=== PATIENT | male | born 1955 | race Caucasian/White ===

== ENCOUNTER 2018-02-18 08:15 | Inpatient (IN) | payer MEDICAID, OTHER ==
[~2018-02-18] VITALS: Ht 165.1 cm; Wt 64.7 kg
[~2018-02-18 08:15] MED LIST: BACDS PO; CEPH500C5 PO; METF500T PO; NO HOME MEDS
[2018-02-18] MEDS ORDERED: normal saline 1000ML IV soln IVB ONE (08:50)
[2018-02-18] MEDS ORDERED: levoFLOXACIN-Levaquin 750MG/D5 150 ML IV ONE (08:50)
[2018-02-18] MEDS ORDERED: vancomycin/NS 1 GM ADD-VANTAGE 250 ML IV ONE (08:50)
[2018-02-18 09:23] LABS: BASOPHILS # (AUTO) 0.1 X10'3 (0-0.2); BASOPHILS % (AUTO) 0.9 % (0-1); EOSINOPHILS % (AUTO) 0.3 % (0-6); HEMATOCRIT 42.4 % (42.0-52.0); HEMOGLOBIN 14.6 g/dl (14.0-17.9); LYMPHOCYTES # (AUTO) 1.8 X10'3 (1.1-4.8); LYMPHOCYTES % (AUTO) 15.1 % (21-51); MEAN CORPUSCULAR HEMOGLOBIN 30.3 PG (27.0-31.0); MEAN CORPUSCULAR HGB CONC 34.4 % (33.0-36.5); MEAN CORPUSCULAR VOLUME 88.1 FL (78-98); MEAN PLATELET VOLUME 8.2 FL (7.4-10.4); MONOCYTES # (AUTO) 1.5 X10'3 (0-0.9); MONOCYTES % (AUTO) 13.1 % (2-12); NEUTROPHILS # (AUTO) 8.2 X10'3 (1.8-7.7); NEUTROPHILS % (AUTO) 70.6 % (42-75); PLATELET COUNT 271 X10'3 (140-440); RED BLOOD COUNT 4.82 X10'6 (4.70-6.10); RED CELL DISTRIBUTION WIDTH 11.7 % (11.5-14.5); WHITE BLOOD COUNT 11.6 X10'3 (4.5-11.0)
[2018-02-18 09:38] LABS: PROTHROMBIN TIME 10.8 SECONDS (9.0-12.0)
[2018-02-18 09:45] LABS: ALANINE AMINOTRANSFERASE 39 U/L (12-78); ALBUMIN 3.1 G/DL (3.4-5.0); ALBUMIN/GLOBULIN RATIO 0.5 (1.1-1.5); ALKALINE PHOSPHATASE 102 IU/L (46-116); ANION GAP 11 (8-16); ASPARTATE AMINO TRANSFERASE 35 U/L (10-37); BILIRUBIN,TOTAL 0.3 MG/DL (0.1-1.0); BLOOD UREA NITROGEN 8 MG/DL (7-18); BUN/CREATININE RATIO 8.2 (5.4-32.0); C-REACTIVE PROTEIN 24.05 MG/DL (0.0-0.5); CALCIUM 9.4 MG/DL (8.5-10.1); CHLORIDE 92 MMOL/L (99-107); CREATININE 0.98 MG/DL (0.60-1.10); GLUCOSE 215 MG/DL (70-104); POTASSIUM 3.8 MMOL/L (3.5-5.1); SODIUM 129 MMOL/L (135-145); TOTAL CARBON DIOXIDE 25.6 MMOL/L (24-32); eGFR 78 ML/MIN
[2018-02-18 10:42] LABS: HEMOGLOBIN A1C 7.6 % (4.5-6.2)
[2018-02-18] MEDS ORDERED: acetaminophen 325mg tablet PO PRN ×2 (10:55)
[2018-02-18] MEDS ORDERED: potassium Cl 40MEQ/NS 500ml 500 ML IV PRN ×2 (10:55)
[2018-02-18] MEDS ORDERED: potassium Cl 20 mEq SR tablet PO PRN ×2 (10:55)
[2018-02-18] MEDS ORDERED: dextrose 50%-water 50ml dispensing syringe IV PRN ×2 (10:55)
[2018-02-18] MEDS ORDERED: magnesium 1gm/100ml D5W IVPB 100 ML IV PRN (10:55)
[2018-02-18] MEDS ORDERED: docusate sod 100mg capsule PO PRN (10:55)
[2018-02-18] MEDS ORDERED: dextrose ORAL solution 15 GM/59 ML bottle PO PRN ×2 (10:55)
[2018-02-18] MEDS ORDERED: ondansetron/PF 4mg/2ml inj IV PRN (10:55)
[2018-02-18] MEDS ORDERED: glucagon, human recombinant 1mg kit SUBCUT PRN (10:55)
[2018-02-18] MEDS ORDERED: magnesium Cl slow-release 64mg tablet PO PRN (10:55)
[2018-02-18] MEDS ORDERED: magnesium 4gm in 100ml NS 100 ML IV PRN (10:55)
[2018-02-18] MEDS ORDERED: MESSAGE TO PHARMACY PO ONE (10:55)
[2018-02-18] MEDS: normal saline 1000ml 1,000 ML IV SCH ×2 (11:36→21:07)
[2018-02-18] MEDS ORDERED: METF500T PO (11:50)
[2018-02-18] MEDS ORDERED: BACDS PO (11:50)
[2018-02-18] MEDS ORDERED: CEPH-572 PO (11:50)
[2018-02-18] MEDS: HYDROcodone/acetaminophen 5mg/325mg tablet PO PRN ×2 (11:52→19:07)
[2018-02-18 13:00] VITALS: BP 126/61
[2018-02-18] MEDS: insulin Lispro (HumaLOG) vial - multi-dose SQ SCH (14:29)
[2018-02-18 18:00] VITALS: BP 141/51
[2018-02-18] MEDS: vancomycin/NS 1 GM ADD-VANTAGE 250 ML IV SCH (20:54)
[2018-02-18] MEDS: insulin glargine (Lantus) pen - multi-dose SQ SCH (21:00)
[2018-02-18] MEDS ORDERED: temazepam 15mg capsule PO PRN (21:00)
[2018-02-18] MEDS: heparin, porcine 5000 units/ml vial SQ SCH (21:24)
[2018-02-18 22:00] VITALS: BP 119/73
[2018-02-19] MEDS: HYDROcodone/acetaminophen 5mg/325mg tablet PO PRN ×5 (01:30→21:59)
[2018-02-19 02:00] VITALS: BP 135/70
[2018-02-19 05:58] LABS: BASOPHILS % (AUTO) 0.5 % (0-1); EOSINOPHILS # (AUTO) 0.1 X10'3 (0-0.9); EOSINOPHILS % (AUTO) 1.4 % (0-6); HEMATOCRIT 33.2 % (42.0-52.0); HEMOGLOBIN 11.6 g/dl (14.0-17.9); LYMPHOCYTES # (AUTO) 2.7 X10'3 (1.1-4.8); MEAN CORPUSCULAR HEMOGLOBIN 30.5 PG (27.0-31.0); MEAN CORPUSCULAR HGB CONC 34.8 % (33.0-36.5); MEAN CORPUSCULAR VOLUME 87.5 FL (78-98); MEAN PLATELET VOLUME 8.4 FL (7.4-10.4); MONOCYTES # (AUTO) 1.3 X10'3 (0-0.9); MONOCYTES % (AUTO) 12.9 % (2-12); NEUTROPHILS # (AUTO) 6.1 X10'3 (1.8-7.7); NEUTROPHILS % (AUTO) 59.2 % (42-75); PLATELET COUNT 257 X10'3 (140-440); RED BLOOD COUNT 3.79 X10'6 (4.70-6.10); RED CELL DISTRIBUTION WIDTH 12.5 % (11.5-14.5); WHITE BLOOD COUNT 10.4 X10'3 (4.5-11.0)
[2018-02-19 06:00] VITALS: BP 120/68
[2018-02-19 06:19] LABS: ALANINE AMINOTRANSFERASE 38 U/L (12-78); ALBUMIN 2.3 G/DL (3.4-5.0); ALBUMIN/GLOBULIN RATIO 0.5 (1.1-1.5); ALKALINE PHOSPHATASE 72 IU/L (46-116); ANION GAP 8 (8-16); ASPARTATE AMINO TRANSFERASE 30 U/L (10-37); BILIRUBIN,TOTAL 0.3 MG/DL (0.1-1.0); BLOOD UREA NITROGEN 9 MG/DL (7-18); BUN/CREATININE RATIO 10.5 (5.4-32.0); CALCIUM 8.3 MG/DL (8.5-10.1); CHLORIDE 102 MMOL/L (99-107); CREATININE 0.86 MG/DL (0.60-1.10); GLUCOSE 143 MG/DL (70-104); POTASSIUM 4.2 MMOL/L (3.5-5.1); SODIUM 136 MMOL/L (135-145); TOTAL CARBON DIOXIDE 26.3 MMOL/L (24-32); TOTAL PROTEIN 6.7 G/DL (6.4-8.2); eGFR 90 ML/MIN
[2018-02-19] MEDS: K and/or MAG REPLACEMENT MC SCH (07:10)
[2018-02-19] MEDS: normal saline 1000ml 1,000 ML IV SCH ×2 (08:42→20:33)
[2018-02-19] MEDS: nicotine 14mg patch - 24hr TD SCH (08:43)
[2018-02-19] MEDS: heparin, porcine 5000 units/ml vial SQ SCH ×2 (08:43→20:33)
[2018-02-19] MEDS: vancomycin/NS 1 GM ADD-VANTAGE 250 ML IV SCH ×2 (08:45→21:55)
[2018-02-19 10:00] VITALS: BP 135/60
[2018-02-19] MEDS ORDERED: iohexol 350MG/ML 100ml bottle IV ONE (10:45)
[2018-02-19] MEDS ORDERED: iohexol 350 MG/ML 50ML vial IV ONE (10:46)
[2018-02-19] MEDS ORDERED: LORazepam 2 mg/ml vial IV PRN (18:50)
[2018-02-19] MEDS ORDERED: thiamine inj. 100 MG in normal saline 100ml IV soln 100 ML IV ONE (18:50)
[2018-02-19] MEDS ORDERED: haloperidol lactate 5mg/ml inj IM PRN (18:50)
[2018-02-19] MEDS ORDERED: haloperidol 5mg tablet PO PRN (18:50)
[2018-02-19] MEDS ORDERED: LORazepam 1 MG tablet PO PRN (18:50)
[2018-02-19] MEDS ORDERED: VANCOMYCIN LEVEL IV ONE (20:30)
[2018-02-19] MEDS: lactobacillus rhamnosus 10,000 MMU CELLS/CAPSULE PO SCH (20:34)
[2018-02-19] MEDS: insulin glargine (Lantus) pen - multi-dose SQ SCH (21:13)
[2018-02-19] MEDS: ertapenem sod inj 1 GM in normal saline 100ml IV soln 100 ML IV SCH (21:19)
[2018-02-20] VITALS (18 sets, daily range): BP systolic 121–168; BP diastolic 55–80
[2018-02-20] MEDS: normal saline 1000ml 1,000 ML IV SCH ×2 (02:55→13:34)
[2018-02-20] MEDS: nicotine 14mg patch - 24hr TD SCH (07:44)
[2018-02-20] MEDS: ertapenem sod inj 1 GM in normal saline 100ml IV soln 100 ML IV SCH (07:44)
[2018-02-20] MEDS: heparin, porcine 5000 units/ml vial SQ SCH ×2 (08:00→20:52)
[2018-02-20] MEDS ORDERED: folic acid inj. 2 MG, thiamine inj. 100 MG, MVI, adult No.4 with vit. K 10 ML in dextro... IV SCH ×4 (08:00)
[2018-02-20] MEDS: lactobacillus rhamnosus 10,000 MMU CELLS/CAPSULE PO SCH ×2 (08:00→20:52)
[2018-02-20] MEDS: K and/or MAG REPLACEMENT MC SCH (08:00)
[2018-02-20 08:31] LABS: BASOPHILS # (AUTO) 0.1 X10'3 (0-0.2); BASOPHILS % (AUTO) 0.7 % (0-1); EOSINOPHILS # (AUTO) 0.2 X10'3 (0-0.9); EOSINOPHILS % (AUTO) 2.3 % (0-6); HEMATOCRIT 35.4 % (42.0-52.0); HEMOGLOBIN 12.2 g/dl (14.0-17.9); LYMPHOCYTES # (AUTO) 1.8 X10'3 (1.1-4.8); LYMPHOCYTES % (AUTO) 18.9 % (21-51); MEAN CORPUSCULAR HEMOGLOBIN 30.3 PG (27.0-31.0); MEAN CORPUSCULAR HGB CONC 34.5 % (33.0-36.5); MEAN CORPUSCULAR VOLUME 87.9 FL (78-98); MEAN PLATELET VOLUME 7.6 FL (7.4-10.4); MONOCYTES % (AUTO) 10.5 % (2-12); NEUTROPHILS # (AUTO) 6.3 X10'3 (1.8-7.7); NEUTROPHILS % (AUTO) 67.6 % (42-75); PLATELET COUNT 334 X10'3 (140-440); RED BLOOD COUNT 4.03 X10'6 (4.70-6.10); RED CELL DISTRIBUTION WIDTH 12.2 % (11.5-14.5); WHITE BLOOD COUNT 9.4 X10'3 (4.5-11.0)
[2018-02-20 08:47] LABS: ALANINE AMINOTRANSFERASE 47 U/L (12-78); ALBUMIN 2.4 G/DL (3.4-5.0); ALBUMIN/GLOBULIN RATIO 0.5 (1.1-1.5); ALKALINE PHOSPHATASE 77 IU/L (46-116); ANION GAP 8 (8-16); ASPARTATE AMINO TRANSFERASE 29 U/L (10-37); BILIRUBIN,TOTAL 0.3 MG/DL (0.1-1.0); BLOOD UREA NITROGEN 5 MG/DL (7-18); BUN/CREATININE RATIO 6.5 (5.4-32.0); CALCIUM 8.6 MG/DL (8.5-10.1); CHLORIDE 102 MMOL/L (99-107); CREATININE 0.77 MG/DL (0.60-1.10); GLUCOSE 143 MG/DL (70-104); MAGNESIUM 1.9 MG/DL (1.5-2.4); PHOSPHORUS 3.2 MG/DL (2.3-4.5); POTASSIUM 3.8 MMOL/L (3.5-5.1); SODIUM 137 MMOL/L (135-145); TOTAL CARBON DIOXIDE 27.5 MMOL/L (24-32); TOTAL PROTEIN 7.2 G/DL (6.4-8.2); eGFR > 90 ML/MIN
[2018-02-20] MEDS: [UNRECOGNIZED DRUG - REMARK] PO NR (10:00)
[2018-02-20] MEDS ORDERED: fentaNYL/PF 50MCG/1 ML 2ML syringe ONE (10:21)
[2018-02-20] MEDS ORDERED: midazolam 2 mg/2 ml injection ONE (10:21)
[2018-02-20] MEDS ORDERED: BUPIVAcaine/dex-water/PF 7.5 mg/ml 2ml ampul ONE (10:23)
[2018-02-20] MEDS ORDERED: ringers solution, lacted 1,000 ML IV SCH (11:22)
[2018-02-20] MEDS ORDERED: ondansetron/PF 4mg/2ml inj IV PRN (11:25)
[2018-02-20] MEDS ORDERED: meperidine/PF 25mg/ml syringe IV PRN ×3 (11:25)
[2018-02-20] MEDS ORDERED: proCHLORperazine 10 MG/2 ml inj IV PRN (11:25)
[2018-02-20] MEDS ORDERED: morphine 4 MG/ML inj SYRINge IV PRN ×2 (11:25)
[2018-02-20] MEDS: HYDROcodone/acetaminophen 5mg/325mg tablet PO PRN (13:34)
[2018-02-20] MEDS: insulin Lispro (HumaLOG) vial - multi-dose SQ SCH ×2 (13:41→18:50)
[2018-02-20] MEDS ORDERED: oxyCODONE IR 5mg (immed. release) tablet PO ONE (16:55)
[2018-02-20] MEDS: insulin glargine (Lantus) pen - multi-dose SQ SCH (21:02)
[2018-02-20] MEDS: oxyCODONE IR 5mg (immed. release) tablet PO PRN (21:05)
[2018-02-21] MEDS: normal saline 1000ml 1,000 ML IV SCH (00:53)
[2018-02-21] MEDS: oxyCODONE IR 5mg (immed. release) tablet PO PRN ×5 (00:53→18:54)
[2018-02-21 02:00] VITALS: BP 162/66
[2018-02-21 05:00] VITALS: BP 173/76
[2018-02-21 06:07] LABS: BASOPHILS % (AUTO) 0.5 % (0-1); EOSINOPHILS # (AUTO) 0.3 X10'3 (0-0.9); EOSINOPHILS % (AUTO) 3.4 % (0-6); HEMATOCRIT 35.4 % (42.0-52.0); HEMOGLOBIN 12.3 g/dl (14.0-17.9); LYMPHOCYTES # (AUTO) 2.6 X10'3 (1.1-4.8); MEAN CORPUSCULAR HEMOGLOBIN 30.3 PG (27.0-31.0); MEAN CORPUSCULAR HGB CONC 34.8 % (33.0-36.5); MEAN PLATELET VOLUME 7.6 FL (7.4-10.4); MONOCYTES # (AUTO) 1.1 X10'3 (0-0.9); MONOCYTES % (AUTO) 12.4 % (2-12); NEUTROPHILS # (AUTO) 5.1 X10'3 (1.8-7.7); NEUTROPHILS % (AUTO) 55.7 % (42-75); PLATELET COUNT 366 X10'3 (140-440); RED BLOOD COUNT 4.07 X10'6 (4.70-6.10); RED CELL DISTRIBUTION WIDTH 12.2 % (11.5-14.5); WHITE BLOOD COUNT 9.1 X10'3 (4.5-11.0)
[2018-02-21 06:17] LABS: ALANINE AMINOTRANSFERASE 50 U/L (12-78); ALBUMIN 2.2 G/DL (3.4-5.0); ALBUMIN/GLOBULIN RATIO 0.5 (1.1-1.5); ALKALINE PHOSPHATASE 77 IU/L (46-116); ANION GAP 6 (8-16); ASPARTATE AMINO TRANSFERASE 31 U/L (10-37); BILIRUBIN,TOTAL 0.3 MG/DL (0.1-1.0); BLOOD UREA NITROGEN 6 MG/DL (7-18); BUN/CREATININE RATIO 7.6 (5.4-32.0); CALCIUM 8.3 MG/DL (8.5-10.1); CHLORIDE 102 MMOL/L (99-107); CREATININE 0.79 MG/DL (0.60-1.10); GLUCOSE 128 MG/DL (70-104); MAGNESIUM 1.9 MG/DL (1.5-2.4); PHOSPHORUS 3.8 MG/DL (2.3-4.5); POTASSIUM 3.6 MMOL/L (3.5-5.1); SODIUM 137 MMOL/L (135-145); TOTAL CARBON DIOXIDE 29.3 MMOL/L (24-32); TOTAL PROTEIN 6.9 G/DL (6.4-8.2); eGFR > 90 ML/MIN
[2018-02-21] MEDS: multivitamins, therapeutics tablet PO SCH (07:37)
[2018-02-21] MEDS: lactobacillus rhamnosus 10,000 MMU CELLS/CAPSULE PO SCH ×2 (07:37→20:55)
[2018-02-21] MEDS: ertapenem sod inj 1 GM in normal saline 100ml IV soln 100 ML IV SCH (07:37)
[2018-02-21] MEDS: thiamine 100mg tablet PO SCH (07:38)
[2018-02-21] MEDS: folic acid 1mg tablet PO SCH (07:38)
[2018-02-21] MEDS: nicotine 14mg patch - 24hr TD SCH (07:39)
[2018-02-21] MEDS: heparin, porcine 5000 units/ml vial SQ SCH ×2 (07:39→17:33)
[2018-02-21] MEDS: K and/or MAG REPLACEMENT MC SCH (08:00)
[2018-02-21] MEDS: insulin Lispro (HumaLOG) vial - multi-dose SQ SCH ×3 (09:09→18:56)
[2018-02-21 10:00] VITALS: BP 99/66
[2018-02-21] MEDS: [UNRECOGNIZED DRUG - REMARK] PO NR (10:52)
[2018-02-21] MEDS: potassium Cl 20mEq in NS 1,000 ML IV SCH (14:20)
[2018-02-21] MEDS: metroNIDAZOLE-Flagyl 500mg/NS 100 ML IV SCH (16:11)
[2018-02-21 18:00] VITALS: BP 174/79
[2018-02-21] MEDS ORDERED: VANCOMYCIN LEVEL IV ONE (20:30)
[2018-02-21] MEDS: insulin glargine (Lantus) pen - multi-dose SQ SCH (20:57)
[2018-02-21 22:00] VITALS: BP 148/72
[2018-02-22] VITALS (13 sets, daily range): BP systolic 116–166; BP diastolic 65–77
[2018-02-22] MEDS: metroNIDAZOLE-Flagyl 500mg/NS 100 ML IV SCH ×3 (00:02→16:01)
[2018-02-22] MEDS: oxyCODONE IR 5mg (immed. release) tablet PO PRN ×2 (00:03→14:43)
[2018-02-22 04:54] LABS: BASOPHILS # (AUTO) 0.1 X10'3 (0-0.2); BASOPHILS % (AUTO) 0.7 % (0-1); EOSINOPHILS # (AUTO) 0.4 X10'3 (0-0.9); EOSINOPHILS % (AUTO) 3.6 % (0-6); HEMATOCRIT 35.1 % (42.0-52.0); HEMOGLOBIN 12.1 g/dl (14.0-17.9); LYMPHOCYTES # (AUTO) 2.4 X10'3 (1.1-4.8); LYMPHOCYTES % (AUTO) 24.5 % (21-51); MEAN CORPUSCULAR HEMOGLOBIN 29.9 PG (27.0-31.0); MEAN CORPUSCULAR HGB CONC 34.3 % (33.0-36.5); MEAN CORPUSCULAR VOLUME 87.1 FL (78-98); MEAN PLATELET VOLUME 7.2 FL (7.4-10.4); MONOCYTES # (AUTO) 1.4 X10'3 (0-0.9); MONOCYTES % (AUTO) 13.7 % (2-12); NEUTROPHILS # (AUTO) 5.8 X10'3 (1.8-7.7); NEUTROPHILS % (AUTO) 57.5 % (42-75); PLATELET COUNT 423 X10'3 (140-440); RED BLOOD COUNT 4.04 X10'6 (4.70-6.10); RED CELL DISTRIBUTION WIDTH 12.5 % (11.5-14.5)
[2018-02-22 05:26] LABS: ALANINE AMINOTRANSFERASE 39 U/L (12-78); ALBUMIN 2.1 G/DL (3.4-5.0); ALBUMIN/GLOBULIN RATIO 0.4 (1.1-1.5); ALKALINE PHOSPHATASE 83 IU/L (46-116); ANION GAP 9 (8-16); ASPARTATE AMINO TRANSFERASE 32 U/L (10-37); BILIRUBIN,TOTAL 0.3 MG/DL (0.1-1.0); BLOOD UREA NITROGEN 6 MG/DL (7-18); BUN/CREATININE RATIO 7.5 (5.4-32.0); CALCIUM 8.8 MG/DL (8.5-10.1); CHLORIDE 101 MMOL/L (99-107); GLUCOSE 108 MG/DL (70-104); MAGNESIUM 1.9 MG/DL (1.5-2.4); POTASSIUM 3.6 MMOL/L (3.5-5.1); SODIUM 138 MMOL/L (135-145); TOTAL CARBON DIOXIDE 28.5 MMOL/L (24-32); TOTAL PROTEIN 6.9 G/DL (6.4-8.2); eGFR > 90 ML/MIN
[2018-02-22] MEDS: nicotine 14mg patch - 24hr TD SCH (07:15)
[2018-02-22] MEDS: CefTRIAXone 2gm/D5W 50ml 50 ML IV SCH (07:16)
[2018-02-22] MEDS: folic acid 1mg tablet PO SCH (08:00)
[2018-02-22] MEDS: multivitamins, therapeutics tablet PO SCH (08:00)
[2018-02-22] MEDS: heparin, porcine 5000 units/ml vial SQ SCH ×2 (08:00→20:00)
[2018-02-22] MEDS: lactobacillus rhamnosus 10,000 MMU CELLS/CAPSULE PO SCH ×2 (08:00→19:40)
[2018-02-22] MEDS: K and/or MAG REPLACEMENT MC SCH (08:00)
[2018-02-22] MEDS: thiamine 100mg tablet PO SCH (08:00)
[2018-02-22] MEDS ORDERED: VANCOMYCIN LEVEL IV ONE (08:30)
[2018-02-22] MEDS: potassium Cl 20mEq in NS 1,000 ML IV SCH ×2 (10:06→15:31)
[2018-02-22] MEDS ORDERED: normal saline 1000ml 1,000 ML IV SCH (10:23)
[2018-02-22] MEDS ORDERED: iohexol 300mg/ml 100ml inj. ONE (10:24)
[2018-02-22] MEDS ORDERED: LIDOcaine 1%/PF 5ML 10 MG/ML VIAL ONE (10:24)
[2018-02-22] MEDS ORDERED: midazolam 2 mg/2 ml injection IV PRN (10:25)
[2018-02-22] MEDS ORDERED: fentaNYL/PF 50MCG/1 ML 2ML syringe IV PRN (10:25)
[2018-02-22] MEDS ORDERED: LIDOcaine 1%/PF 5ML 10 MG/ML VIAL SQ ONE (10:25)
[2018-02-22] MEDS ORDERED: heparin 1,000 UNITS/NS 500ml 500 ML ICATH ONE (10:25)
[2018-02-22] MEDS ORDERED: midazolam 2 mg/2 ml injection ONE (10:26)
[2018-02-22] MEDS ORDERED: fentaNYL/PF 50MCG/1 ML 2ML syringe ONE ×2 (10:26→11:24)
[2018-02-22] MEDS ORDERED: heparin 1,000 UNITS/NS 500ml 500 ML ONE (10:26)
[2018-02-22] MEDS ORDERED: hydrALAZINE 20mg/ml inj. IV ONE (10:50)
[2018-02-22] MEDS ORDERED: iohexol 300 MG/1 ML 50ml polymer ONE (11:12)
[2018-02-22] MEDS: vancomycin inj 1,250 MG in normal saline 250ml IV soln 250 ML IV SCH (17:33)
[2018-02-22] MEDS ORDERED: metoprolol tartrate 1mg/ml inj IV PRN (20:10)
[2018-02-22] MEDS ORDERED: nitroGLYCERIN 0.4mg SUBLingual tab SL PRN (20:10)
[2018-02-22] MEDS ORDERED: CAFFEINE CITRATE 60 MG/3 ML injection vial IV PRN (20:10)
[2018-02-22] MEDS ORDERED: regadenoson 0.4mg/5ml syringe IV PRN (20:10)
[2018-02-22] MEDS: insulin glargine (Lantus) pen - multi-dose SQ SCH (21:32)
[2018-02-23] VITALS (16 sets, daily range): BP systolic 107–190; BP diastolic 54–87
[2018-02-23] MEDS: metroNIDAZOLE-Flagyl 500mg/NS 100 ML IV SCH ×3 (01:04→16:32)
[2018-02-23] MEDS: vancomycin inj 1,250 MG in normal saline 250ml IV soln 250 ML IV SCH ×3 (01:53→20:57)
[2018-02-23 05:54] LABS: BASOPHILS % (AUTO) 0.3 % (0-1); EOSINOPHILS # (AUTO) 0.3 X10'3 (0-0.9); EOSINOPHILS % (AUTO) 2.5 % (0-6); HEMATOCRIT 33.8 % (42.0-52.0); HEMOGLOBIN 11.9 g/dl (14.0-17.9); LYMPHOCYTES # (AUTO) 1.8 X10'3 (1.1-4.8); LYMPHOCYTES % (AUTO) 16.8 % (21-51); MEAN CORPUSCULAR HEMOGLOBIN 30.5 PG (27.0-31.0); MEAN CORPUSCULAR HGB CONC 35.1 % (33.0-36.5); MEAN CORPUSCULAR VOLUME 86.7 FL (78-98); MEAN PLATELET VOLUME 7.3 FL (7.4-10.4); MONOCYTES % (AUTO) 8.7 % (2-12); NEUTROPHILS # (AUTO) 7.9 X10'3 (1.8-7.7); NEUTROPHILS % (AUTO) 71.7 % (42-75); PLATELET COUNT 433 X10'3 (140-440); RED BLOOD COUNT 3.89 X10'6 (4.70-6.10); RED CELL DISTRIBUTION WIDTH 12.2 % (11.5-14.5)
[2018-02-23] MEDS: oxyCODONE IR 5mg (immed. release) tablet PO PRN ×2 (06:01→12:02)
[2018-02-23 06:19] LABS: ALANINE AMINOTRANSFERASE 39 U/L (12-78); ALBUMIN 2.1 G/DL (3.4-5.0); ALBUMIN/GLOBULIN RATIO 0.5 (1.1-1.5); ALKALINE PHOSPHATASE 75 IU/L (46-116); ANION GAP 8 (8-16); ASPARTATE AMINO TRANSFERASE 27 U/L (10-37); BILIRUBIN,TOTAL 0.3 MG/DL (0.1-1.0); BLOOD UREA NITROGEN 7 MG/DL (7-18); BUN/CREATININE RATIO 9.7 (5.4-32.0); CALCIUM 8.3 MG/DL (8.5-10.1); CHLORIDE 104 MMOL/L (99-107); CREATININE 0.72 MG/DL (0.60-1.10); GLUCOSE 125 MG/DL (70-104); MAGNESIUM 1.9 MG/DL (1.5-2.4); PHOSPHORUS 3.4 MG/DL (2.3-4.5); POTASSIUM 3.5 MMOL/L (3.5-5.1); SODIUM 139 MMOL/L (135-145); TOTAL CARBON DIOXIDE 26.8 MMOL/L (24-32); TOTAL PROTEIN 6.7 G/DL (6.4-8.2); eGFR > 90 ML/MIN
[2018-02-23] MEDS: K and/or MAG REPLACEMENT MC SCH (08:00)
[2018-02-23] MEDS ORDERED: CAFFEINE CITRATE 60 MG/3 ML injection vial IV ONE (09:00)
[2018-02-23] MEDS ORDERED: regadenoson 0.4mg/5ml syringe IV ONE (09:00)
[2018-02-23] MEDS: multivitamins, therapeutics tablet PO SCH (11:13)
[2018-02-23] MEDS: lactobacillus rhamnosus 10,000 MMU CELLS/CAPSULE PO SCH ×2 (11:13→20:57)
[2018-02-23] MEDS: folic acid 1mg tablet PO SCH (11:14)
[2018-02-23] MEDS: nicotine 14mg patch - 24hr TD SCH (11:14)
[2018-02-23] MEDS: heparin, porcine 5000 units/ml vial SQ SCH ×2 (11:15→21:07)
[2018-02-23] MEDS: thiamine 100mg tablet PO SCH (11:18)
[2018-02-23] MEDS: potassium Cl 20mEq in NS 1,000 ML IV SCH ×2 (11:57→20:07)
[2018-02-23] MEDS: CefTRIAXone 2gm/D5W 50ml 50 ML IV SCH (13:00)
[2018-02-23] MEDS: insulin Lispro (HumaLOG) vial - multi-dose SQ SCH ×2 (14:16→19:02)
[2018-02-23] MEDS: metoprolol tartrate 25mg tablet PO SCH (20:57)
[2018-02-23] MEDS: lisinopril 5mg tablet PO SCH (20:57)
[2018-02-23] MEDS: atorvastatin 20mg tablet PO SCH (21:08)
[2018-02-23] MEDS: insulin glargine (Lantus) pen - multi-dose SQ SCH (22:18)
[2018-02-24] MEDS: metroNIDAZOLE-Flagyl 500mg/NS 100 ML IV SCH ×2 (00:49→09:09)
[2018-02-24] MEDS: oxyCODONE IR 5mg (immed. release) tablet PO PRN ×3 (02:33→21:05)
[2018-02-24] MEDS: vancomycin inj 1,250 MG in normal saline 250ml IV soln 250 ML IV SCH ×2 (04:13→11:53)
[2018-02-24] MEDS: potassium Cl 20mEq in NS 1,000 ML IV SCH (04:25)
[2018-02-24 06:00] VITALS: BP 113/71
[2018-02-24 06:13] LABS: BASOPHILS # (AUTO) 0.1 X10'3 (0-0.2); BASOPHILS % (AUTO) 1.1 % (0-1); EOSINOPHILS # (AUTO) 0.2 X10'3 (0-0.9); EOSINOPHILS % (AUTO) 2.3 % (0-6); HEMATOCRIT 31.6 % (42.0-52.0); HEMOGLOBIN 10.9 g/dl (14.0-17.9); LYMPHOCYTES # (AUTO) 2.5 X10'3 (1.1-4.8); LYMPHOCYTES % (AUTO) 25.2 % (21-51); MEAN CORPUSCULAR HEMOGLOBIN 30.2 PG (27.0-31.0); MEAN CORPUSCULAR HGB CONC 34.5 % (33.0-36.5); MEAN CORPUSCULAR VOLUME 87.5 FL (78-98); MEAN PLATELET VOLUME 7.5 FL (7.4-10.4); MONOCYTES # (AUTO) 1.2 X10'3 (0-0.9); MONOCYTES % (AUTO) 11.6 % (2-12); NEUTROPHILS % (AUTO) 59.8 % (42-75); PLATELET COUNT 410 X10'3 (140-440); RED BLOOD COUNT 3.61 X10'6 (4.70-6.10); RED CELL DISTRIBUTION WIDTH 12.3 % (11.5-14.5); WHITE BLOOD COUNT 10.1 X10'3 (4.5-11.0)
[2018-02-24 06:21] LABS: ALBUMIN 2.1 G/DL (3.4-5.0); ANION GAP 8 (8-16); BLOOD UREA NITROGEN 6 MG/DL (7-18); BUN/CREATININE RATIO 7.4 (5.4-32.0); CALCIUM 8.2 MG/DL (8.5-10.1); CHLORIDE 105 MMOL/L (99-107); CHOL/HDL RATIO 3.2 (0.00-4.99); CHOLESTEROL 86 MG/DL (0-200); CREATININE 0.81 MG/DL (0.60-1.10); GLUCOSE 128 MG/DL (70-104); HDL CHOLESTEROL 27 MG/DL (35-60); LDL CHOLESTEROL 49 MG/DL (50-100); MAGNESIUM 1.8 MG/DL (1.5-2.4); PHOSPHORUS 3.6 MG/DL (2.3-4.5); POTASSIUM 3.8 MMOL/L (3.5-5.1); SODIUM 139 MMOL/L (135-145); TOTAL CARBON DIOXIDE 26.1 MMOL/L (24-32); TRIGLYCERIDES 91 MG/DL (20-135); eGFR > 90 ML/MIN
[2018-02-24] MEDS ORDERED: iohexol 350MG/ML 100ml bottle IV ONE (06:57)
[2018-02-24] MEDS: K and/or MAG REPLACEMENT MC SCH (07:50)
[2018-02-24] MEDS: CefTRIAXone 2gm/D5W 50ml 50 ML IV SCH (07:55)
[2018-02-24] MEDS: lactobacillus rhamnosus 10,000 MMU CELLS/CAPSULE PO SCH ×2 (07:58→20:55)
[2018-02-24] MEDS: thiamine 100mg tablet PO SCH (07:58)
[2018-02-24] MEDS: folic acid 1mg tablet PO SCH (07:58)
[2018-02-24] MEDS: heparin, porcine 5000 units/ml vial SQ SCH ×2 (07:58→20:56)
[2018-02-24] MEDS: multivitamins, therapeutics tablet PO SCH (07:58)
[2018-02-24] MEDS: metoprolol tartrate 25mg tablet PO SCH ×2 (07:59→20:55)
[2018-02-24] MEDS: nicotine 14mg patch - 24hr TD SCH (07:59)
[2018-02-24] MEDS: atorvastatin 20mg tablet PO SCH (07:59)
[2018-02-24] MEDS: aspirin 81mg tablet.DR PO SCH (09:09)
[2018-02-24] MEDS: insulin Lispro (HumaLOG) vial - multi-dose SQ SCH (09:11)
[2018-02-24 10:00] VITALS: BP 108/57
[2018-02-24] MEDS: MESSAGE TO NURSING PO NR (10:23)
[2018-02-24] MEDS ORDERED: VANCOMYCIN LEVEL IV ONE (11:30)
[2018-02-24] MEDS ORDERED: normal saline 1000ml 1,000 ML IV SCH (12:24)
[2018-02-24] MEDS ORDERED: heparin 1,000 UNITS/NS 500ml 500 ML ICATH ONE (12:25)
[2018-02-24] MEDS ORDERED: midazolam 2 mg/2 ml injection IV PRN (12:25)
[2018-02-24] MEDS ORDERED: LIDOcaine 1%/PF 5ML 10 MG/ML VIAL SQ ONE (12:25)
[2018-02-24] MEDS ORDERED: fentaNYL/PF 50MCG/1 ML 2ML syringe IV PRN (12:25)
[2018-02-24] MEDS ORDERED: LIDOcaine 1%/PF 5ML 10 MG/ML VIAL ONE (12:30)
[2018-02-24] MEDS ORDERED: heparin 1,000 UNITS/NS 500ml 500 ML ONE (12:30)
[2018-02-24] MEDS ORDERED: iohexol 300mg/ml 100ml inj. ONE (12:30)
[2018-02-24] MEDS ORDERED: fentaNYL/PF 50MCG/1 ML 2ML syringe ONE (12:55)
[2018-02-24] MEDS ORDERED: atropine 0.1mg/ml 10ml syringe ONE (13:09)
[2018-02-24] MEDS ORDERED: hydrALAZINE 20mg/ml inj. IV ONE (13:14)
[2018-02-24] MEDS: normal saline 1000ml 1,000 ML IV SCH (14:56)
[2018-02-24 18:00] VITALS: BP 187/92
[2018-02-24] MEDS ORDERED: hydrALAZINE 20mg/ml inj. IV PRN (18:45)
[2018-02-24] MEDS: lisinopril 5mg tablet PO SCH (20:55)
[2018-02-24] MEDS: VANCOMYCIN 750MG IV in NS 250 ML IV SCH (20:56)
[2018-02-24] MEDS: insulin glargine (Lantus) pen - multi-dose SQ SCH (21:13)
[2018-02-24 22:00] VITALS: BP 111/60
[2018-02-24] MEDS: metroNIDAZOLE 500mg tablet PO SCH (23:55)
[2018-02-25] VITALS (18 sets, daily range): BP systolic 104–160; BP diastolic 60–94
[2018-02-25] MEDS: potassium Cl 20mEq in NS 1,000 ML IV SCH ×2 (02:38→15:01)
[2018-02-25] MEDS: VANCOMYCIN 750MG IV in NS 250 ML IV SCH ×3 (05:04→21:00)
[2018-02-25 05:51] LABS: BASOPHILS # (AUTO) 0.1 X10'3 (0-0.2); BASOPHILS % (AUTO) 0.7 % (0-1); EOSINOPHILS # (AUTO) 0.3 X10'3 (0-0.9); EOSINOPHILS % (AUTO) 2.7 % (0-6); HEMATOCRIT 32.5 % (42.0-52.0); HEMOGLOBIN 11.2 g/dl (14.0-17.9); LYMPHOCYTES # (AUTO) 2.7 X10'3 (1.1-4.8); LYMPHOCYTES % (AUTO) 27.2 % (21-51); MEAN CORPUSCULAR HGB CONC 34.6 % (33.0-36.5); MEAN CORPUSCULAR VOLUME 86.7 FL (78-98); MEAN PLATELET VOLUME 7.5 FL (7.4-10.4); MONOCYTES # (AUTO) 1.3 X10'3 (0-0.9); MONOCYTES % (AUTO) 12.9 % (2-12); NEUTROPHILS # (AUTO) 5.7 X10'3 (1.8-7.7); NEUTROPHILS % (AUTO) 56.5 % (42-75); PLATELET COUNT 463 X10'3 (140-440); RED BLOOD COUNT 3.74 X10'6 (4.70-6.10); RED CELL DISTRIBUTION WIDTH 12.6 % (11.5-14.5); WHITE BLOOD COUNT 10.1 X10'3 (4.5-11.0)
[2018-02-25 06:33] LABS: ANION GAP 7 (8-16); BLOOD UREA NITROGEN 7 MG/DL (7-18); CHLORIDE 105 MMOL/L (99-107); CREATININE 0.88 MG/DL (0.60-1.10); GLUCOSE 112 MG/DL (70-104); MAGNESIUM 1.8 MG/DL (1.5-2.4); POTASSIUM 3.5 MMOL/L (3.5-5.1); SODIUM 139 MMOL/L (135-145); TOTAL CARBON DIOXIDE 26.6 MMOL/L (24-32); eGFR 88 ML/MIN
[2018-02-25] MEDS: K and/or MAG REPLACEMENT MC SCH (07:41)
[2018-02-25] MEDS: folic acid 1mg tablet PO SCH (07:41)
[2018-02-25] MEDS: lactobacillus rhamnosus 10,000 MMU CELLS/CAPSULE PO SCH ×2 (07:41→19:51)
[2018-02-25] MEDS: metroNIDAZOLE 500mg tablet PO SCH ×2 (07:41→16:45)
[2018-02-25] MEDS: atorvastatin 20mg tablet PO SCH (07:42)
[2018-02-25] MEDS: thiamine 100mg tablet PO SCH (07:43)
[2018-02-25] MEDS: aspirin 81mg tablet.DR PO SCH (07:43)
[2018-02-25] MEDS: heparin, porcine 5000 units/ml vial SQ SCH ×2 (07:43→19:59)
[2018-02-25] MEDS: multivitamins, therapeutics tablet PO SCH (07:43)
[2018-02-25] MEDS: normal saline 1000ml 1,000 ML IV SCH ×2 (07:52→15:04)
[2018-02-25] MEDS: CefTRIAXone 2gm/D5W 50ml 50 ML IV SCH (07:54)
[2018-02-25] MEDS: nicotine 14mg patch - 24hr TD SCH (07:55)
[2018-02-25] MEDS: metoprolol tartrate 25mg tablet PO SCH ×2 (09:46→19:50)
[2018-02-25] MEDS: MESSAGE TO NURSING PO NR (10:00)
[2018-02-25] MEDS: oxyCODONE IR 5mg (immed. release) tablet PO PRN (10:07)
[2018-02-25] MEDS ORDERED: ringers solution, lacted 1,000 ML IV SCH (10:57)
[2018-02-25] MEDS ORDERED: meperidine/PF 25mg/ml syringe IV PRN ×3 (11:00)
[2018-02-25] MEDS ORDERED: morphine 4 MG/ML inj SYRINge IV PRN ×2 (11:00)
[2018-02-25] MEDS ORDERED: ondansetron/PF 4mg/2ml inj IV PRN ×2 (11:00→12:20)
[2018-02-25] MEDS ORDERED: proCHLORperazine 10 MG/2 ml inj IV PRN (11:00)
[2018-02-25] MEDS ORDERED: ePHEDrine 50MG/ML INJ. ONE (11:11)
[2018-02-25] MEDS ORDERED: MIDAZolam 1mg/ml 10ml vial ONE (11:21)
[2018-02-25] MEDS ORDERED: fentaNYL/PF 50MCG/1 ML 2ML syringe ONE (11:21)
[2018-02-25] MEDS ORDERED: morphine /PF 1mg/ml 10ml inj. ONE (11:21)
[2018-02-25] MEDS ORDERED: naloxone 2mg/2ml inj 1.4 MG in normal saline 500ml IV soln 500 ML IV PRN (12:19)
[2018-02-25] MEDS ORDERED: diphenhydrAMINE 50 mg/ml inj IV PRN (12:20)
[2018-02-25] MEDS: heparin 10,000 units/1 ML INJ ONE ×2 (12:48→12:53)
[2018-02-25] MEDS ORDERED: heparin 1,000unit/ml 10ml vial 10 ML ONE (13:21)
[2018-02-25] MEDS ORDERED: HYDROcodone/acetaminophen 10/325mg tab PO PRN (15:25)
[2018-02-25] MEDS: Potassium Cl inj 20 MEQ in ringers solution, lacted 1,000 ML IV SCH (17:30)
[2018-02-25] MEDS: lisinopril 5mg tablet PO SCH (19:51)
[2018-02-25] MEDS ORDERED: VANCOMYCIN LEVEL IV ONE (20:30)
[2018-02-25] MEDS: insulin glargine (Lantus) pen - multi-dose SQ SCH (21:00)
[2018-02-26] VITALS (18 sets, daily range): BP systolic 106–132; BP diastolic 51–66
[2018-02-26] MEDS: metroNIDAZOLE 500mg tablet PO SCH ×4 (02:15→23:33)
[2018-02-26] MEDS: Potassium Cl inj 20 MEQ in ringers solution, lacted 1,000 ML IV SCH ×3 (02:31→11:22)
[2018-02-26] MEDS: VANCOMYCIN 750MG IV in NS 250 ML IV SCH ×4 (05:00→20:17)
[2018-02-26 05:34] LABS: ANION GAP 6 (8-16); BLOOD UREA NITROGEN 6 MG/DL (7-18); BUN/CREATININE RATIO 7.7 (5.4-32.0); CALCIUM 8.1 MG/DL (8.5-10.1); CHLORIDE 105 MMOL/L (99-107); CREATININE 0.78 MG/DL (0.60-1.10); GLUCOSE 125 MG/DL (70-104); POTASSIUM 3.9 MMOL/L (3.5-5.1); SODIUM 138 MMOL/L (135-145); TOTAL CARBON DIOXIDE 27.2 MMOL/L (24-32); eGFR > 90 ML/MIN
[2018-02-26 05:38] LABS: BASOPHILS % (AUTO) 0.3 % (0-1); EOSINOPHILS # (AUTO) 0.2 X10'3 (0-0.9); EOSINOPHILS % (AUTO) 1.6 % (0-6); HEMATOCRIT 31.9 % (42.0-52.0); HEMOGLOBIN 11.1 g/dl (14.0-17.9); LYMPHOCYTES # (AUTO) 2.2 X10'3 (1.1-4.8); LYMPHOCYTES % (AUTO) 18.7 % (21-51); MEAN CORPUSCULAR HEMOGLOBIN 30.5 PG (27.0-31.0); MEAN CORPUSCULAR HGB CONC 34.7 % (33.0-36.5); MEAN CORPUSCULAR VOLUME 87.8 FL (78-98); MEAN PLATELET VOLUME 8.1 FL (7.4-10.4); MONOCYTES # (AUTO) 1.5 X10'3 (0-0.9); MONOCYTES % (AUTO) 12.7 % (2-12); NEUTROPHILS # (AUTO) 7.8 X10'3 (1.8-7.7); NEUTROPHILS % (AUTO) 66.7 % (42-75); PLATELET COUNT 459 X10'3 (140-440); RED BLOOD COUNT 3.63 X10'6 (4.70-6.10); RED CELL DISTRIBUTION WIDTH 12.5 % (11.5-14.5); WHITE BLOOD COUNT 11.7 X10'3 (4.5-11.0)
[2018-02-26 05:40] LABS: ALANINE AMINOTRANSFERASE 19 U/L (12-78); ALBUMIN/GLOBULIN RATIO 0.4 (1.1-1.5); ALKALINE PHOSPHATASE 61 IU/L (46-116); ANION GAP 8 (8-16); ASPARTATE AMINO TRANSFERASE 17 U/L (10-37); BILIRUBIN,TOTAL 0.3 MG/DL (0.1-1.0); BLOOD UREA NITROGEN 7 MG/DL (7-18); BUN/CREATININE RATIO 8.9 (5.4-32.0); CALCIUM 8.2 MG/DL (8.5-10.1); CHLORIDE 105 MMOL/L (99-107); CREATININE 0.79 MG/DL (0.60-1.10); GLUCOSE 125 MG/DL (70-104); POTASSIUM 3.9 MMOL/L (3.5-5.1); SODIUM 139 MMOL/L (135-145); TOTAL CARBON DIOXIDE 26.1 MMOL/L (24-32); TOTAL PROTEIN 6.5 G/DL (6.4-8.2); eGFR > 90 ML/MIN
[2018-02-26] MEDS: nicotine 14mg patch - 24hr TD SCH (07:44)
[2018-02-26] MEDS: lactobacillus rhamnosus 10,000 MMU CELLS/CAPSULE PO SCH ×2 (07:44→20:16)
[2018-02-26] MEDS: CefTRIAXone 2gm/D5W 50ml 50 ML IV SCH (07:44)
[2018-02-26] MEDS: multivitamins, therapeutics tablet PO SCH (07:45)
[2018-02-26] MEDS: atorvastatin 20mg tablet PO SCH (07:45)
[2018-02-26] MEDS: clopidogrel 75mg tablet PO SCH (07:45)
[2018-02-26] MEDS: folic acid 1mg tablet PO SCH (07:45)
[2018-02-26] MEDS: thiamine 100mg tablet PO SCH (07:45)
[2018-02-26] MEDS: heparin, porcine 5000 units/ml vial SQ SCH ×2 (07:46→20:17)
[2018-02-26] MEDS: K and/or MAG REPLACEMENT MC SCH (08:00)
[2018-02-26] MEDS: metoprolol tartrate 25mg tablet PO SCH ×2 (08:48→20:16)
[2018-02-26] MEDS: aspirin 81mg tablet.DR PO SCH (08:48)
[2018-02-26 09:31] LABS: BASOPHILS # (AUTO) 0.1 X10'3 (0-0.2); BASOPHILS % (AUTO) 0.8 % (0-1); EOSINOPHILS # (AUTO) 0.1 X10'3 (0-0.9); EOSINOPHILS % (AUTO) 1.1 % (0-6); HEMATOCRIT 31.6 % (42.0-52.0); HEMOGLOBIN 10.8 g/dl (14.0-17.9); LYMPHOCYTES % (AUTO) 17.3 % (21-51); MEAN CORPUSCULAR HGB CONC 34.2 % (33.0-36.5); MEAN CORPUSCULAR VOLUME 87.7 FL (78-98); MONOCYTES # (AUTO) 1.5 X10'3 (0-0.9); MONOCYTES % (AUTO) 13.3 % (2-12); NEUTROPHILS # (AUTO) 7.7 X10'3 (1.8-7.7); NEUTROPHILS % (AUTO) 67.5 % (42-75); PLATELET COUNT 480 X10'3 (140-440); RED CELL DISTRIBUTION WIDTH 12.5 % (11.5-14.5); WHITE BLOOD COUNT 11.5 X10'3 (4.5-11.0)
[2018-02-26] MEDS: insulin Lispro (HumaLOG) vial - multi-dose SQ SCH ×2 (14:09→18:05)
[2018-02-26] MEDS: lisinopril 5mg tablet PO SCH (20:16)
[2018-02-26] MEDS: insulin glargine (Lantus) pen - multi-dose SQ SCH (21:57)
[2018-02-27 03:00] VITALS: BP 133/62
[2018-02-27] MEDS: VANCOMYCIN 750MG IV in NS 250 ML IV SCH ×3 (05:19→21:24)
[2018-02-27 06:00] VITALS: BP 139/77
[2018-02-27 06:58] LABS: BASOPHILS # (AUTO) 0.1 X10'3 (0-0.2); BASOPHILS % (AUTO) 0.5 % (0-1); EOSINOPHILS # (AUTO) 0.2 X10'3 (0-0.9); EOSINOPHILS % (AUTO) 1.6 % (0-6); HEMATOCRIT 30.1 % (42.0-52.0); HEMOGLOBIN 10.4 g/dl (14.0-17.9); LYMPHOCYTES # (AUTO) 1.9 X10'3 (1.1-4.8); LYMPHOCYTES % (AUTO) 17.6 % (21-51); MEAN CORPUSCULAR HEMOGLOBIN 29.8 PG (27.0-31.0); MEAN CORPUSCULAR HGB CONC 34.4 % (33.0-36.5); MEAN CORPUSCULAR VOLUME 86.7 FL (78-98); MEAN PLATELET VOLUME 7.9 FL (7.4-10.4); MONOCYTES # (AUTO) 1.6 X10'3 (0-0.9); MONOCYTES % (AUTO) 14.3 % (2-12); NEUTROPHILS # (AUTO) 7.2 X10'3 (1.8-7.7); PLATELET COUNT 449 X10'3 (140-440); RED BLOOD COUNT 3.47 X10'6 (4.70-6.10); RED CELL DISTRIBUTION WIDTH 12.7 % (11.5-14.5); WHITE BLOOD COUNT 10.9 X10'3 (4.5-11.0)
[2018-02-27 07:16] LABS: ALBUMIN 1.9 G/DL (3.4-5.0); ANION GAP 6 (8-16); BLOOD UREA NITROGEN 6 MG/DL (7-18); BUN/CREATININE RATIO 8.3 (5.4-32.0); CHLORIDE 105 MMOL/L (99-107); CREATININE 0.72 MG/DL (0.60-1.10); GLUCOSE 137 MG/DL (70-104); POTASSIUM 3.5 MMOL/L (3.5-5.1); SODIUM 139 MMOL/L (135-145); TOTAL CARBON DIOXIDE 28.4 MMOL/L (24-32); eGFR > 90 ML/MIN
[2018-02-27] MEDS: clopidogrel 75mg tablet PO SCH (07:32)
[2018-02-27] MEDS: metroNIDAZOLE 500mg tablet PO SCH ×3 (07:32→23:32)
[2018-02-27] MEDS: folic acid 1mg tablet PO SCH (07:32)
[2018-02-27] MEDS: nicotine 14mg patch - 24hr TD SCH (07:32)
[2018-02-27] MEDS: metoprolol tartrate 25mg tablet PO SCH ×2 (07:32→19:59)
[2018-02-27] MEDS: thiamine 100mg tablet PO SCH (07:32)
[2018-02-27] MEDS: atorvastatin 20mg tablet PO SCH (07:32)
[2018-02-27] MEDS: multivitamins, therapeutics tablet PO SCH (07:32)
[2018-02-27] MEDS: aspirin 81mg tablet.DR PO SCH (07:32)
[2018-02-27] MEDS: lactobacillus rhamnosus 10,000 MMU CELLS/CAPSULE PO SCH ×2 (07:32→19:59)
[2018-02-27] MEDS: oxyCODONE IR 5mg (immed. release) tablet PO PRN (07:34)
[2018-02-27] MEDS: heparin, porcine 5000 units/ml vial SQ SCH ×2 (07:34→19:59)
[2018-02-27] MEDS: CefTRIAXone 2gm/D5W 50ml 50 ML IV SCH (07:35)
[2018-02-27] MEDS: K and/or MAG REPLACEMENT MC SCH (08:00)
[2018-02-27] MEDS: insulin Lispro (HumaLOG) vial - multi-dose SQ SCH ×3 (09:35→19:07)
[2018-02-27 11:00] VITALS: BP 103/51
[2018-02-27 15:00] VITALS: BP 135/92
[2018-02-27 19:00] VITALS: BP 138/66
[2018-02-27] MEDS: lisinopril 5mg tablet PO SCH (21:24)
[2018-02-27] MEDS: insulin glargine (Lantus) pen - multi-dose SQ SCH (21:29)
[2018-02-27 23:00] VITALS: BP 137/67
[2018-02-28 03:00] VITALS: BP 145/68
[2018-02-28] MEDS: VANCOMYCIN 750MG IV in NS 250 ML IV SCH (04:37)
[2018-02-28 05:57] LABS: ALBUMIN 1.8 G/DL (3.4-5.0); ANION GAP 7 (8-16); BLOOD UREA NITROGEN 7 MG/DL (7-18); BUN/CREATININE RATIO 9.1 (5.4-32.0); CALCIUM 7.8 MG/DL (8.5-10.1); CHLORIDE 105 MMOL/L (99-107); CREATININE 0.77 MG/DL (0.60-1.10); GLUCOSE 124 MG/DL (70-104); POTASSIUM 3.3 MMOL/L (3.5-5.1); SODIUM 141 MMOL/L (135-145); TOTAL CARBON DIOXIDE 29.1 MMOL/L (24-32); eGFR > 90 ML/MIN
[2018-02-28 06:00] VITALS: BP 161/72
[2018-02-28] MEDS: nicotine 14mg patch - 24hr TD SCH (07:24)
[2018-02-28] MEDS: heparin, porcine 5000 units/ml vial SQ SCH ×2 (07:24→20:10)
[2018-02-28] MEDS: thiamine 100mg tablet PO SCH (07:25)
[2018-02-28] MEDS: metoprolol tartrate 25mg tablet PO SCH ×2 (07:25→20:09)
[2018-02-28] MEDS: metroNIDAZOLE 500mg tablet PO SCH (07:25)
[2018-02-28] MEDS: multivitamins, therapeutics tablet PO SCH (07:25)
[2018-02-28] MEDS: lactobacillus rhamnosus 10,000 MMU CELLS/CAPSULE PO SCH ×2 (07:25→20:09)
[2018-02-28] MEDS: clopidogrel 75mg tablet PO SCH (07:25)
[2018-02-28] MEDS: atorvastatin 20mg tablet PO SCH (07:25)
[2018-02-28] MEDS: folic acid 1mg tablet PO SCH (07:25)
[2018-02-28] MEDS: CefTRIAXone 2gm/D5W 50ml 50 ML IV SCH (07:28)
[2018-02-28] MEDS: K and/or MAG REPLACEMENT MC SCH (08:00)
[2018-02-28] MEDS ORDERED: potassium Cl 20 mEq SR tablet PO STA (08:22)
[2018-02-28] MEDS: aspirin 81mg tablet.DR PO SCH (08:48)
[2018-02-28] MEDS: insulin Lispro (HumaLOG) vial - multi-dose SQ SCH ×3 (10:29→18:55)
[2018-02-28 11:00] VITALS: BP 107/65
[2018-02-28 15:00] VITALS: BP 149/74
[2018-02-28 19:00] VITALS: BP 122/63
[2018-02-28] MEDS: lisinopril 5mg tablet PO SCH (20:09)
[2018-02-28] MEDS: insulin glargine (Lantus) pen - multi-dose SQ SCH (21:16)
[2018-02-28 23:00] VITALS: BP 143/74
[2018-03-01 03:00] VITALS: BP 141/76
[2018-03-01 06:00] VITALS: BP 121/70
[2018-03-01 07:08] LABS: BASOPHILS # (AUTO) 0.1 X10'3 (0-0.2); BASOPHILS % (AUTO) 0.9 % (0-1); EOSINOPHILS # (AUTO) 0.3 X10'3 (0-0.9); EOSINOPHILS % (AUTO) 3.1 % (0-6); HEMATOCRIT 29.6 % (42.0-52.0); HEMOGLOBIN 10.3 g/dl (14.0-17.9); LYMPHOCYTES # (AUTO) 2.3 X10'3 (1.1-4.8); LYMPHOCYTES % (AUTO) 23.2 % (21-51); MEAN CORPUSCULAR HEMOGLOBIN 30.1 PG (27.0-31.0); MEAN CORPUSCULAR HGB CONC 34.6 % (33.0-36.5); MEAN CORPUSCULAR VOLUME 87.1 FL (78-98); MEAN PLATELET VOLUME 7.6 FL (7.4-10.4); MONOCYTES # (AUTO) 1.2 X10'3 (0-0.9); MONOCYTES % (AUTO) 11.5 % (2-12); NEUTROPHILS # (AUTO) 6.1 X10'3 (1.8-7.7); NEUTROPHILS % (AUTO) 61.3 % (42-75); PLATELET COUNT 506 X10'3 (140-440); RED CELL DISTRIBUTION WIDTH 12.4 % (11.5-14.5)
[2018-03-01 07:24] LABS: ALANINE AMINOTRANSFERASE 14 U/L (12-78); ALBUMIN 1.9 G/DL (3.4-5.0); ALBUMIN/GLOBULIN RATIO 0.4 (1.1-1.5); ALKALINE PHOSPHATASE 53 IU/L (46-116); ANION GAP 7 (8-16); ASPARTATE AMINO TRANSFERASE 15 U/L (10-37); BILIRUBIN,TOTAL 0.2 MG/DL (0.1-1.0); BLOOD UREA NITROGEN 7 MG/DL (7-18); BUN/CREATININE RATIO 8.6 (5.4-32.0); CALCIUM 8.2 MG/DL (8.5-10.1); CHLORIDE 106 MMOL/L (99-107); CREATININE 0.81 MG/DL (0.60-1.10); GLUCOSE 125 MG/DL (70-104); POTASSIUM 3.8 MMOL/L (3.5-5.1); SODIUM 142 MMOL/L (135-145); TOTAL CARBON DIOXIDE 29.4 MMOL/L (24-32); TOTAL PROTEIN 6.6 G/DL (6.4-8.2); eGFR > 90 ML/MIN
[2018-03-01] MEDS: atorvastatin 20mg tablet PO SCH (07:43)
[2018-03-01] MEDS: aspirin 81mg tablet.DR PO SCH (07:43)
[2018-03-01] MEDS: clopidogrel 75mg tablet PO SCH (07:43)
[2018-03-01] MEDS: multivitamins, therapeutics tablet PO SCH (07:43)
[2018-03-01] MEDS: lactobacillus rhamnosus 10,000 MMU CELLS/CAPSULE PO SCH ×2 (07:43→20:48)
[2018-03-01] MEDS: metoprolol tartrate 25mg tablet PO SCH ×2 (07:43→20:48)
[2018-03-01] MEDS: folic acid 1mg tablet PO SCH (07:43)
[2018-03-01] MEDS: thiamine 100mg tablet PO SCH (07:43)
[2018-03-01] MEDS: heparin, porcine 5000 units/ml vial SQ SCH ×2 (07:44→20:00)
[2018-03-01] MEDS: nicotine 14mg patch - 24hr TD SCH (07:45)
[2018-03-01] MEDS: K and/or MAG REPLACEMENT MC SCH (08:00)
[2018-03-01 11:00] VITALS: BP 114/62
[2018-03-01] MEDS: insulin Lispro (HumaLOG) vial - multi-dose SQ SCH ×2 (11:10→13:25)
[2018-03-01 15:00] VITALS: BP 127/62
[2018-03-01 19:00] VITALS: BP 132/65
[2018-03-01] MEDS: lisinopril 5mg tablet PO SCH (20:48)
[2018-03-01] MEDS: insulin glargine (Lantus) pen - multi-dose SQ SCH (20:53)
[2018-03-01 23:00] VITALS: BP 148/77
[2018-03-02 03:00] VITALS: BP 120/67
[2018-03-02 06:00] VITALS: BP 131/64
[2018-03-02] MEDS: metoprolol tartrate 25mg tablet PO SCH ×2 (07:12→20:22)
[2018-03-02] MEDS: thiamine 100mg tablet PO SCH (07:13)
[2018-03-02] MEDS: folic acid 1mg tablet PO SCH (07:13)
[2018-03-02] MEDS: heparin, porcine 5000 units/ml vial SQ SCH ×2 (07:13→20:22)
[2018-03-02] MEDS: atorvastatin 20mg tablet PO SCH (07:13)
[2018-03-02] MEDS: multivitamins, therapeutics tablet PO SCH (07:13)
[2018-03-02] MEDS: lactobacillus rhamnosus 10,000 MMU CELLS/CAPSULE PO SCH ×2 (07:13→20:22)
[2018-03-02] MEDS: clopidogrel 75mg tablet PO SCH (07:13)
[2018-03-02] MEDS: nicotine 14mg patch - 24hr TD SCH (07:17)
[2018-03-02] MEDS: K and/or MAG REPLACEMENT MC SCH (08:00)
[2018-03-02] MEDS: aspirin 81mg tablet.DR PO SCH (09:28)
[2018-03-02] MEDS: insulin Lispro (HumaLOG) vial - multi-dose SQ SCH ×2 (09:32→13:12)
[2018-03-02 11:00] VITALS: BP 106/53
[2018-03-02 15:00] VITALS: BP 105/66
[2018-03-02 19:00] VITALS: BP 137/69
[2018-03-02] MEDS: insulin glargine (Lantus) pen - multi-dose SQ SCH (20:21)
[2018-03-02] MEDS: lisinopril 5mg tablet PO SCH (20:22)
[2018-03-02 23:00] VITALS: BP 149/78
[2018-03-03 03:00] VITALS: BP 134/67
[2018-03-03 06:00] VITALS: BP 95/53
[2018-03-03] MEDS: K and/or MAG REPLACEMENT MC SCH (08:00)
[2018-03-03] MEDS: folic acid 1mg tablet PO SCH (08:13)
[2018-03-03] MEDS: thiamine 100mg tablet PO SCH (08:13)
[2018-03-03] MEDS: multivitamins, therapeutics tablet PO SCH (08:13)
[2018-03-03] MEDS: lactobacillus rhamnosus 10,000 MMU CELLS/CAPSULE PO SCH ×2 (08:13→21:49)
[2018-03-03] MEDS: clopidogrel 75mg tablet PO SCH (08:13)
[2018-03-03] MEDS: metoprolol tartrate 25mg tablet PO SCH ×2 (08:13→08:52)
[2018-03-03] MEDS: aspirin 81mg tablet.DR PO SCH (08:13)
[2018-03-03] MEDS: nicotine 14mg patch - 24hr TD SCH (08:13)
[2018-03-03] MEDS: heparin, porcine 5000 units/ml vial SQ SCH ×2 (08:14→21:49)
[2018-03-03] MEDS: insulin Lispro (HumaLOG) vial - multi-dose SQ SCH ×3 (08:57→18:09)
[2018-03-03] MEDS: atorvastatin 20mg tablet PO SCH (08:59)
[2018-03-03 11:00] VITALS: BP 107/54
[2018-03-03 18:00] VITALS: BP 139/75
[2018-03-03] MEDS: lisinopril 5mg tablet PO SCH (21:49)
[2018-03-03] MEDS: insulin glargine (Lantus) pen - multi-dose SQ SCH (21:51)
[2018-03-03 22:00] VITALS: BP 154/78
[2018-03-04] VITALS (7 sets, daily range): BP systolic 116–136; BP diastolic 59–71
[2018-03-04] MEDS: K and/or MAG REPLACEMENT MC SCH (07:29)
[2018-03-04] MEDS: multivitamins, therapeutics tablet PO SCH (07:33)
[2018-03-04] MEDS: aspirin 81mg tablet.DR PO SCH (07:33)
[2018-03-04] MEDS: atorvastatin 20mg tablet PO SCH (07:33)
[2018-03-04] MEDS: metoprolol tartrate 25mg tablet PO SCH ×2 (07:33→20:44)
[2018-03-04] MEDS: folic acid 1mg tablet PO SCH (07:34)
[2018-03-04] MEDS: thiamine 100mg tablet PO SCH (07:34)
[2018-03-04] MEDS: clopidogrel 75mg tablet PO SCH (07:34)
[2018-03-04] MEDS: lactobacillus rhamnosus 10,000 MMU CELLS/CAPSULE PO SCH ×2 (07:34→20:45)
[2018-03-04] MEDS: heparin, porcine 5000 units/ml vial SQ SCH ×2 (07:35→20:46)
[2018-03-04] MEDS: nicotine 14mg patch - 24hr TD SCH (07:36)
[2018-03-04] MEDS: insulin Lispro (HumaLOG) vial - multi-dose SQ SCH ×3 (08:45→18:06)
[2018-03-04] MEDS ORDERED: ASPI-1071 PO (18:54)
[2018-03-04] MEDS: lisinopril 5mg tablet PO SCH (20:44)
[2018-03-04] MEDS: insulin glargine (Lantus) pen - multi-dose SQ SCH (20:59)
[2018-03-05 02:50] VITALS: BP 132/67
[2018-03-05 07:00] VITALS: BP 137/64
[2018-03-05] MEDS: K and/or MAG REPLACEMENT MC SCH (08:00)
[2018-03-05] MEDS: atorvastatin 20mg tablet PO SCH (08:10)
[2018-03-05] MEDS: metoprolol tartrate 25mg tablet PO SCH (08:11)
[2018-03-05] MEDS: lactobacillus rhamnosus 10,000 MMU CELLS/CAPSULE PO SCH (08:11)
[2018-03-05] MEDS: multivitamins, therapeutics tablet PO SCH (08:11)
[2018-03-05] MEDS: folic acid 1mg tablet PO SCH (08:12)
[2018-03-05] MEDS: aspirin 81mg tablet.DR PO SCH (08:12)
[2018-03-05] MEDS: heparin, porcine 5000 units/ml vial SQ SCH (08:14)
[2018-03-05] MEDS: nicotine 14mg patch - 24hr TD SCH (08:15)
[2018-03-05] MEDS: clopidogrel 75mg tablet PO SCH (08:15)
[2018-03-05] MEDS: thiamine 100mg tablet PO SCH (08:17)
[2018-03-05] MEDS ORDERED: ATOR20TA66 PO (08:55)
[2018-03-05] MEDS ORDERED: CLOP75TA35 PO (08:55)
[2018-03-05] MEDS ORDERED: MULT-1179 PO (08:55)
[2018-03-05] MEDS ORDERED: THI100T PO (08:55)
[2018-03-05] MEDS ORDERED: NICO-631 TD (08:55)
[2018-03-05] MEDS ORDERED: FOLI1TAB16 PO (08:55)
[2018-03-05] MEDS ORDERED: LISI-642 PO (08:55)
[2018-03-05] MEDS ORDERED: METO25TA6 PO (08:55)
[2018-03-05] MEDS: insulin Lispro (HumaLOG) vial - multi-dose SQ SCH (09:11)
== END 2018-03-05 12:57 | disposition home or self-care (01) | DRG 305 ==
LOC: ER 08:15 → ED HOLD 10:55 → ORTHO 4S 13:00 → PACU 02-25 10:47 → ICU 2S 02-25 14:55 → PCU 3S 02-26 15:00 → SUR 3N 03-05 02:00
PROVIDERS: ADMIT Internal Medicine; ATTEND Internal Medicine
PROC: B42H1ZZ Computerized Tomography (CT Scan) of Bilateral Lower Extremity Arteries using Low Osmolar Contrast (ICD-10-PCS; 2018-02-19)
PROC: BW211ZZ Computerized Tomography (CT Scan) of Abdomen and Pelvis using Low Osmolar Contrast (ICD-10-PCS; 2018-02-19)
PROC: 0Y6M0ZB Detachment at Right Foot, Partial 2nd Ray, Open Approach (ICD-10-PCS; 2018-02-20)
PROC: 0Y6M0ZC Detachment at Right Foot, Partial 3rd Ray, Open Approach (ICD-10-PCS; 2018-02-20)
PROC: 0Y6M0ZD Detachment at Right Foot, Partial 4th Ray, Open Approach (ICD-10-PCS; 2018-02-20)
PROC: 0Y6M0ZF Detachment at Right Foot, Partial 5th Ray, Open Approach (ICD-10-PCS; 2018-02-20)
PROC: 0Y6M0Z9 Detachment at Right Foot, Partial 1st Ray, Open Approach (ICD-10-PCS; principal; 2018-02-20 10:14)
PROC: [UNRECOGNIZED PROCEDURE] (2018-02-23)
PROC: B3151ZZ Fluoroscopy of Bilateral Common Carotid Arteries using Low Osmolar Contrast (ICD-10-PCS; 2018-02-24)
PROC: B3251ZZ Computerized Tomography (CT Scan) of Bilateral Common Carotid Arteries using Low Osmolar Contrast (ICD-10-PCS; 2018-02-24)
PROC: B32G1ZZ Computerized Tomography (CT Scan) of Bilateral Vertebral Arteries using Low Osmolar Contrast (ICD-10-PCS; 2018-02-24)
PROC: B3201ZZ Computerized Tomography (CT Scan) of Thoracic Aorta using Low Osmolar Contrast (ICD-10-PCS; 2018-02-24)
PROC: B3281ZZ Computerized Tomography (CT Scan) of Bilateral Internal Carotid Arteries using Low Osmolar Contrast (ICD-10-PCS; 2018-02-24)
PROC: 041K09L Bypass Right Femoral Artery to Popliteal Artery with Autologous Venous Tissue, Open Approach (ICD-10-PCS; 2018-02-25)
PROC: 06BP0ZZ Excision of Right Saphenous Vein, Open Approach (ICD-10-PCS; 2018-02-25)
PROC: 04CK0ZZ Extirpation of Matter from Right Femoral Artery, Open Approach (ICD-10-PCS; 2018-02-25)
DX: E11.621 Type 2 diabetes mellitus with foot ulcer (principal); E43 Unspecified severe protein-calorie malnutrition; E11.52 Type 2 diabetes mellitus with diabetic peripheral angiopathy with gangrene; E11.69 Type 2 diabetes mellitus with other specified complication; I70.211 Atherosclerosis of native arteries of extremities with intermittent claudication, right leg; L03.115 Cellulitis of right lower limb; E87.1 Hypo-osmolality and hyponatremia; I65.23 Occlusion and stenosis of bilateral carotid arteries; F10.10 Alcohol abuse, uncomplicated; F17.210 Nicotine dependence, cigarettes, uncomplicated; L97.519 Non-pressure chronic ulcer of other part of right foot with unspecified severity; Z60.2 Problems related to living alone; I35.0 Nonrheumatic aortic (valve) stenosis; I10 Essential (primary) hypertension; M86.8X7 Other osteomyelitis, ankle and foot; L02.611 Cutaneous abscess of right foot; Z56.0 Unemployment, unspecified; Z98.1 Arthrodesis status; Z88.0 Allergy status to penicillin; Z79.02 Long term (current) use of antithrombotics/antiplatelets; Z79.899 Other long term (current) drug therapy; Z68.23 Body mass index [BMI] 23.0-23.9, adult; Z71.6 Tobacco abuse counseling; Z71.41 Alcohol abuse counseling and surveillance of alcoholic
CPT/HCPCS: 36223; 36245; 36415; 37221; 70498; 73630; 73706; 75716; 76937; 78452; 80048; 80053; 80061; 80202; 82948; 83036; 83605; 83735; 84100; 84145; 84550; 85025; 85610; 85651; 86140; 86885; 86900; 86901; 87040; 87070; 87075; 87077; 87186; 93005; 93017; 93306; 93880; 93922; 93926; 93970; 96374; 97110; 97116; 97162; 97530; 99152; 99153; 99285; A4620; A6212; A6213; A6219; A6222; A6223; A6258; A6446; A6449; A6454; A7000; A9270; A9500; C1725; C1758; C1768; C1769; C1876; C1894; J0360; J0461; J0696; J1335; J1644; J1815; J1956; J2001; J2250; J2274; J3010; J3370; J3411; J3480; J3490; J7030; J7060; J7120; Q9967

== ENCOUNTER 2018-03-08 09:00 | Outpatient (CLI) | payer MEDICAID, OTHER ==
[~2018-03-08 09:00] MED LIST changes: +ASPI-1071 PO; +ATOR20TA66 PO; +CEPH-572 PO; -CEPH500C5 PO; +CLOP75TA35 PO; +FOLI1TAB16 PO; +LISI-642 PO; +METO25TA6 PO; +MULT-1179 PO; +NICO-631 TD; -NO HOME MEDS; +THI100T PO
[2018-03-08] MEDS ORDERED: mupirocin 2% ointment 22GM ONE (10:37)
== END 2018-03-08 10:59 | disposition home or self-care (01) ==
LOC: WOUND CARE 09:00 → EDSTATUS 09:00 → WOUND CARE 10:59
PROVIDERS: ATTEND Surgery
DX: T87.89 Other complications of amputation stump (principal); E11.621 Type 2 diabetes mellitus with foot ulcer; L97.512 Non-pressure chronic ulcer of other part of right foot with fat layer exposed; E11.40 Type 2 diabetes mellitus with diabetic neuropathy, unspecified; E11.65 Type 2 diabetes mellitus with hyperglycemia; E11.69 Type 2 diabetes mellitus with other specified complication; M86.8X7 Other osteomyelitis, ankle and foot; E11.52 Type 2 diabetes mellitus with diabetic peripheral angiopathy with gangrene; I87.2 Venous insufficiency (chronic) (peripheral); E43 Unspecified severe protein-calorie malnutrition; I10 Essential (primary) hypertension; F10.10 Alcohol abuse, uncomplicated; F17.210 Nicotine dependence, cigarettes, uncomplicated; Z71.41 Alcohol abuse counseling and surveillance of alcoholic; Z68.23 Body mass index [BMI] 23.0-23.9, adult; Z79.02 Long term (current) use of antithrombotics/antiplatelets; Z79.899 Other long term (current) drug therapy; Z71.6 Tobacco abuse counseling; Y83.5 Amputation of limb(s) as the cause of abnormal reaction of the patient, or of later complication, without mention of misadventure at the time of the procedure
CPT/HCPCS: 36416; 82948; 99215; A6223; A6446; L3260

== ENCOUNTER 2018-03-14 08:15 | Outpatient (CLI) | payer MEDICAID, OTHER ==
[~2018-03-14 08:15] MED LIST changes: -BACDS PO; -CEPH-572 PO; -NICO-631 TD
[2018-03-14] MEDS ORDERED: LIDOcaine/PRILOcaine 5gm cream TP ONE (09:48)
== END 2018-03-14 10:23 | disposition home or self-care (01) ==
LOC: WOUND CARE 08:15
PROVIDERS: ATTEND Surgery
DX: T87.89 Other complications of amputation stump (principal); E11.621 Type 2 diabetes mellitus with foot ulcer; L97.512 Non-pressure chronic ulcer of other part of right foot with fat layer exposed; E11.622 Type 2 diabetes mellitus with other skin ulcer; L97.211 Non-pressure chronic ulcer of right calf limited to breakdown of skin; L97.111 Non-pressure chronic ulcer of right thigh limited to breakdown of skin; E11.40 Type 2 diabetes mellitus with diabetic neuropathy, unspecified; E11.65 Type 2 diabetes mellitus with hyperglycemia; E11.69 Type 2 diabetes mellitus with other specified complication; M86.8X7 Other osteomyelitis, ankle and foot; E11.52 Type 2 diabetes mellitus with diabetic peripheral angiopathy with gangrene; I87.2 Venous insufficiency (chronic) (peripheral); E43 Unspecified severe protein-calorie malnutrition; I10 Essential (primary) hypertension; F10.10 Alcohol abuse, uncomplicated; F17.210 Nicotine dependence, cigarettes, uncomplicated; Z71.41 Alcohol abuse counseling and surveillance of alcoholic; Z68.23 Body mass index [BMI] 23.0-23.9, adult; Z79.02 Long term (current) use of antithrombotics/antiplatelets; Z79.899 Other long term (current) drug therapy; Z71.6 Tobacco abuse counseling; Y83.5 Amputation of limb(s) as the cause of abnormal reaction of the patient, or of later complication, without mention of misadventure at the time of the procedure
CPT/HCPCS: 36416; 82948; 99215; A6213; A6223

== ENCOUNTER 2018-03-21 08:15 | Outpatient (CLI) | payer MEDICAID, OTHER ==
[2018-03-21] MEDS ORDERED: LIDOcaine/PRILOcaine 5gm cream TP ONE (09:54)
[2018-03-21] MEDS ORDERED: mupirocin 2% ointment 22GM ONE (10:14)
== END 2018-03-21 10:28 | disposition home or self-care (01) ==
LOC: WOUND CARE 08:15
PROVIDERS: ATTEND Surgery
DX: T87.89 Other complications of amputation stump (principal); E11.621 Type 2 diabetes mellitus with foot ulcer; L97.512 Non-pressure chronic ulcer of other part of right foot with fat layer exposed; E11.622 Type 2 diabetes mellitus with other skin ulcer; L97.211 Non-pressure chronic ulcer of right calf limited to breakdown of skin; L97.111 Non-pressure chronic ulcer of right thigh limited to breakdown of skin; E11.40 Type 2 diabetes mellitus with diabetic neuropathy, unspecified; E11.65 Type 2 diabetes mellitus with hyperglycemia; E11.69 Type 2 diabetes mellitus with other specified complication; M86.8X7 Other osteomyelitis, ankle and foot; E11.52 Type 2 diabetes mellitus with diabetic peripheral angiopathy with gangrene; I87.2 Venous insufficiency (chronic) (peripheral); E43 Unspecified severe protein-calorie malnutrition; I10 Essential (primary) hypertension; F10.10 Alcohol abuse, uncomplicated; F17.210 Nicotine dependence, cigarettes, uncomplicated; Z71.41 Alcohol abuse counseling and surveillance of alcoholic; Z68.23 Body mass index [BMI] 23.0-23.9, adult; Z79.02 Long term (current) use of antithrombotics/antiplatelets; Z79.899 Other long term (current) drug therapy; Z71.6 Tobacco abuse counseling; Y83.5 Amputation of limb(s) as the cause of abnormal reaction of the patient, or of later complication, without mention of misadventure at the time of the procedure
CPT/HCPCS: 36416; 82948; 99215; A6222; A6446

== ENCOUNTER 2018-03-28 08:06 | Day surgery (SDC) | payer MEDICAID, OTHER ==
[2018-03-28] MEDS ORDERED: LIDOcaine/PRILOcaine 5gm cream TP ONE (09:48)
[2018-03-29] MEDS ORDERED: METF500T PO (10:39)
[2018-03-29] MEDS ORDERED: METO25TA6 PO (10:39)
[2018-03-29] MEDS ORDERED: CLOP75TA15 PO (10:39)
[2018-03-29] MEDS ORDERED: ATOR20TA PO (10:39)
[2018-03-29] MEDS ORDERED: LISI-604 PO (10:39)
== END 2018-03-28 10:50 | disposition home or self-care (01) ==
LOC: WOUND CARE 08:06
PROVIDERS: ATTEND Surgery
DX: T87.89 Other complications of amputation stump (principal); E11.621 Type 2 diabetes mellitus with foot ulcer; L97.512 Non-pressure chronic ulcer of other part of right foot with fat layer exposed; E11.622 Type 2 diabetes mellitus with other skin ulcer; L97.211 Non-pressure chronic ulcer of right calf limited to breakdown of skin; L97.111 Non-pressure chronic ulcer of right thigh limited to breakdown of skin; E11.40 Type 2 diabetes mellitus with diabetic neuropathy, unspecified; E11.65 Type 2 diabetes mellitus with hyperglycemia; E11.69 Type 2 diabetes mellitus with other specified complication; M86.8X7 Other osteomyelitis, ankle and foot; E11.52 Type 2 diabetes mellitus with diabetic peripheral angiopathy with gangrene; I87.2 Venous insufficiency (chronic) (peripheral); E43 Unspecified severe protein-calorie malnutrition; I10 Essential (primary) hypertension; F10.10 Alcohol abuse, uncomplicated; F17.210 Nicotine dependence, cigarettes, uncomplicated; Z71.41 Alcohol abuse counseling and surveillance of alcoholic; Z68.23 Body mass index [BMI] 23.0-23.9, adult; Z79.02 Long term (current) use of antithrombotics/antiplatelets; Z79.899 Other long term (current) drug therapy; Z71.6 Tobacco abuse counseling; Y83.5 Amputation of limb(s) as the cause of abnormal reaction of the patient, or of later complication, without mention of misadventure at the time of the procedure
CPT/HCPCS: 36416; 82948; 97597; A6021; A6206; A6209

== ENCOUNTER 2018-03-31 08:35 | Day surgery (SDC) | payer MEDICAID ==
[~2018-03-31 08:35] MED LIST changes: +ATOR20TA PO; +CLOP75TA15 PO; +LISI-604 PO
[2018-03-31] MEDS ORDERED: LIDOcaine/PRILOcaine 5gm cream TP ONE (09:34)
== END 2018-03-31 10:46 | disposition home or self-care (01) ==
LOC: WOUND CARE 08:35
PROVIDERS: ATTEND Surgery
DX: T87.89 Other complications of amputation stump (principal); E11.621 Type 2 diabetes mellitus with foot ulcer; L97.512 Non-pressure chronic ulcer of other part of right foot with fat layer exposed; E11.40 Type 2 diabetes mellitus with diabetic neuropathy, unspecified; E11.65 Type 2 diabetes mellitus with hyperglycemia; E11.69 Type 2 diabetes mellitus with other specified complication; M86.8X7 Other osteomyelitis, ankle and foot; E11.52 Type 2 diabetes mellitus with diabetic peripheral angiopathy with gangrene; I87.2 Venous insufficiency (chronic) (peripheral); E43 Unspecified severe protein-calorie malnutrition; I10 Essential (primary) hypertension; F10.10 Alcohol abuse, uncomplicated; F17.210 Nicotine dependence, cigarettes, uncomplicated; Z71.41 Alcohol abuse counseling and surveillance of alcoholic; Z68.23 Body mass index [BMI] 23.0-23.9, adult; Z79.02 Long term (current) use of antithrombotics/antiplatelets; Z79.899 Other long term (current) drug therapy; Z71.6 Tobacco abuse counseling; Y83.5 Amputation of limb(s) as the cause of abnormal reaction of the patient, or of later complication, without mention of misadventure at the time of the procedure
CPT/HCPCS: 11042; 36416; 82948; A6021; A6209; A6222

== ENCOUNTER 2018-04-07 08:25 | Outpatient (CLI) | payer MEDICAID | END 2018-04-07 09:08 | disposition home or self-care (01) | LOC: WOUND CARE 08:25 | PROVIDERS: ATTEND Surgery | DX: T87.89 Other complications of amputation stump (principal); E11.621 Type 2 diabetes mellitus with foot ulcer; L97.512 Non-pressure chronic ulcer of other part of right foot with fat layer exposed; E11.40 Type 2 diabetes mellitus with diabetic neuropathy, unspecified; E11.65 Type 2 diabetes mellitus with hyperglycemia; E11.69 Type 2 diabetes mellitus with other specified complication; M86.8X7 Other osteomyelitis, ankle and foot; E11.52 Type 2 diabetes mellitus with diabetic peripheral angiopathy with gangrene; I87.2 Venous insufficiency (chronic) (peripheral); E43 Unspecified severe protein-calorie malnutrition; I10 Essential (primary) hypertension; F10.10 Alcohol abuse, uncomplicated; F17.210 Nicotine dependence, cigarettes, uncomplicated; Z71.41 Alcohol abuse counseling and surveillance of alcoholic; Z68.23 Body mass index [BMI] 23.0-23.9, adult; Z79.02 Long term (current) use of antithrombotics/antiplatelets; Z79.899 Other long term (current) drug therapy; Z71.6 Tobacco abuse counseling; Y83.5 Amputation of limb(s) as the cause of abnormal reaction of the patient, or of later complication, without mention of misadventure at the time of the procedure | CPT/HCPCS: 36416; 82948; 99211; A6209; A6222; A6021; A6446 ==

== ENCOUNTER 2018-04-11 08:08 | Day surgery (SDC) | payer MEDICAID ==
[2018-04-11] MEDS ORDERED: LIDOcaine/PRILOcaine 5gm cream TP ONE (09:49)
== END 2018-04-11 10:38 | disposition home or self-care (01) ==
LOC: WOUND CARE 08:08
PROVIDERS: ATTEND Surgery
DX: T87.89 Other complications of amputation stump (principal); E11.621 Type 2 diabetes mellitus with foot ulcer; L97.512 Non-pressure chronic ulcer of other part of right foot with fat layer exposed; E11.40 Type 2 diabetes mellitus with diabetic neuropathy, unspecified; E11.65 Type 2 diabetes mellitus with hyperglycemia; E11.69 Type 2 diabetes mellitus with other specified complication; M86.8X7 Other osteomyelitis, ankle and foot; E11.52 Type 2 diabetes mellitus with diabetic peripheral angiopathy with gangrene; I87.2 Venous insufficiency (chronic) (peripheral); E43 Unspecified severe protein-calorie malnutrition; I10 Essential (primary) hypertension; F10.10 Alcohol abuse, uncomplicated; F17.210 Nicotine dependence, cigarettes, uncomplicated; Z71.41 Alcohol abuse counseling and surveillance of alcoholic; Z68.23 Body mass index [BMI] 23.0-23.9, adult; Z79.02 Long term (current) use of antithrombotics/antiplatelets; Z79.899 Other long term (current) drug therapy; Z71.6 Tobacco abuse counseling; Y83.5 Amputation of limb(s) as the cause of abnormal reaction of the patient, or of later complication, without mention of misadventure at the time of the procedure
CPT/HCPCS: 11042; 36416; 82948; A6209; A6222; A6021; A6446

== ENCOUNTER 2018-04-19 08:00 | Day surgery (SDC) | payer MEDICAID ==
[2018-04-19] MEDS ORDERED: LIDOcaine/PRILOcaine 5gm cream TP ONE (09:39)
== END 2018-04-19 11:37 | disposition home or self-care (01) ==
LOC: WOUND CARE 08:00
PROVIDERS: ATTEND Surgery
DX: T87.89 Other complications of amputation stump (principal); E11.621 Type 2 diabetes mellitus with foot ulcer; L97.512 Non-pressure chronic ulcer of other part of right foot with fat layer exposed; E11.40 Type 2 diabetes mellitus with diabetic neuropathy, unspecified; E11.65 Type 2 diabetes mellitus with hyperglycemia; E11.69 Type 2 diabetes mellitus with other specified complication; M86.8X7 Other osteomyelitis, ankle and foot; E11.52 Type 2 diabetes mellitus with diabetic peripheral angiopathy with gangrene; I87.2 Venous insufficiency (chronic) (peripheral); E43 Unspecified severe protein-calorie malnutrition; I10 Essential (primary) hypertension; F10.10 Alcohol abuse, uncomplicated; F17.210 Nicotine dependence, cigarettes, uncomplicated; Z71.41 Alcohol abuse counseling and surveillance of alcoholic; Z68.23 Body mass index [BMI] 23.0-23.9, adult; Z79.02 Long term (current) use of antithrombotics/antiplatelets; Z79.899 Other long term (current) drug therapy; Z71.6 Tobacco abuse counseling; Y83.5 Amputation of limb(s) as the cause of abnormal reaction of the patient, or of later complication, without mention of misadventure at the time of the procedure
CPT/HCPCS: 11042; 36416; 82948; 97605; A6222

== ENCOUNTER 2018-04-22 08:20 | Day surgery (SDC) | payer MEDICAID | END 2018-04-22 11:02 | disposition home or self-care (01) | LOC: WOUND CARE 08:20 | PROVIDERS: ATTEND Surgery | DX: T87.89 Other complications of amputation stump (principal); E11.621 Type 2 diabetes mellitus with foot ulcer; L97.512 Non-pressure chronic ulcer of other part of right foot with fat layer exposed; E11.40 Type 2 diabetes mellitus with diabetic neuropathy, unspecified; E11.65 Type 2 diabetes mellitus with hyperglycemia; E11.69 Type 2 diabetes mellitus with other specified complication; M86.8X7 Other osteomyelitis, ankle and foot; E11.52 Type 2 diabetes mellitus with diabetic peripheral angiopathy with gangrene; I87.2 Venous insufficiency (chronic) (peripheral); E43 Unspecified severe protein-calorie malnutrition; I10 Essential (primary) hypertension; F10.10 Alcohol abuse, uncomplicated; F17.210 Nicotine dependence, cigarettes, uncomplicated; Z71.41 Alcohol abuse counseling and surveillance of alcoholic; Z68.23 Body mass index [BMI] 23.0-23.9, adult; Z79.02 Long term (current) use of antithrombotics/antiplatelets; Z79.899 Other long term (current) drug therapy; Z71.6 Tobacco abuse counseling; Y83.5 Amputation of limb(s) as the cause of abnormal reaction of the patient, or of later complication, without mention of misadventure at the time of the procedure | CPT/HCPCS: 11042; 36416; 82948; A6266; A6021; A6206; A6213; A6446 ==

== ENCOUNTER 2018-04-25 08:25 | Day surgery (SDC) | payer MEDICAID ==
[2018-04-25] MEDS ORDERED: LIDOcaine/PRILOcaine 5gm cream TP ONE (09:39)
== END 2018-04-25 11:27 | disposition home or self-care (01) ==
LOC: WOUND CARE 08:25
PROVIDERS: ATTEND Surgery
DX: T87.89 Other complications of amputation stump (principal); E11.621 Type 2 diabetes mellitus with foot ulcer; L97.512 Non-pressure chronic ulcer of other part of right foot with fat layer exposed; E11.40 Type 2 diabetes mellitus with diabetic neuropathy, unspecified; E11.65 Type 2 diabetes mellitus with hyperglycemia; E11.69 Type 2 diabetes mellitus with other specified complication; M86.8X7 Other osteomyelitis, ankle and foot; E11.52 Type 2 diabetes mellitus with diabetic peripheral angiopathy with gangrene; I87.2 Venous insufficiency (chronic) (peripheral); E43 Unspecified severe protein-calorie malnutrition; I10 Essential (primary) hypertension; F10.10 Alcohol abuse, uncomplicated; F17.210 Nicotine dependence, cigarettes, uncomplicated; Z71.41 Alcohol abuse counseling and surveillance of alcoholic; Z68.23 Body mass index [BMI] 23.0-23.9, adult; Z79.02 Long term (current) use of antithrombotics/antiplatelets; Z79.899 Other long term (current) drug therapy; Z71.6 Tobacco abuse counseling; Y83.5 Amputation of limb(s) as the cause of abnormal reaction of the patient, or of later complication, without mention of misadventure at the time of the procedure
CPT/HCPCS: 36416; 82948; 97605; A6206

== ENCOUNTER 2018-04-27 08:07 | Day surgery (SDC) | payer MEDICAID | END 2018-04-27 10:39 | disposition home or self-care (01) | LOC: WOUND CARE 08:07 | PROVIDERS: ATTEND Surgery | DX: T87.89 Other complications of amputation stump (principal); E11.621 Type 2 diabetes mellitus with foot ulcer; L97.512 Non-pressure chronic ulcer of other part of right foot with fat layer exposed; E11.40 Type 2 diabetes mellitus with diabetic neuropathy, unspecified; E11.65 Type 2 diabetes mellitus with hyperglycemia; E11.69 Type 2 diabetes mellitus with other specified complication; M86.8X7 Other osteomyelitis, ankle and foot; E11.52 Type 2 diabetes mellitus with diabetic peripheral angiopathy with gangrene; I87.2 Venous insufficiency (chronic) (peripheral); E43 Unspecified severe protein-calorie malnutrition; I10 Essential (primary) hypertension; F10.10 Alcohol abuse, uncomplicated; F17.210 Nicotine dependence, cigarettes, uncomplicated; Z71.41 Alcohol abuse counseling and surveillance of alcoholic; Z68.23 Body mass index [BMI] 23.0-23.9, adult; Z79.02 Long term (current) use of antithrombotics/antiplatelets; Z79.899 Other long term (current) drug therapy; Z71.6 Tobacco abuse counseling; Y83.5 Amputation of limb(s) as the cause of abnormal reaction of the patient, or of later complication, without mention of misadventure at the time of the procedure | CPT/HCPCS: 36416; 82948; 97605 ==

== ENCOUNTER 2018-04-29 22:56 | Inpatient (IN) | payer MEDICAID ==
[~2018-04-29] VITALS: Ht 165.1 cm; Wt 69.5 kg
[2018-04-30] MEDS ORDERED: acetaminophen 325mg tablet PO ONE (00:45)
[2018-04-30 01:05] LABS: CLARITY,URINE CLEAR (Clear); COLOR,URINE YELLOW (Yellow); GLUCOSE, URINE NEGATIVE (Neg); KETONES,URINE NEGATIVE (Neg); LEUKOCYTE ESTERASE ,URINE NEGATIVE (Neg); NITRITES, URINE NEGATIVE (Neg); OCCULT BLOOD,URINE TRACE-INTACT (Neg); PH,URINE 5.5 (4.8-8.0); PROTEIN,URINE NEGATIVE (Neg); UROBILINOGEN,URINE 0.2 E.U/dL (0.2-1.0)
[2018-04-30 01:10] LABS: UA COLLECTION TYPE CLN CATCH MIDSTREAM
[2018-04-30 01:13] LABS: BACTERIA,URINE NONE SEEN /HPF (Neg); RBC,URINE 0-2 /HPF (0-2); WBC,URINE 0-4 /HPF (0-4)
[2018-04-30 01:14] LABS: MUCUS STRANDS NONE SEEN /LPF (Neg); SQUAMOUS EPITHELIAL CELL,UR FEW /LPF (FEW)
[2018-04-30 01:50] LABS: ALANINE AMINOTRANSFERASE 25 U/L (12-78); ALBUMIN 3.9 G/DL (3.4-5.0); ALBUMIN/GLOBULIN RATIO 0.9 (1.1-1.5); ALKALINE PHOSPHATASE 90 IU/L (46-116); ANION GAP 10 (8-16); ASPARTATE AMINO TRANSFERASE 18 U/L (10-37); BILIRUBIN,TOTAL 0.5 MG/DL (0.1-1.0); BLOOD UREA NITROGEN 20 MG/DL (7-18); BUN/CREATININE RATIO 20.2 (5.4-32.0); CALCIUM 9.3 MG/DL (8.5-10.1); CHLORIDE 98 MMOL/L (99-107); CREATININE 0.99 MG/DL (0.60-1.10); GLUCOSE 183 MG/DL (70-104); POTASSIUM 3.9 MMOL/L (3.5-5.1); SODIUM 135 MMOL/L (135-145); TOTAL CARBON DIOXIDE 27.2 MMOL/L (24-32); TOTAL PROTEIN 8.3 G/DL (6.4-8.2); eGFR 77 ML/MIN
[2018-04-30 01:51] LABS: INR 1.1 INR; PARTIAL THROMBOPLASTIN TIME 27 SECONDS (22-32); PROTHROMBIN TIME 10.8 SECONDS (9.0-12.0)
[2018-04-30 01:57] LABS: BASOPHILS % (AUTO) 0.2 % (0-1); EOSINOPHILS # (AUTO) 0.1 X10'3 (0-0.9); EOSINOPHILS % (AUTO) 0.8 % (0-6); HEMATOCRIT 34.3 % (42.0-52.0); HEMOGLOBIN 11.6 g/dl (14.0-17.9); LYMPHOCYTES # (AUTO) 1.4 X10'3 (1.1-4.8); LYMPHOCYTES % (AUTO) 8.2 % (21-51); MEAN CORPUSCULAR HEMOGLOBIN 29.2 PG (27.0-31.0); MEAN CORPUSCULAR HGB CONC 33.7 % (33.0-36.5); MEAN CORPUSCULAR VOLUME 86.8 FL (78-98); MEAN PLATELET VOLUME 9.5 FL (7.4-10.4); MONOCYTES # (AUTO) 1.2 X10'3 (0-0.9); MONOCYTES % (AUTO) 7.2 % (2-12); NEUTROPHILS % (AUTO) 83.6 % (42-75); PLATELET COUNT 203 X10'3 (140-440); RED BLOOD COUNT 3.95 X10'6 (4.70-6.10); RED CELL DISTRIBUTION WIDTH 12.5 % (11.5-14.5); WHITE BLOOD COUNT 16.8 X10'3 (4.5-11.0)
[2018-04-30] MEDS ORDERED: vancomycin/NS 1 GM ADD-VANTAGE 250 ML IV ONE (02:45)
[2018-04-30] MEDS ORDERED: diphenhydrAMINE 25mg capsule PO PRN (03:00)
[2018-04-30] MEDS ORDERED: morphine 2 MG/ML inj. syringe IV PRN (03:00)
[2018-04-30] MEDS ORDERED: magnesium hydroxide 30ml (MOM) UD suspension PO PRN (03:00)
[2018-04-30] MEDS ORDERED: acetaminophen 325mg tablet PO PRN ×2 (03:00)
[2018-04-30] MEDS ORDERED: metoclopramide 5 mg/ml inj IV PRN (03:00)
[2018-04-30] MEDS ORDERED: diphenhydrAMINE 50 mg/ml inj IV PRN (03:00)
[2018-04-30] MEDS ORDERED: acetaminophen 650mg rectal suppository RC PRN (03:00)
[2018-04-30] MEDS ORDERED: bisacodyl 10mg suppository rectal RC PRN (03:00)
[2018-04-30] MEDS ORDERED: mag hydrox/Alum hydrox/simeth 30ml oral suspension PO PRN (03:00)
[2018-04-30] MEDS ORDERED: ondansetron/PF 4mg/2ml inj IV PRN (03:00)
[2018-04-30] MEDS ORDERED: dextrose 50%-water 50ml dispensing syringe IV PRN ×2 (03:05)
[2018-04-30] MEDS ORDERED: glucagon, human recombinant 1mg kit SUBCUT PRN (03:05)
[2018-04-30] MEDS ORDERED: dextrose ORAL solution 15 GM/59 ML bottle PO PRN ×2 (03:05)
[2018-04-30] MEDS ORDERED: MESSAGE TO PHARMACY PO ONE (03:05)
[2018-04-30] MEDS: normal saline 1000ml 1,000 ML IV SCH (03:16)
[2018-04-30] MEDS: HYDROmorphone 1 mg/ml syringe IV PRN (04:17)
[2018-04-30 05:37] LABS: PLATELET ESTIMATE NORMAL; TOTAL CELLS COUNTED 100
[2018-04-30] MEDS: docusate sod 100mg capsule PO SCH ×2 (08:00→19:55)
[2018-04-30] MEDS ORDERED: vancomycin/NS 1 GM ADD-VANTAGE 250 ML IV SCH (08:00)
[2018-04-30] MEDS: levoFLOXACIN-Levaquin 500mg/D5 100 ML IV SCH (08:06)
[2018-04-30] MEDS: atorvastatin 20mg tablet PO SCH (10:27)
[2018-04-30] MEDS: lisinopril 5mg tablet PO SCH (10:28)
[2018-04-30] MEDS: aspirin 81mg tablet.DR PO SCH (10:28)
[2018-04-30] MEDS: clopidogrel 75mg tablet PO SCH (10:28)
[2018-04-30] MEDS: metoprolol tartrate 25mg tablet PO SCH ×2 (10:29→19:55)
[2018-04-30 14:00] VITALS: BP 150/55
[2018-04-30 15:00] VITALS: BP 128/60
[2018-04-30] MEDS: vancomycin/NS 1 GM ADD-VANTAGE 250 ML IV SCH (15:41)
[2018-04-30 19:00] VITALS: BP 156/68
[2018-04-30] MEDS ORDERED: temazepam 15mg capsule PO PRN (21:00)
[2018-04-30 21:45] VITALS: BP 141/64
[2018-05-01] VITALS: BP 134/61
[2018-05-01] MEDS: vancomycin/NS 1 GM ADD-VANTAGE 250 ML IV SCH (03:04)
[2018-05-01] MEDS: normal saline 1000ml 1,000 ML IV SCH (03:04)
[2018-05-01 05:16] LABS: BASOPHILS # (AUTO) 0.1 X10'3 (0-0.2); BASOPHILS % (AUTO) 0.6 % (0-1); EOSINOPHILS % (AUTO) 0 % (0-6); HEMATOCRIT 34.8 % (42.0-52.0); HEMOGLOBIN 11.7 g/dl (14.0-17.9); LYMPHOCYTES # (AUTO) 1.8 X10'3 (1.1-4.8); LYMPHOCYTES % (AUTO) 19.9 % (21-51); MEAN CORPUSCULAR HEMOGLOBIN 29.1 PG (27.0-31.0); MEAN CORPUSCULAR HGB CONC 33.7 % (33.0-36.5); MEAN CORPUSCULAR VOLUME 86.5 FL (78-98); MEAN PLATELET VOLUME 9.4 FL (7.4-10.4); MONOCYTES # (AUTO) 0.8 X10'3 (0-0.9); MONOCYTES % (AUTO) 8.4 % (2-12); NEUTROPHILS # (AUTO) 6.4 X10'3 (1.8-7.7); NEUTROPHILS % (AUTO) 71.1 % (42-75); PLATELET COUNT 165 X10'3 (140-440); RED BLOOD COUNT 4.03 X10'6 (4.70-6.10); RED CELL DISTRIBUTION WIDTH 12.9 % (11.5-14.5)
[2018-05-01 05:39] LABS: ALANINE AMINOTRANSFERASE 19 U/L (12-78); ALBUMIN 3.1 G/DL (3.4-5.0); ALBUMIN/GLOBULIN RATIO 0.8 (1.1-1.5); ALKALINE PHOSPHATASE 73 IU/L (46-116); ANION GAP 9 (8-16); ASPARTATE AMINO TRANSFERASE 20 U/L (10-37); BILIRUBIN,TOTAL 0.5 MG/DL (0.1-1.0); BLOOD UREA NITROGEN 10 MG/DL (7-18); BUN/CREATININE RATIO 10.6 (5.4-32.0); CALCIUM 8.9 MG/DL (8.5-10.1); CHLORIDE 99 MMOL/L (99-107); CREATININE 0.94 MG/DL (0.60-1.10); GLUCOSE 150 MG/DL (70-104); POTASSIUM 3.3 MMOL/L (3.5-5.1); SODIUM 134 MMOL/L (135-145); TOTAL CARBON DIOXIDE 25.9 MMOL/L (24-32); TOTAL PROTEIN 7.1 G/DL (6.4-8.2); eGFR 82 ML/MIN
[2018-05-01] MEDS: docusate sod 100mg capsule PO SCH ×3 (07:46→19:18)
[2018-05-01] MEDS: metoprolol tartrate 25mg tablet PO SCH ×2 (07:50→19:22)
[2018-05-01] MEDS: lisinopril 5mg tablet PO SCH (07:51)
[2018-05-01 08:00] VITALS: BP 99/50
[2018-05-01] MEDS: atorvastatin 20mg tablet PO SCH (08:03)
[2018-05-01] MEDS: aspirin 81mg tablet.DR PO SCH (08:04)
[2018-05-01] MEDS: clopidogrel 75mg tablet PO SCH (08:04)
[2018-05-01] MEDS: levoFLOXACIN-Levaquin 500mg/D5 100 ML IV SCH (08:04)
[2018-05-01] MEDS ORDERED: magnesium 4gm in 100ml NS 100 ML IV PRN (11:35)
[2018-05-01] MEDS ORDERED: potassium Cl 40MEQ/NS 500ml 500 ML IV PRN ×2 (11:35)
[2018-05-01] MEDS ORDERED: potassium Cl 20 mEq SR tablet PO PRN ×2 (11:35)
[2018-05-01] MEDS ORDERED: magnesium Cl slow-release 64mg tablet PO PRN (11:35)
[2018-05-01 12:00] VITALS: BP 104/54
[2018-05-01] MEDS ORDERED: VANCOMYCIN LEVEL IV ONE (14:30)
[2018-05-01] MEDS: vancomycin inj 1,250 MG in normal saline 250ml IV soln 250 ML IV SCH (16:07)
[2018-05-01] MEDS: insulin Lispro (HumaLOG) vial - multi-dose SQ SCH (19:22)
[2018-05-01 20:00] VITALS: BP 118/61
[2018-05-01] MEDS: lactobacillus rhamnosus 10,000 MMU CELLS/CAPSULE PO SCH (20:53)
[2018-05-01] MEDS: HYDROmorphone 1 mg/ml syringe IV PRN (21:35)
[2018-05-02 00:29] VITALS: BP 126/62
[2018-05-02] MEDS: vancomycin inj 1,250 MG in normal saline 250ml IV soln 250 ML IV SCH (03:39)
[2018-05-02 05:25] LABS: BASOPHILS % (AUTO) 0.6 % (0-1); EOSINOPHILS # (AUTO) 0.1 X10'3 (0-0.9); HEMATOCRIT 31.3 % (42.0-52.0); HEMOGLOBIN 10.6 g/dl (14.0-17.9); LYMPHOCYTES # (AUTO) 2.2 X10'3 (1.1-4.8); MEAN CORPUSCULAR HEMOGLOBIN 29.5 PG (27.0-31.0); MEAN CORPUSCULAR HGB CONC 33.9 % (33.0-36.5); MEAN CORPUSCULAR VOLUME 86.9 FL (78-98); MEAN PLATELET VOLUME 9.7 FL (7.4-10.4); MONOCYTES % (AUTO) 14.7 % (2-12); NEUTROPHILS # (AUTO) 3.3 X10'3 (1.8-7.7); NEUTROPHILS % (AUTO) 49.7 % (42-75); PLATELET COUNT 164 X10'3 (140-440); RED CELL DISTRIBUTION WIDTH 13.1 % (11.5-14.5); WHITE BLOOD COUNT 6.7 X10'3 (4.5-11.0)
[2018-05-02 05:37] LABS: ALANINE AMINOTRANSFERASE 26 U/L (12-78); ALBUMIN 2.7 G/DL (3.4-5.0); ALBUMIN/GLOBULIN RATIO 0.6 (1.1-1.5); ALKALINE PHOSPHATASE 68 IU/L (46-116); ANION GAP 8 (8-16); ASPARTATE AMINO TRANSFERASE 27 U/L (10-37); BILIRUBIN,TOTAL 0.4 MG/DL (0.1-1.0); BLOOD UREA NITROGEN 17 MG/DL (7-18); BUN/CREATININE RATIO 16.2 (5.4-32.0); CALCIUM 8.8 MG/DL (8.5-10.1); CHLORIDE 100 MMOL/L (99-107); CREATININE 1.05 MG/DL (0.60-1.10); GLUCOSE 132 MG/DL (70-104); MAGNESIUM 1.9 MG/DL (1.5-2.4); POTASSIUM 3.4 MMOL/L (3.5-5.1); SODIUM 134 MMOL/L (135-145); TOTAL CARBON DIOXIDE 25.6 MMOL/L (24-32); TOTAL PROTEIN 6.9 G/DL (6.4-8.2); eGFR 72 ML/MIN
[2018-05-02 08:00] VITALS: BP 126/57
[2018-05-02] MEDS: docusate sod 100mg capsule PO SCH ×2 (08:00→20:00)
[2018-05-02] MEDS: clopidogrel 75mg tablet PO SCH (08:18)
[2018-05-02] MEDS: lactobacillus rhamnosus 10,000 MMU CELLS/CAPSULE PO SCH ×2 (08:18→20:23)
[2018-05-02] MEDS: atorvastatin 20mg tablet PO SCH (08:19)
[2018-05-02] MEDS: aspirin 81mg tablet.DR PO SCH (08:19)
[2018-05-02] MEDS: lisinopril 5mg tablet PO SCH (08:20)
[2018-05-02] MEDS: metoprolol tartrate 25mg tablet PO SCH ×2 (08:20→20:23)
[2018-05-02] MEDS: insulin Lispro (HumaLOG) vial - multi-dose SQ SCH ×3 (09:37→20:17)
[2018-05-02] MEDS: levoFLOXACIN 500mg tablet PO SCH (11:18)
[2018-05-02] MEDS: HYDROmorphone 1 mg/ml syringe IV PRN ×2 (11:19→20:27)
[2018-05-02] MEDS: vancomycin/NS 1 GM ADD-VANTAGE 250 ML IV SCH (15:22)
[2018-05-02] MEDS ORDERED: gadopentetate dimeglumine 7.5 MMOL/15 ML syringe ONE (17:58)
[2018-05-02 20:00] VITALS: BP 145/64
[2018-05-03] VITALS: BP 119/56
[2018-05-03] MEDS: vancomycin/NS 1 GM ADD-VANTAGE 250 ML IV SCH ×2 (03:30→15:28)
[2018-05-03 04:59] LABS: BASOPHILS % (AUTO) 0.4 % (0-1); EOSINOPHILS # (AUTO) 0.3 X10'3 (0-0.9); EOSINOPHILS % (AUTO) 5.5 % (0-6); HEMATOCRIT 29.1 % (42.0-52.0); HEMOGLOBIN 9.7 g/dl (14.0-17.9); LYMPHOCYTES # (AUTO) 2.1 X10'3 (1.1-4.8); LYMPHOCYTES % (AUTO) 33.6 % (21-51); MEAN CORPUSCULAR HEMOGLOBIN 29.1 PG (27.0-31.0); MEAN CORPUSCULAR HGB CONC 33.4 % (33.0-36.5); MEAN CORPUSCULAR VOLUME 87.1 FL (78-98); MEAN PLATELET VOLUME 9.2 FL (7.4-10.4); MONOCYTES % (AUTO) 15.7 % (2-12); NEUTROPHILS # (AUTO) 2.8 X10'3 (1.8-7.7); NEUTROPHILS % (AUTO) 44.8 % (42-75); PLATELET COUNT 168 X10'3 (140-440); RED BLOOD COUNT 3.34 X10'6 (4.70-6.10); RED CELL DISTRIBUTION WIDTH 13.1 % (11.5-14.5); WHITE BLOOD COUNT 6.2 X10'3 (4.5-11.0)
[2018-05-03 05:17] LABS: ALANINE AMINOTRANSFERASE 36 U/L (12-78); ALBUMIN 2.5 G/DL (3.4-5.0); ALBUMIN/GLOBULIN RATIO 0.6 (1.1-1.5); ALKALINE PHOSPHATASE 63 IU/L (46-116); ANION GAP 9 (8-16); ASPARTATE AMINO TRANSFERASE 29 U/L (10-37); BILIRUBIN,TOTAL 0.3 MG/DL (0.1-1.0); BLOOD UREA NITROGEN 19 MG/DL (7-18); BUN/CREATININE RATIO 16.4 (5.4-32.0); CALCIUM 8.8 MG/DL (8.5-10.1); CHLORIDE 102 MMOL/L (99-107); CREATININE 1.16 MG/DL (0.60-1.10); GLUCOSE 155 MG/DL (70-104); MAGNESIUM 1.9 MG/DL (1.5-2.4); POTASSIUM 3.7 MMOL/L (3.5-5.1); SODIUM 137 MMOL/L (135-145); TOTAL CARBON DIOXIDE 26.4 MMOL/L (24-32); TOTAL PROTEIN 6.4 G/DL (6.4-8.2); eGFR 64 ML/MIN
[2018-05-03 07:00] VITALS: BP 119/51
[2018-05-03] MEDS: docusate sod 100mg capsule PO SCH ×3 (08:00→19:30)
[2018-05-03] MEDS: lactobacillus rhamnosus 10,000 MMU CELLS/CAPSULE PO SCH ×2 (08:08→19:24)
[2018-05-03] MEDS: atorvastatin 20mg tablet PO SCH (08:09)
[2018-05-03] MEDS: clopidogrel 75mg tablet PO SCH (08:10)
[2018-05-03] MEDS: aspirin 81mg tablet.DR PO SCH (08:10)
[2018-05-03] MEDS: lisinopril 5mg tablet PO SCH (08:11)
[2018-05-03] MEDS: metoprolol tartrate 25mg tablet PO SCH ×2 (08:12→19:25)
[2018-05-03] MEDS: enoxaparin 40mg/0.4ml syringe SUBCUT SCH (08:14)
[2018-05-03] MEDS: HYDROmorphone 1 mg/ml syringe IV PRN ×2 (08:50→19:25)
[2018-05-03] MEDS: insulin Lispro (HumaLOG) vial - multi-dose SQ SCH ×3 (08:54→19:33)
[2018-05-03 11:00] VITALS: BP 98/65
[2018-05-03] MEDS: levoFLOXACIN 500mg tablet PO SCH (11:51)
[2018-05-03] MEDS: metroNIDAZOLE 500mg tablet PO SCH ×2 (17:23→23:39)
[2018-05-03] MEDS: normal saline 1000ml 1,000 ML IV SCH (19:34)
[2018-05-03 20:00] VITALS: BP 114/57
[2018-05-04] VITALS: BP 95/47
[2018-05-04] MEDS ORDERED: VANCOMYCIN LEVEL IV ONE (02:30)
[2018-05-04] MEDS: vancomycin/NS 1 GM ADD-VANTAGE 250 ML IV SCH (02:44)
[2018-05-04 03:02] LABS: BASOPHILS # (AUTO) 0.1 X10'3 (0-0.2); EOSINOPHILS # (AUTO) 0.3 X10'3 (0-0.9); EOSINOPHILS % (AUTO) 3.8 % (0-6); HEMATOCRIT 28.2 % (42.0-52.0); HEMOGLOBIN 9.5 g/dl (14.0-17.9); LYMPHOCYTES # (AUTO) 2.6 X10'3 (1.1-4.8); LYMPHOCYTES % (AUTO) 38.1 % (21-51); MEAN CORPUSCULAR HEMOGLOBIN 29.3 PG (27.0-31.0); MEAN CORPUSCULAR HGB CONC 33.7 % (33.0-36.5); MEAN CORPUSCULAR VOLUME 86.9 FL (78-98); MEAN PLATELET VOLUME 8.8 FL (7.4-10.4); MONOCYTES # (AUTO) 0.9 X10'3 (0-0.9); MONOCYTES % (AUTO) 13.5 % (2-12); NEUTROPHILS % (AUTO) 43.6 % (42-75); PLATELET COUNT 170 X10'3 (140-440); RED BLOOD COUNT 3.24 X10'6 (4.70-6.10); RED CELL DISTRIBUTION WIDTH 12.7 % (11.5-14.5); WHITE BLOOD COUNT 6.8 X10'3 (4.5-11.0)
[2018-05-04 03:20] LABS: ALANINE AMINOTRANSFERASE 34 U/L (12-78); ALBUMIN 2.8 G/DL (3.4-5.0); ALBUMIN/GLOBULIN RATIO 0.7 (1.1-1.5); ALKALINE PHOSPHATASE 73 IU/L (46-116); ANION GAP 6 (8-16); ASPARTATE AMINO TRANSFERASE 30 U/L (10-37); BILIRUBIN,TOTAL 0.2 MG/DL (0.1-1.0); BLOOD UREA NITROGEN 21 MG/DL (7-18); BUN/CREATININE RATIO 18.9 (5.4-32.0); CALCIUM 8.8 MG/DL (8.5-10.1); CHLORIDE 103 MMOL/L (99-107); CREATININE 1.11 MG/DL (0.60-1.10); GLUCOSE 141 MG/DL (70-104); MAGNESIUM 1.9 MG/DL (1.5-2.4); POTASSIUM 3.8 MMOL/L (3.5-5.1); SODIUM 138 MMOL/L (135-145); TOTAL CARBON DIOXIDE 29.2 MMOL/L (24-32); TOTAL PROTEIN 6.6 G/DL (6.4-8.2); eGFR 67 ML/MIN
[2018-05-04 03:27] LABS: VANCOMYCIN,TROUGH 22.3 UG/ML (6.0-14.0)
[2018-05-04 07:00] VITALS: BP 119/63
[2018-05-04] MEDS: aspirin 81mg tablet.DR PO SCH (07:26)
[2018-05-04] MEDS: atorvastatin 20mg tablet PO SCH (07:27)
[2018-05-04] MEDS: clopidogrel 75mg tablet PO SCH (07:27)
[2018-05-04] MEDS: lactobacillus rhamnosus 10,000 MMU CELLS/CAPSULE PO SCH ×2 (07:27→19:38)
[2018-05-04] MEDS: metroNIDAZOLE 500mg tablet PO SCH ×3 (07:28→23:54)
[2018-05-04] MEDS: lisinopril 5mg tablet PO SCH (07:28)
[2018-05-04] MEDS: metoprolol tartrate 25mg tablet PO SCH ×2 (07:28→19:38)
[2018-05-04] MEDS: enoxaparin 40mg/0.4ml syringe SUBCUT SCH (07:29)
[2018-05-04] MEDS: docusate sod 100mg capsule PO SCH ×2 (07:30→19:39)
[2018-05-04] MEDS: insulin Lispro (HumaLOG) vial - multi-dose SQ SCH ×2 (08:36→19:14)
[2018-05-04] MEDS: levoFLOXACIN 750MG TABLET PO SCH (11:46)
[2018-05-04] MEDS: HYDROmorphone 1 mg/ml syringe IV PRN ×2 (11:47→16:23)
[2018-05-04 13:00] VITALS: BP 127/77
[2018-05-04] MEDS: VANCOMYCIN 750MG IV in NS 250 ML IV SCH (16:18)
[2018-05-04] MEDS ORDERED: ringers solution, lacted 1,000 ML IV ONE (17:30)
[2018-05-04 20:00] VITALS: BP 140/66
[2018-05-04 23:55] VITALS: BP 134/68
[2018-05-05] VITALS (14 sets, daily range): BP systolic 133–170; BP diastolic 58–89
[2018-05-05] MEDS: VANCOMYCIN 750MG IV in NS 250 ML IV SCH ×2 (03:51→16:24)
[2018-05-05 05:29] LABS: BASOPHILS # (AUTO) 0.1 X10'3 (0-0.2); BASOPHILS % (AUTO) 0.6 % (0-1); EOSINOPHILS # (AUTO) 0.3 X10'3 (0-0.9); EOSINOPHILS % (AUTO) 3.4 % (0-6); HEMATOCRIT 30.8 % (42.0-52.0); HEMOGLOBIN 10.4 g/dl (14.0-17.9); LYMPHOCYTES # (AUTO) 2.6 X10'3 (1.1-4.8); MEAN CORPUSCULAR HEMOGLOBIN 29.5 PG (27.0-31.0); MEAN CORPUSCULAR HGB CONC 33.9 % (33.0-36.5); MEAN CORPUSCULAR VOLUME 87.2 FL (78-98); MEAN PLATELET VOLUME 9.1 FL (7.4-10.4); MONOCYTES % (AUTO) 12.3 % (2-12); NEUTROPHILS # (AUTO) 4.6 X10'3 (1.8-7.7); NEUTROPHILS % (AUTO) 53.7 % (42-75); PLATELET COUNT 213 X10'3 (140-440); RED BLOOD COUNT 3.53 X10'6 (4.70-6.10); RED CELL DISTRIBUTION WIDTH 13.3 % (11.5-14.5); WHITE BLOOD COUNT 8.6 X10'3 (4.5-11.0)
[2018-05-05 05:44] LABS: ALANINE AMINOTRANSFERASE 32 U/L (12-78); ALBUMIN 2.9 G/DL (3.4-5.0); ALBUMIN/GLOBULIN RATIO 0.7 (1.1-1.5); ALKALINE PHOSPHATASE 76 IU/L (46-116); ANION GAP 7 (8-16); ASPARTATE AMINO TRANSFERASE 19 U/L (10-37); BILIRUBIN,TOTAL 0.3 MG/DL (0.1-1.0); BLOOD UREA NITROGEN 26 MG/DL (7-18); BUN/CREATININE RATIO 22.8 (5.4-32.0); CHLORIDE 104 MMOL/L (99-107); CREATININE 1.14 MG/DL (0.60-1.10); GLUCOSE 165 MG/DL (70-104); INR 1.1 INR; PARTIAL THROMBOPLASTIN TIME 28 SECONDS (22-32); POTASSIUM 3.6 MMOL/L (3.5-5.1); PROTHROMBIN TIME 10.7 SECONDS (9.0-12.0); SODIUM 140 MMOL/L (135-145); TOTAL PROTEIN 7.1 G/DL (6.4-8.2); eGFR 65 ML/MIN
[2018-05-05] MEDS ORDERED: famotidine 20mg tablet PO ONE (06:00)
[2018-05-05] MEDS: lactobacillus rhamnosus 10,000 MMU CELLS/CAPSULE PO SCH ×2 (07:35→19:08)
[2018-05-05] MEDS: metroNIDAZOLE 500mg tablet PO SCH ×2 (07:36→16:23)
[2018-05-05] MEDS: lisinopril 5mg tablet PO SCH (07:36)
[2018-05-05] MEDS: atorvastatin 20mg tablet PO SCH (07:36)
[2018-05-05] MEDS: metoprolol tartrate 25mg tablet PO SCH ×2 (07:36→19:08)
[2018-05-05] MEDS: enoxaparin 40mg/0.4ml syringe SUBCUT SCH (08:00)
[2018-05-05] MEDS: docusate sod 100mg capsule PO SCH ×2 (08:00→19:08)
[2018-05-05] MEDS: clopidogrel 75mg tablet PO SCH (08:00)
[2018-05-05] MEDS: aspirin 81mg tablet.DR PO SCH (08:10)
[2018-05-05] MEDS: insulin Lispro (HumaLOG) vial - multi-dose SQ SCH ×2 (08:13→19:07)
[2018-05-05] MEDS: levoFLOXACIN 750MG TABLET PO SCH (11:00)
[2018-05-05] MEDS ORDERED: methylene blue (5mg/ml) 50mg/10ml ampul IV ONE (11:12)
[2018-05-05] MEDS ORDERED: BUPIVAcaine/PF 2.5mg/ml (0.25%) 10ml vial ONE (11:13)
[2018-05-05] MEDS ORDERED: povidone-iodine 10% topical ointment 28.4gm TP ONE (11:13)
[2018-05-05] MEDS ORDERED: proCHLORperazine 10 MG/2 ml inj IV PRN (11:35)
[2018-05-05] MEDS ORDERED: ringers solution, lacted 1,000 ML IV SCH (11:35)
[2018-05-05] MEDS ORDERED: meperidine/PF 25mg/ml syringe IV PRN ×3 (11:35)
[2018-05-05] MEDS ORDERED: ondansetron/PF 4mg/2ml inj IV PRN (11:35)
[2018-05-05] MEDS ORDERED: morphine 4 MG/ML inj SYRINge IV PRN ×2 (11:35)
[2018-05-05] MEDS ORDERED: midazolam 2 mg/2 ml injection ONE (12:08)
[2018-05-05] MEDS ORDERED: fentaNYL/PF 50MCG/1 ML 2ML syringe ONE (12:08)
[2018-05-05] MEDS: normal saline 1000ml 1,000 ML IV SCH (16:24)
[2018-05-05] MEDS: HYDROmorphone 1 mg/ml syringe IV PRN ×2 (16:26→20:20)
[2018-05-06] VITALS: BP 153/84
[2018-05-06] MEDS: metroNIDAZOLE 500mg tablet PO SCH ×2 (00:24→09:06)
[2018-05-06] MEDS: HYDROmorphone 1 mg/ml syringe IV PRN ×3 (00:24→08:57)
[2018-05-06] MEDS ORDERED: VANCOMYCIN LEVEL IV NR (02:30)
[2018-05-06] MEDS: VANCOMYCIN 750MG IV in NS 250 ML IV SCH (02:46)
[2018-05-06 03:07] LABS: BASOPHILS % (AUTO) 0.5 % (0-1); EOSINOPHILS # (AUTO) 0.2 X10'3 (0-0.9); EOSINOPHILS % (AUTO) 2.8 % (0-6); HEMATOCRIT 28.9 % (42.0-52.0); HEMOGLOBIN 9.7 g/dl (14.0-17.9); LYMPHOCYTES # (AUTO) 2.4 X10'3 (1.1-4.8); LYMPHOCYTES % (AUTO) 30.2 % (21-51); MEAN CORPUSCULAR HEMOGLOBIN 29.1 PG (27.0-31.0); MEAN CORPUSCULAR HGB CONC 33.5 % (33.0-36.5); MEAN CORPUSCULAR VOLUME 86.8 FL (78-98); MEAN PLATELET VOLUME 8.1 FL (7.4-10.4); MONOCYTES % (AUTO) 12.1 % (2-12); NEUTROPHILS # (AUTO) 4.4 X10'3 (1.8-7.7); NEUTROPHILS % (AUTO) 54.4 % (42-75); PLATELET COUNT 227 X10'3 (140-440); RED BLOOD COUNT 3.33 X10'6 (4.70-6.10); RED CELL DISTRIBUTION WIDTH 12.7 % (11.5-14.5); WHITE BLOOD COUNT 8.1 X10'3 (4.5-11.0)
[2018-05-06 03:21] LABS: ALBUMIN 2.8 G/DL (3.4-5.0); ANION GAP 5 (8-16); BLOOD UREA NITROGEN 17 MG/DL (7-18); BUN/CREATININE RATIO 13.9 (5.4-32.0); CALCIUM 8.9 MG/DL (8.5-10.1); CHLORIDE 104 MMOL/L (99-107); CREATININE 1.22 MG/DL (0.60-1.10); GLUCOSE 160 MG/DL (70-104); MAGNESIUM 1.9 MG/DL (1.5-2.4); POTASSIUM 3.4 MMOL/L (3.5-5.1); SODIUM 141 MMOL/L (135-145); TOTAL CARBON DIOXIDE 31.8 MMOL/L (24-32); VANCOMYCIN,TROUGH 16.1 UG/ML (6.0-14.0); eGFR 60 ML/MIN
[2018-05-06 07:20] VITALS: BP 128/62
[2018-05-06] MEDS ORDERED: potassium Cl 40MEQ/NS 500ml 500 ML IV PRN ×2 (07:20)
[2018-05-06] MEDS ORDERED: magnesium Cl slow-release 64mg tablet PO PRN (07:20)
[2018-05-06] MEDS ORDERED: magnesium 2GM in 50ml NS 50 ML IV PRN (07:20)
[2018-05-06] MEDS ORDERED: magnesium 4gm in 100ml NS 100 ML IV PRN (07:20)
[2018-05-06] MEDS ORDERED: potassium Cl 20 mEq SR tablet PO PRN ×2 (07:20)
[2018-05-06] MEDS: docusate sod 100mg capsule PO SCH (08:00)
[2018-05-06] MEDS: lactobacillus rhamnosus 10,000 MMU CELLS/CAPSULE PO SCH (09:06)
[2018-05-06] MEDS: atorvastatin 20mg tablet PO SCH (09:07)
[2018-05-06] MEDS: metoprolol tartrate 25mg tablet PO SCH (09:08)
[2018-05-06] MEDS: clopidogrel 75mg tablet PO SCH (09:09)
[2018-05-06] MEDS: aspirin 81mg tablet.DR PO SCH (09:10)
[2018-05-06] MEDS: enoxaparin 40mg/0.4ml syringe SUBCUT SCH (09:10)
[2018-05-06] MEDS: lisinopril 5mg tablet PO SCH (09:10)
[2018-05-06] MEDS: insulin Lispro (HumaLOG) vial - multi-dose SQ SCH (09:15)
[2018-05-06] MEDS ORDERED: LEVO750T46 PO (11:34)
[2018-05-06] MEDS ORDERED: HYDR-4353 PO (11:34)
[2018-05-06] MEDS ORDERED: COL100C PO (11:34)
[2018-05-06] MEDS ORDERED: METR500T4 PO (11:34)
[2018-05-06] MEDS ORDERED: POTA20TA19 PO (11:38)
[2018-05-06 12:00] VITALS: BP 116/60
[2018-05-06] MEDS: levoFLOXACIN 750MG TABLET PO SCH (12:15)
== END 2018-05-06 13:56 | disposition home or self-care (01) | DRG 314 ==
LOC: ER 22:57 → ED HOLD 04-30 02:59 → PCU 3S 04-30 13:58 → SUR 3N 04-30 21:44
PROVIDERS: ADMIT Family Medicine; ATTEND Internal Medicine
PROC: BQ3LYZZ Magnetic Resonance Imaging (MRI) of Right Foot using Other Contrast (ICD-10-PCS; 2018-05-02)
PROC: 0QBN0ZZ Excision of Right Metatarsal, Open Approach (ICD-10-PCS; principal; 2018-05-05 12:03)
DX: T87.81 Dehiscence of amputation stump (principal); A41.9 Sepsis, unspecified organism; E11.69 Type 2 diabetes mellitus with other specified complication; E11.51 Type 2 diabetes mellitus with diabetic peripheral angiopathy without gangrene; E11.65 Type 2 diabetes mellitus with hyperglycemia; Y82.8 Other medical devices associated with adverse incidents; E87.6 Hypokalemia; F17.210 Nicotine dependence, cigarettes, uncomplicated; I10 Essential (primary) hypertension; L03.115 Cellulitis of right lower limb; M86.8X7 Other osteomyelitis, ankle and foot; Z88.0 Allergy status to penicillin; Z88.1 Allergy status to other antibiotic agents; Z95.828 Presence of other vascular implants and grafts; Z79.899 Other long term (current) drug therapy; Y92.89 Other specified places as the place of occurrence of the external cause
CPT/HCPCS: 36415; 71045; 73700; 73720; 80048; 80053; 80202; 81001; 82948; 83036; 83605; 83735; 84145; 85025; 85610; 85651; 85730; 86140; 87040; 87070; 93005; 93926; 97110; 97116; 97161; 99285; A4615; A6223; A6449; A7000; A9579; G0378; J1170; J1650; J1956; J2250; J2270; J3010; J3370; J3490; J7030; J7120

== ENCOUNTER 2018-05-09 08:15 | Outpatient (CLI) | payer MEDICAID ==
[~2018-05-09 08:15] MED LIST changes: -ATOR20TA PO; -CLOP75TA15 PO; +COL100C PO; -FOLI1TAB16 PO; +HYDR-4353 PO; +LEVO750T46 PO; -LISI-642 PO; +METR500T4 PO; +POTA20TA19 PO; -THI100T PO
== END 2018-05-09 11:22 | disposition home or self-care (01) ==
LOC: WOUND CARE 08:15
PROVIDERS: ATTEND Surgery
DX: T87.81 Dehiscence of amputation stump (principal); E11.621 Type 2 diabetes mellitus with foot ulcer; L97.512 Non-pressure chronic ulcer of other part of right foot with fat layer exposed; E11.40 Type 2 diabetes mellitus with diabetic neuropathy, unspecified; E11.65 Type 2 diabetes mellitus with hyperglycemia; E11.69 Type 2 diabetes mellitus with other specified complication; M86.8X7 Other osteomyelitis, ankle and foot; E11.52 Type 2 diabetes mellitus with diabetic peripheral angiopathy with gangrene; I87.2 Venous insufficiency (chronic) (peripheral); E43 Unspecified severe protein-calorie malnutrition; I10 Essential (primary) hypertension; F10.10 Alcohol abuse, uncomplicated; F17.210 Nicotine dependence, cigarettes, uncomplicated; Z71.41 Alcohol abuse counseling and surveillance of alcoholic; Z68.23 Body mass index [BMI] 23.0-23.9, adult; Z79.02 Long term (current) use of antithrombotics/antiplatelets; Z79.899 Other long term (current) drug therapy; Z71.6 Tobacco abuse counseling; Y83.5 Amputation of limb(s) as the cause of abnormal reaction of the patient, or of later complication, without mention of misadventure at the time of the procedure
CPT/HCPCS: 36416; 82948; 97605

== ENCOUNTER 2018-05-12 08:00 | Outpatient (CLI) | payer MEDICAID ==
[~2018-05-12 08:00] MED LIST changes: +ATOR20TA PO; +CLOP75TA15 PO; +FOLI1TAB16 PO; +LISI-642 PO; +THI100T PO
== END 2018-05-12 10:14 | disposition home or self-care (01) ==
LOC: EDSTATUS 08:00 → WOUND CARE 08:00
PROVIDERS: ATTEND Surgery
DX: T87.81 Dehiscence of amputation stump (principal); E11.621 Type 2 diabetes mellitus with foot ulcer; L97.512 Non-pressure chronic ulcer of other part of right foot with fat layer exposed; E11.40 Type 2 diabetes mellitus with diabetic neuropathy, unspecified; E11.65 Type 2 diabetes mellitus with hyperglycemia; E11.69 Type 2 diabetes mellitus with other specified complication; M86.8X7 Other osteomyelitis, ankle and foot; E11.52 Type 2 diabetes mellitus with diabetic peripheral angiopathy with gangrene; I87.2 Venous insufficiency (chronic) (peripheral); E43 Unspecified severe protein-calorie malnutrition; I10 Essential (primary) hypertension; F10.10 Alcohol abuse, uncomplicated; F17.210 Nicotine dependence, cigarettes, uncomplicated; Z71.41 Alcohol abuse counseling and surveillance of alcoholic; Z68.23 Body mass index [BMI] 23.0-23.9, adult; Z79.02 Long term (current) use of antithrombotics/antiplatelets; Z79.899 Other long term (current) drug therapy; Z71.6 Tobacco abuse counseling; Y83.5 Amputation of limb(s) as the cause of abnormal reaction of the patient, or of later complication, without mention of misadventure at the time of the procedure
CPT/HCPCS: 36416; 82948; 99214; A6222; A6213; A6446

== ENCOUNTER 2018-05-20 08:06 | Outpatient (CLI) | payer MEDICAID ==
[~2018-05-20 08:06] MED LIST changes: -ATOR20TA PO; -CLOP75TA15 PO; -FOLI1TAB16 PO; -LISI-642 PO; +METR-211 PO; -METR500T4 PO; -POTA20TA19 PO; -THI100T PO
== END 2018-05-20 09:31 | disposition home or self-care (01) ==
LOC: WOUND CARE 08:06
PROVIDERS: ATTEND Surgery
DX: T87.81 Dehiscence of amputation stump (principal); E11.621 Type 2 diabetes mellitus with foot ulcer; L97.512 Non-pressure chronic ulcer of other part of right foot with fat layer exposed; E11.40 Type 2 diabetes mellitus with diabetic neuropathy, unspecified; E11.65 Type 2 diabetes mellitus with hyperglycemia; E11.69 Type 2 diabetes mellitus with other specified complication; M86.8X7 Other osteomyelitis, ankle and foot; E11.52 Type 2 diabetes mellitus with diabetic peripheral angiopathy with gangrene; I87.2 Venous insufficiency (chronic) (peripheral); E43 Unspecified severe protein-calorie malnutrition; I10 Essential (primary) hypertension; F10.10 Alcohol abuse, uncomplicated; F17.210 Nicotine dependence, cigarettes, uncomplicated; Z71.41 Alcohol abuse counseling and surveillance of alcoholic; Z68.23 Body mass index [BMI] 23.0-23.9, adult; Z79.02 Long term (current) use of antithrombotics/antiplatelets; Z79.899 Other long term (current) drug therapy; Z71.6 Tobacco abuse counseling; Y83.5 Amputation of limb(s) as the cause of abnormal reaction of the patient, or of later complication, without mention of misadventure at the time of the procedure
CPT/HCPCS: 36416; 82948; 99211; A6222; A6206; A6446; G0463

== ENCOUNTER 2018-05-26 08:05 | Day surgery (SDC) | payer MEDICAID | END 2018-05-26 10:27 | disposition home or self-care (01) | LOC: WOUND CARE 08:05 | PROVIDERS: ATTEND Surgery | DX: T87.81 Dehiscence of amputation stump (principal); E11.621 Type 2 diabetes mellitus with foot ulcer; L97.512 Non-pressure chronic ulcer of other part of right foot with fat layer exposed; E11.40 Type 2 diabetes mellitus with diabetic neuropathy, unspecified; E11.65 Type 2 diabetes mellitus with hyperglycemia; E11.69 Type 2 diabetes mellitus with other specified complication; M86.8X7 Other osteomyelitis, ankle and foot; E11.52 Type 2 diabetes mellitus with diabetic peripheral angiopathy with gangrene; I87.2 Venous insufficiency (chronic) (peripheral); E43 Unspecified severe protein-calorie malnutrition; I10 Essential (primary) hypertension; F10.10 Alcohol abuse, uncomplicated; F17.210 Nicotine dependence, cigarettes, uncomplicated; Z71.41 Alcohol abuse counseling and surveillance of alcoholic; Z68.23 Body mass index [BMI] 23.0-23.9, adult; Z79.02 Long term (current) use of antithrombotics/antiplatelets; Z79.899 Other long term (current) drug therapy; Z71.6 Tobacco abuse counseling; Y83.5 Amputation of limb(s) as the cause of abnormal reaction of the patient, or of later complication, without mention of misadventure at the time of the procedure | CPT/HCPCS: 36416; 82948; 97597; A6209; A6222; A6021; A6446 ==

== ENCOUNTER 2018-06-02 08:05 | Day surgery (SDC) | payer MEDICAID | END 2018-06-02 10:00 | disposition home or self-care (01) | LOC: WOUND CARE 08:05 | PROVIDERS: ATTEND Surgery | DX: T87.81 Dehiscence of amputation stump (principal); E11.621 Type 2 diabetes mellitus with foot ulcer; L97.512 Non-pressure chronic ulcer of other part of right foot with fat layer exposed; E11.40 Type 2 diabetes mellitus with diabetic neuropathy, unspecified; E11.65 Type 2 diabetes mellitus with hyperglycemia; E11.69 Type 2 diabetes mellitus with other specified complication; M86.8X7 Other osteomyelitis, ankle and foot; E11.52 Type 2 diabetes mellitus with diabetic peripheral angiopathy with gangrene; I87.2 Venous insufficiency (chronic) (peripheral); E43 Unspecified severe protein-calorie malnutrition; I10 Essential (primary) hypertension; F10.10 Alcohol abuse, uncomplicated; F17.210 Nicotine dependence, cigarettes, uncomplicated; Z71.41 Alcohol abuse counseling and surveillance of alcoholic; Z68.23 Body mass index [BMI] 23.0-23.9, adult; Z79.02 Long term (current) use of antithrombotics/antiplatelets; Z79.899 Other long term (current) drug therapy; Z71.6 Tobacco abuse counseling; Y83.5 Amputation of limb(s) as the cause of abnormal reaction of the patient, or of later complication, without mention of misadventure at the time of the procedure | CPT/HCPCS: 11042; 36416; 82948; A6209; A6021; A6206; A6446 ==

== ENCOUNTER 2018-06-09 07:50 | Day surgery (SDC) | payer MEDICAID ==
[~2018-06-09 07:50] MED LIST changes: -HYDR-4353 PO; -LEVO750T46 PO
[2018-06-09] MEDS ORDERED: LIDOcaine/PRILOcaine 5gm cream TP ONE (09:40)
--- NOTE | 2018-06-09 11:00 | NUR ---
Patient arrived seated on rolling walker wearing off loading shoe from [facility] and was admitted to outpatient wound care for physician visit with Denny Acharya MD. Dressing removed, wound cleansed and Emla cream applied per order. Patient assessed for changes in conditions, medications and medical history. 0922 - blood glucose 127. Patient instructed that elevated blood sugars delay healing of the wound and can cause further complications including but not limited to amputation of toes or feet. 1000 - Dr. Acharya at bedside accompanied by RN. Wound assessed, time out performed by MD/RN. Wound debrided as detailed in the physician progress/procedure note. Plan of care discussed with patient. Dressings placed per MD orders. Patient instructed on the signs and symptoms of infection and to call the Wound Center if any occur or to go to the ED if we are closed: Increased pain in wound Increase in drainage from the wound Redness in the skin surrounding the wound Bleeding from the wound Temperature of 101 or greater Patient instructed that the weight of their body puts a large amount of pressure on their wounds. This pressure keeps the new tissue from growing and inhibits new blood vessels from forming. Explained that, if they continue to bear weight on a body part that has a wound, the time it takes to heal the wound increases, the wound may get worse or the wound may not heal at all. Patient verbalized understanding of all discharge instructions and plan of care and exited seated on rolling walker wearing off loading shoe out to [facility] in stable condition with no sign or symptom of distress at time of discharge.
== END 2018-06-09 10:12 | disposition home or self-care (01) ==
LOC: WOUND CARE 07:50
PROVIDERS: ATTEND Surgery
DX: T87.81 Dehiscence of amputation stump (principal); E11.621 Type 2 diabetes mellitus with foot ulcer; L97.512 Non-pressure chronic ulcer of other part of right foot with fat layer exposed; E11.40 Type 2 diabetes mellitus with diabetic neuropathy, unspecified; E11.65 Type 2 diabetes mellitus with hyperglycemia; E11.69 Type 2 diabetes mellitus with other specified complication; M86.8X7 Other osteomyelitis, ankle and foot; E11.52 Type 2 diabetes mellitus with diabetic peripheral angiopathy with gangrene; I87.2 Venous insufficiency (chronic) (peripheral); E43 Unspecified severe protein-calorie malnutrition; I10 Essential (primary) hypertension; F10.10 Alcohol abuse, uncomplicated; F17.210 Nicotine dependence, cigarettes, uncomplicated; Z71.41 Alcohol abuse counseling and surveillance of alcoholic; Z68.23 Body mass index [BMI] 23.0-23.9, adult; Z79.02 Long term (current) use of antithrombotics/antiplatelets; Z79.899 Other long term (current) drug therapy; Z71.6 Tobacco abuse counseling; Y83.5 Amputation of limb(s) as the cause of abnormal reaction of the patient, or of later complication, without mention of misadventure at the time of the procedure
CPT/HCPCS: 11042; 36416; 82948; A6209; A6021; A6206; A6446

== ENCOUNTER 2018-06-16 08:05 | Day surgery (SDC) | payer MEDICAID ==
[~2018-06-16 08:05] MED LIST changes: +METR-159 PO; -METR-211 PO
[2018-06-16] MEDS ORDERED: LIDOcaine/PRILOcaine 5gm cream TP ONE (09:46)
--- NOTE | 2018-06-16 10:30 | NUR ---
Patient ambulated with walker accompanied by family members from [facility] and was admitted to outpatient wound care for physician visit with Denny Acharya MD. Dressing removed, wound cleansed and Emla cream applied per order. Patient assessed for changes in conditions, medications and medical history. 09 - blood glucose 109. Patient instructed that elevated blood sugars delay healing of the wound and can cause further complications including but not limited to amputation of toes or feet. 1005 - Dr. Acharya at bedside accompanied by RN. Wound assessed, time out performed by MD/RN. Wound debrided and procedure performed as detailed in the physician progress/procedure note. Plan of care discussed with patient. Dressings placed per MD orders. Patient instructed on the signs and symptoms of infection and to call the Wound Center if any occur or to go to the ED if we are closed: Increased pain in wound Increase in drainage from the wound Redness in the skin surrounding the wound Bleeding from the wound Temperature of 101 or greater Patient instructed that the weight of their body puts a large amount of pressure on their wounds. This pressure keeps the new tissue from growing and inhibits new blood vessels from forming. Explained that, if they continue to bear weight on a body part that has a wound, the time it takes to heal the wound increases, the wound may get worse or the wound may not heal at all. Patient verbalized understanding of all discharge instructions and plan of care and ambulated with walker accompanied by family members out to [facility] in stable condition with no sign or symptom of distress at time of discharge.
== END 2018-06-16 10:27 | disposition home or self-care (01) ==
LOC: WOUND CARE 08:05
PROVIDERS: ATTEND Surgery
DX: T87.81 Dehiscence of amputation stump (principal); E11.621 Type 2 diabetes mellitus with foot ulcer; L97.512 Non-pressure chronic ulcer of other part of right foot with fat layer exposed; E11.40 Type 2 diabetes mellitus with diabetic neuropathy, unspecified; E11.65 Type 2 diabetes mellitus with hyperglycemia; E11.69 Type 2 diabetes mellitus with other specified complication; M86.8X7 Other osteomyelitis, ankle and foot; E11.52 Type 2 diabetes mellitus with diabetic peripheral angiopathy with gangrene; I87.2 Venous insufficiency (chronic) (peripheral); E43 Unspecified severe protein-calorie malnutrition; I10 Essential (primary) hypertension; F10.10 Alcohol abuse, uncomplicated; F17.210 Nicotine dependence, cigarettes, uncomplicated; Z71.41 Alcohol abuse counseling and surveillance of alcoholic; Z68.23 Body mass index [BMI] 23.0-23.9, adult; Z79.02 Long term (current) use of antithrombotics/antiplatelets; Z79.899 Other long term (current) drug therapy; Z71.6 Tobacco abuse counseling; Y83.5 Amputation of limb(s) as the cause of abnormal reaction of the patient, or of later complication, without mention of misadventure at the time of the procedure
CPT/HCPCS: 15275; 36416; 82948; A6209; A6222; Q4187; A6250; A6446

== ENCOUNTER 2018-06-23 08:05 | Day surgery (SDC) | payer MEDICAID ==
--- NOTE | 2018-06-23 10:45 | NUR ---
Patient arrived via wheelchair from [facility] and was admitted to outpatient wound care for physician visit with Denny Acharya MD. Dressing removed, wound cleansed and lidocaine applied per order. Patient assessed for changes in conditions, medications and medical history. 0916 - blood glucose 128. Patient instructed that elevated blood sugars delay healing of the wound and can cause further complications including but not limited to amputation of toes or feet. 1015 - Dr. Acharya at bedside accompanied by RN. Wound assessed, time out performed by MD/RN. Wound debrided as detailed in the physician progress/procedure note. Plan of care discussed with patient. Dressings placed per MD orders. Patient instructed on the signs and symptoms of infection and to call the Wound Center if any occur or to go to the ED if we are closed: Increased pain in wound Increase in drainage from the wound Redness in the skin surrounding the wound Bleeding from the wound Temperature of 101 or greater Patient instructed that the weight of their body puts a large amount of pressure on their wounds. This pressure keeps the new tissue from growing and inhibits new blood vessels from forming. Explained that, if they continue to bear weight on a body part that has a wound, the time it takes to heal the wound increases, the wound may get worse or the wound may not heal at all. Patient verbalized understanding of all discharge instructions and plan of care and exited via wheelchair out to [facility] in stable condition with no sign or symptom of distress at time of discharge and is accompanied by his family.
== END 2018-06-23 10:43 | disposition home or self-care (01) ==
LOC: WOUND CARE 08:05
PROVIDERS: ATTEND Surgery
DX: T87.81 Dehiscence of amputation stump (principal); E11.621 Type 2 diabetes mellitus with foot ulcer; L97.512 Non-pressure chronic ulcer of other part of right foot with fat layer exposed; E11.40 Type 2 diabetes mellitus with diabetic neuropathy, unspecified; E11.65 Type 2 diabetes mellitus with hyperglycemia; E11.69 Type 2 diabetes mellitus with other specified complication; M86.8X7 Other osteomyelitis, ankle and foot; E11.52 Type 2 diabetes mellitus with diabetic peripheral angiopathy with gangrene; I87.2 Venous insufficiency (chronic) (peripheral); E43 Unspecified severe protein-calorie malnutrition; I10 Essential (primary) hypertension; E78.5 Hyperlipidemia, unspecified; F10.10 Alcohol abuse, uncomplicated; F17.210 Nicotine dependence, cigarettes, uncomplicated; Z71.41 Alcohol abuse counseling and surveillance of alcoholic; Z68.23 Body mass index [BMI] 23.0-23.9, adult; Z79.02 Long term (current) use of antithrombotics/antiplatelets; Z79.899 Other long term (current) drug therapy; Z71.6 Tobacco abuse counseling; Y83.5 Amputation of limb(s) as the cause of abnormal reaction of the patient, or of later complication, without mention of misadventure at the time of the procedure
CPT/HCPCS: 36416; 82948; 97597; A6209; A6021; A6206; A6446

== ENCOUNTER 2018-06-30 08:10 | Day surgery (SDC) | payer MEDICAID ==
[~2018-06-30 08:10] MED LIST changes: -METR-159 PO
[2018-06-30] MEDS ORDERED: LIDOcaine/PRILOcaine 5gm cream TP ONE (09:31)
--- NOTE | 2018-06-30 11:00 | NUR ---
Patient ambulated with walker accompanied by family members from [facility] and was admitted to outpatient wound care for physician visit with Denny Acharya MD. Dressing removed, wound cleansed. Patient assessed for changes in conditions, medications and medical history. 0913 - blood glucose 112. Patient instructed that elevated blood sugars delay healing of the wound and can cause further complications including but not limited to amputation of toes or feet. 1000 - Dr. Acharya at bedside accompanied by RN. Wound assessed, time out performed by MD/RN. Wound debrided as detailed in the physician progress/procedure note. Plan of care discussed with patient. Dressings placed per MD orders. Patient instructed on the signs and symptoms of infection and to call the Wound Center if any occur or to go to the ED if we are closed: Increased pain in wound Increase in drainage from the wound Redness in the skin surrounding the wound Bleeding from the wound Temperature of 101 or greater Patient instructed that the weight of their body puts a large amount of pressure on their wounds. This pressure keeps the new tissue from growing and inhibits new blood vessels from forming. Explained that, if they continue to bear weight on a body part that has a wound, the time it takes to heal the wound increases, the wound may get worse or the wound may not heal at all. Patient verbalized understanding of all discharge instructions and plan of care and ambulated with walker out to [facility] accompanied by his family and is in stable condition with no sign or symptom of distress at time of discharge.
== END 2018-06-30 10:21 | disposition home or self-care (01) ==
LOC: WOUND CARE 08:10
PROVIDERS: ATTEND Surgery
DX: T87.81 Dehiscence of amputation stump (principal); E11.621 Type 2 diabetes mellitus with foot ulcer; L97.512 Non-pressure chronic ulcer of other part of right foot with fat layer exposed; E11.40 Type 2 diabetes mellitus with diabetic neuropathy, unspecified; E11.65 Type 2 diabetes mellitus with hyperglycemia; E11.69 Type 2 diabetes mellitus with other specified complication; M86.8X7 Other osteomyelitis, ankle and foot; E11.52 Type 2 diabetes mellitus with diabetic peripheral angiopathy with gangrene; I87.2 Venous insufficiency (chronic) (peripheral); E43 Unspecified severe protein-calorie malnutrition; I10 Essential (primary) hypertension; E78.5 Hyperlipidemia, unspecified; F10.10 Alcohol abuse, uncomplicated; F17.210 Nicotine dependence, cigarettes, uncomplicated; Z71.41 Alcohol abuse counseling and surveillance of alcoholic; Z68.23 Body mass index [BMI] 23.0-23.9, adult; Z79.02 Long term (current) use of antithrombotics/antiplatelets; Z79.899 Other long term (current) drug therapy; Z71.6 Tobacco abuse counseling; Z95.828 Presence of other vascular implants and grafts; Y83.5 Amputation of limb(s) as the cause of abnormal reaction of the patient, or of later complication, without mention of misadventure at the time of the procedure
CPT/HCPCS: 36416; 82948; 97597; A6209; A6021; A6206; A6446

== ENCOUNTER 2018-07-07 08:05 | Day surgery (SDC) | payer MEDICAID ==
[2018-07-07] MEDS ORDERED: LIDOcaine 2% 5ml jelly ONE (09:41)
--- NOTE | 2018-07-07 10:45 | NUR ---
Patient ambulated with rolling walker accompanied by his son from [facility] and was admitted to outpatient wound care for physician visit with Denny Acharya MD. Dressing removed, wound cleansed and lidocaine applied per order. Patient assessed for changes in conditions, medications and medical history. 900 - blood glucose 106. Patient instructed that elevated blood sugars delay healing of the wound and can cause further complications including but not limited to amputation of toes or feet. 958 - Dr. Acharya at bedside accompanied by RN. Wound assessed, time out performed by MD/RN. Wound debrided as detailed in the physician progress/procedure note. Plan of care discussed with patient. Dressings placed per MD orders. Patient instructed on the signs and symptoms of infection and to call the Wound Center if any occur or to go to the ED if we are closed: Increased pain in wound Increase in drainage from the wound Redness in the skin surrounding the wound Bleeding from the wound Temperature of 101 or greater Patient instructed that the weight of their body puts a large amount of pressure on their wounds. This pressure keeps the new tissue from growing and inhibits new blood vessels from forming. Explained that, if they continue to bear weight on a body part that has a wound, the time it takes to heal the wound increases, the wound may get worse or the wound may not heal at all. Patient verbalized understanding of all discharge instructions and plan of care and ambulated with walker accompanied by son out to [facility] in stable condition with no sign or symptom of distress at time of discharge.
== END 2018-07-07 10:50 | disposition home or self-care (01) ==
LOC: WOUND CARE 08:05
PROVIDERS: ATTEND Surgery
DX: L97.512 Non-pressure chronic ulcer of other part of right foot with fat layer exposed (principal); E11.621 Type 2 diabetes mellitus with foot ulcer; E11.40 Type 2 diabetes mellitus with diabetic neuropathy, unspecified; E11.65 Type 2 diabetes mellitus with hyperglycemia; E11.69 Type 2 diabetes mellitus with other specified complication; M86.8X7 Other osteomyelitis, ankle and foot; E11.52 Type 2 diabetes mellitus with diabetic peripheral angiopathy with gangrene; I87.2 Venous insufficiency (chronic) (peripheral); E43 Unspecified severe protein-calorie malnutrition; I10 Essential (primary) hypertension; E78.5 Hyperlipidemia, unspecified; F10.10 Alcohol abuse, uncomplicated; F17.210 Nicotine dependence, cigarettes, uncomplicated; Z71.41 Alcohol abuse counseling and surveillance of alcoholic; Z68.23 Body mass index [BMI] 23.0-23.9, adult; Z79.02 Long term (current) use of antithrombotics/antiplatelets; Z79.899 Other long term (current) drug therapy; Z71.6 Tobacco abuse counseling; Z95.828 Presence of other vascular implants and grafts; Y83.5 Amputation of limb(s) as the cause of abnormal reaction of the patient, or of later complication, without mention of misadventure at the time of the procedure
CPT/HCPCS: 15275; 36416; 82948; A6209; A6222; Q4186; A6250; A6446; Q4187

== ENCOUNTER 2018-07-14 08:05 | Outpatient (CLI) | payer MEDICAID ==
--- NOTE | 2018-07-14 17:15 | NUR ---
Patient ambulated independently from lobby with a walker, accompanied by son. Patient admitted to outpatient wound care clinic for physician visit with Denny Acharya MD. Dressing removed, wound cleansed and lidocaine applied per order. Patient assessed for changes in conditions, medications and medical history. Dr. Acharya at bedside accompanied by RN. Wound assessed and no debridement was done. Plan of care discussed with patient. Dressings placed per MD orders. Patient instructed on the signs and symptoms of infection and to call the Wound Center if any occur or to go to the ED if we are closed: Increased pain in wound Increase in drainage from the wound Redness in the skin surrounding the wound Bleeding from the wound Temperature of 101 or greater Patient instructed that elevated blood sugars delay healing of the wound and can cause further complications including but not limited to amputation of toes or feet. Patient instructed that the weight of their body puts a large amount of pressure on their wounds. This pressure keeps the new tissue from growing and inhibits new blood vessels from forming. Explained that, if they continue to bear weight on a body part that has a wound, the time it takes to heal the wound increases, the wound may get worse or the wound may not heal at all. Patient verbalized understanding of all discharge instructions and plan of care and ambulated independently out to lobby in stable condition with no sign or symptom of distress at time of discharge. Addendum: 07/14/18 at 1717 by Mary Echols RN Amended: Links added.
== END 2018-07-14 10:21 | disposition home or self-care (01) ==
LOC: WOUND CARE 08:05
PROVIDERS: ATTEND Surgery
DX: T87.81 Dehiscence of amputation stump (principal); E11.621 Type 2 diabetes mellitus with foot ulcer; L97.512 Non-pressure chronic ulcer of other part of right foot with fat layer exposed; E11.40 Type 2 diabetes mellitus with diabetic neuropathy, unspecified; E11.65 Type 2 diabetes mellitus with hyperglycemia; E11.69 Type 2 diabetes mellitus with other specified complication; M86.8X7 Other osteomyelitis, ankle and foot; E11.52 Type 2 diabetes mellitus with diabetic peripheral angiopathy with gangrene; I87.2 Venous insufficiency (chronic) (peripheral); E43 Unspecified severe protein-calorie malnutrition; I10 Essential (primary) hypertension; E78.5 Hyperlipidemia, unspecified; I77.1 Stricture of artery; F10.10 Alcohol abuse, uncomplicated; F17.210 Nicotine dependence, cigarettes, uncomplicated; Z71.41 Alcohol abuse counseling and surveillance of alcoholic; Z68.23 Body mass index [BMI] 23.0-23.9, adult; Z79.02 Long term (current) use of antithrombotics/antiplatelets; Z79.899 Other long term (current) drug therapy; Z71.6 Tobacco abuse counseling; Z95.828 Presence of other vascular implants and grafts; Y83.5 Amputation of limb(s) as the cause of abnormal reaction of the patient, or of later complication, without mention of misadventure at the time of the procedure
CPT/HCPCS: 36416; 82948; G0463

== ENCOUNTER 2018-07-25 08:04 | Day surgery (SDC) | payer MEDICAID ==
[2018-07-25] MEDS ORDERED: LIDOcaine/PRILOcaine 5gm cream TP ONE (09:36)
--- NOTE | 2018-07-25 10:30 | NUR ---
Patient ambulated with walker from [facility] and was admitted to outpatient wound care for physician visit with Denny Acharya MD. Dressing removed, wound cleansed and Emla cream applied per order. Patient assessed for changes in conditions, medications and medical history. 900- blood glucose 156. Patient instructed that elevated blood sugars delay healing of the wound and can cause further complications including but not limited to amputation of toes or feet. 954 - Dr. Acharya at bedside accompanied by RN. Wound assessed, time out performed by MD/RN. Wound debrided as detailed in the physician progress/procedure note. Plan of care discussed with patient. Dressings placed per MD orders. Patient instructed on the signs and symptoms of infection and to call the Wound Center if any occur or to go to the ED if we are closed: Increased pain in wound Increase in drainage from the wound Redness in the skin surrounding the wound Bleeding from the wound Temperature of 101 or greater Patient instructed that the weight of their body puts a large amount of pressure on their wounds. This pressure keeps the new tissue from growing and inhibits new blood vessels from forming. Explained that, if they continue to bear weight on a body part that has a wound, the time it takes to heal the wound increases, the wound may get worse or the wound may not heal at all. Patient verbalized understanding of all discharge instructions and plan of care and ambulated with walker out to [facility] in stable condition with no sign or symptom of distress at time of discharge.
== END 2018-07-25 10:17 | disposition home or self-care (01) ==
LOC: WOUND CARE 08:04
PROVIDERS: ATTEND Surgery
DX: T87.81 Dehiscence of amputation stump (principal); E11.621 Type 2 diabetes mellitus with foot ulcer; L97.512 Non-pressure chronic ulcer of other part of right foot with fat layer exposed; E11.40 Type 2 diabetes mellitus with diabetic neuropathy, unspecified; E11.65 Type 2 diabetes mellitus with hyperglycemia; E11.69 Type 2 diabetes mellitus with other specified complication; M86.8X7 Other osteomyelitis, ankle and foot; E11.52 Type 2 diabetes mellitus with diabetic peripheral angiopathy with gangrene; I87.2 Venous insufficiency (chronic) (peripheral); E43 Unspecified severe protein-calorie malnutrition; I10 Essential (primary) hypertension; E78.5 Hyperlipidemia, unspecified; I77.1 Stricture of artery; F10.10 Alcohol abuse, uncomplicated; F17.210 Nicotine dependence, cigarettes, uncomplicated; Z71.41 Alcohol abuse counseling and surveillance of alcoholic; Z68.23 Body mass index [BMI] 23.0-23.9, adult; Z79.02 Long term (current) use of antithrombotics/antiplatelets; Z79.899 Other long term (current) drug therapy; Z71.6 Tobacco abuse counseling; Z95.828 Presence of other vascular implants and grafts; Y83.5 Amputation of limb(s) as the cause of abnormal reaction of the patient, or of later complication, without mention of misadventure at the time of the procedure
CPT/HCPCS: 36416; 82948; 97597; A6021

== ENCOUNTER 2018-08-01 08:05 | Outpatient (CLI) | payer MEDICAID ==
[2018-08-01] MEDS ORDERED: LIDOcaine/PRILOcaine 5gm cream TP ONE (09:43)
--- NOTE | 2018-08-01 10:30 | NUR ---
Patient ambulated independently from [facility] and was admitted to outpatient wound care for physician visit with Denny Acharya MD. Dressing removed, wound cleansed and Emla cream applied per order. Patient assessed for changes in conditions, medications and medical history. 0845 - blood glucose 131. Patient instructed that elevated blood sugars delay healing of the wound and can cause further complications including but not limited to amputation of toes or feet. 1006 - Dr. Acharya at bedside accompanied by RN. Wound assessed assessed by MD; new orders written. Plan of care discussed with patient. Dressings placed per MD orders. Patient instructed on the signs and symptoms of infection and to call the Wound Center if any occur or to go to the ED if we are closed: Increased pain in wound Increase in drainage from the wound Redness in the skin surrounding the wound Bleeding from the wound Temperature of 101 or greater Patient instructed that the weight of their body puts a large amount of pressure on their wounds. This pressure keeps the new tissue from growing and inhibits new blood vessels from forming. Explained that, if they continue to bear weight on a body part that has a wound, the time it takes to heal the wound increases, the wound may get worse or the wound may not heal at all. Patient verbalized understanding of all discharge instructions and plan of care and ambulated independently out to [facility] in stable condition with no sign or symptom of distress at time of discharge.
== END 2018-08-01 10:10 | disposition home or self-care (01) ==
LOC: WOUND CARE 08:05
PROVIDERS: ATTEND Surgery
DX: T87.81 Dehiscence of amputation stump (principal); E11.621 Type 2 diabetes mellitus with foot ulcer; L97.512 Non-pressure chronic ulcer of other part of right foot with fat layer exposed; E11.40 Type 2 diabetes mellitus with diabetic neuropathy, unspecified; E11.65 Type 2 diabetes mellitus with hyperglycemia; E11.69 Type 2 diabetes mellitus with other specified complication; M86.8X7 Other osteomyelitis, ankle and foot; E11.52 Type 2 diabetes mellitus with diabetic peripheral angiopathy with gangrene; I87.2 Venous insufficiency (chronic) (peripheral); E43 Unspecified severe protein-calorie malnutrition; I10 Essential (primary) hypertension; E78.5 Hyperlipidemia, unspecified; I77.1 Stricture of artery; F10.10 Alcohol abuse, uncomplicated; F17.210 Nicotine dependence, cigarettes, uncomplicated; Z71.41 Alcohol abuse counseling and surveillance of alcoholic; Z68.23 Body mass index [BMI] 23.0-23.9, adult; Z79.02 Long term (current) use of antithrombotics/antiplatelets; Z79.899 Other long term (current) drug therapy; Z71.6 Tobacco abuse counseling; Z95.828 Presence of other vascular implants and grafts; Y83.5 Amputation of limb(s) as the cause of abnormal reaction of the patient, or of later complication, without mention of misadventure at the time of the procedure
CPT/HCPCS: 36416; 82948; A6209; G0463; A6021; A6206

== ENCOUNTER 2018-08-09 08:00 | Outpatient (CLI) | payer MEDICAID ==
--- NOTE | 2018-08-09 10:00 | NUR ---
Patient ambulated independently from [facility] and was admitted to outpatient wound care for physician visit with Denny Acharya MD. Dressing removed, wound cleansed. Patient assessed for changes in conditions, medications and medical history. 908 - blood glucose 127. Patient instructed that elevated blood sugars delay healing of the wound and can cause further complications including but not limited to amputation of toes or feet. 957 - Dr. Acharya at bedside accompanied by RN. Wound assessed by and is declared healed. Plan of care discussed with patient. No dressings ordered or placed; patient is discharged from the clinic to follow up on an as needed basis. Patient instructed on the signs and symptoms of infection and to call the Wound Center if any occur or to go to the ED if we are closed: Increased pain in wound Increase in drainage from the wound Redness in the skin surrounding the wound Bleeding from the wound Temperature of 101 or greater Patient instructed that the weight of their body puts a large amount of pressure on their wounds. This pressure keeps the new tissue from growing and inhibits new blood vessels from forming. Explained that, if they continue to bear weight on a body part that has a wound, the time it takes to heal the wound increases, the wound may get worse or the wound may not heal at all. Patient verbalized understanding of all discharge instructions and plan of care and ambulated independently out to [facility] in stable condition with no sign or symptom of distress at time of discharge.
[2018-08-09] MEDS ORDERED: MYCOL15CR TOP (13:46)
== END 2018-08-09 10:03 | disposition home or self-care (01) ==
LOC: WOUND CARE 08:00 → EDSTATUS 08:30 → WOUND CARE 10:03
PROVIDERS: ATTEND Surgery
DX: T87.81 Dehiscence of amputation stump (principal); E11.621 Type 2 diabetes mellitus with foot ulcer; L97.512 Non-pressure chronic ulcer of other part of right foot with fat layer exposed; E11.40 Type 2 diabetes mellitus with diabetic neuropathy, unspecified; E11.65 Type 2 diabetes mellitus with hyperglycemia; E11.69 Type 2 diabetes mellitus with other specified complication; M86.8X7 Other osteomyelitis, ankle and foot; E11.52 Type 2 diabetes mellitus with diabetic peripheral angiopathy with gangrene; I87.2 Venous insufficiency (chronic) (peripheral); E43 Unspecified severe protein-calorie malnutrition; I10 Essential (primary) hypertension; E78.5 Hyperlipidemia, unspecified; I77.1 Stricture of artery; F10.10 Alcohol abuse, uncomplicated; F17.210 Nicotine dependence, cigarettes, uncomplicated; Z71.41 Alcohol abuse counseling and surveillance of alcoholic; Z68.23 Body mass index [BMI] 23.0-23.9, adult; Z79.02 Long term (current) use of antithrombotics/antiplatelets; Z79.899 Other long term (current) drug therapy; Z71.6 Tobacco abuse counseling; Z95.828 Presence of other vascular implants and grafts; Y83.5 Amputation of limb(s) as the cause of abnormal reaction of the patient, or of later complication, without mention of misadventure at the time of the procedure
CPT/HCPCS: 36416; 82948; G0463

== ENCOUNTER 2018-10-25 05:57 | Day surgery (SDC) | payer MEDICAID ==
[2018-10-19 09:19] LABS: BASOPHILS # (AUTO) 0.1 X10'3 (0-0.2); BASOPHILS % (AUTO) 1.1 % (0-1); EOSINOPHILS # (AUTO) 0.2 X10'3 (0-0.9); EOSINOPHILS % (AUTO) 2.4 % (0-6); HEMATOCRIT 36.4 % (42.0-52.0); HEMOGLOBIN 12.3 g/dl (14.0-17.9); LYMPHOCYTES # (AUTO) 2.7 X10'3 (1.1-4.8); LYMPHOCYTES % (AUTO) 35.9 % (21-51); MEAN CORPUSCULAR HEMOGLOBIN 29.5 PG (27.0-31.0); MEAN CORPUSCULAR HGB CONC 33.9 g/dL (33.0-36.5); MEAN PLATELET VOLUME 9.3 FL (7.4-10.4); MONOCYTES # (AUTO) 0.8 X10'3 (0-0.9); MONOCYTES % (AUTO) 10.3 % (2-12); NEUTROPHILS # (AUTO) 3.8 X10'3 (1.8-7.7); NEUTROPHILS % (AUTO) 50.3 % (42-75); PLATELET COUNT 198 X10'3 (140-440); RED BLOOD COUNT 4.18 X10'6 (4.70-6.10); RED CELL DISTRIBUTION WIDTH 12.5 % (11.5-14.5); WHITE BLOOD COUNT 7.5 X10'3 (4.5-11.0)
[2018-10-19 09:32] LABS: GLUCOSE 140 MG/DL (70-104)
[2018-10-19 09:33] LABS: ALBUMIN 4.1 G/DL (3.4-5.0); ANION GAP 7 (8-16); BLOOD UREA NITROGEN 16 MG/DL (7-18); CALCIUM 9.8 MG/DL (8.5-10.1); CHLORIDE 105 MMOL/L (99-107); POTASSIUM 4.2 MMOL/L (3.5-5.1); SODIUM 141 MMOL/L (135-145); TOTAL CARBON DIOXIDE 28.6 MMOL/L (24-32); eGFR 76 ML/MIN
[2018-10-19 09:37] LABS: PARTIAL THROMBOPLASTIN TIME 28 SECONDS (22-32)
[~2018-10-25] VITALS: Ht 162.6 cm; Wt 67.7 kg
[2018-10-25] VITALS (12 sets, daily range): BP systolic 117–167; BP diastolic 61–95
[~2018-10-25 05:57] MED LIST changes: +MYCOL15CR TOP
[2018-10-25] MEDS ORDERED: diphenhydrAMINE 25mg capsule PO PRN (06:20)
[2018-10-25] MEDS ORDERED: normal saline 1,000 ML IV SCH (06:20)
[2018-10-25] MEDS ORDERED: LORazepam 0.5 MG tablet PO PRN (06:20)
[2018-10-25] MEDS ORDERED: METF-950 PO (07:08)
[2018-10-25] MEDS ORDERED: ATOR40TA72 PO (07:08)
[2018-10-25] MEDS ORDERED: ASPI81TA52 PO (07:09)
[2018-10-25] MEDS ORDERED: LISI-604 PO (07:09)
[2018-10-25] MEDS ORDERED: CLOP75TA15 PO (07:09)
[2018-10-25] MEDS ORDERED: METO25TA6 PO (07:09)
[2018-10-25] MEDS ORDERED: iohexol 350MG/ML 100ml bottle IV ONE (09:03)
[2018-10-25] MEDS ORDERED: fentaNYL/PF 50MCG/1 ML 2ML syringe ONE (09:03)
[2018-10-25] MEDS ORDERED: midazolam 2 mg/2 ml injection ONE (09:03)
[2018-10-25] MEDS ORDERED: LIDOcaine 1% (10mg/ml)w/preservative injection 20ml MDV ONE (09:03)
[2018-10-25] MEDS ORDERED: proCHLORperazine 10 MG/2 ml inj IV PRN (10:15)
[2018-10-25] MEDS ORDERED: OXAZEpam 15mg capsule PO PRN (10:15)
[2018-10-25] MEDS ORDERED: nitroGLYCERIN 0.4mg SUBLingual tab SL PRN (10:15)
[2018-10-25] MEDS ORDERED: ondansetron/PF 4mg/2ml inj IV PRN (10:15)
== END 2018-10-25 14:00 | disposition home or self-care (01) ==
LOC: SSTAY O 05:57
PROVIDERS: ATTEND Internal Medicine Interventional Cardiology
DX: I25.10 Atherosclerotic heart disease of native coronary artery without angina pectoris (principal); E78.5 Hyperlipidemia, unspecified; E11.51 Type 2 diabetes mellitus with diabetic peripheral angiopathy without gangrene; I10 Essential (primary) hypertension; Z87.891 Personal history of nicotine dependence; I08.0 Rheumatic disorders of both mitral and aortic valves
CPT/HCPCS: 36415; 80048; 82948; 85025; 85610; 85730; 93005; 93458; 99152; A6257; C1769; J1644; J2001; J2250; J3010; J7030; Q0163; Q9967; 99153; A4620

== ENCOUNTER 2019-02-09 05:26 | Inpatient (IN) | payer MEDICAID ==
[2019-02-07 16:27] LABS: BASOPHILS # (AUTO) 0.1 X10'3 (0-0.2); BASOPHILS % (AUTO) 0.8 % (0-1); EOSINOPHILS # (AUTO) 0.2 X10'3 (0-0.9); EOSINOPHILS % (AUTO) 2.4 % (0-6); LYMPHOCYTES % (AUTO) 39.1 % (21-51); MEAN CORPUSCULAR HEMOGLOBIN 29.3 PG (27.0-31.0); MEAN CORPUSCULAR HGB CONC 33.5 g/dL (33.0-36.5); MEAN CORPUSCULAR VOLUME 87.6 FL (78-98); MEAN PLATELET VOLUME 9.4 FL (7.4-10.4); MONOCYTES # (AUTO) 0.8 X10'3 (0-0.9); MONOCYTES % (AUTO) 10.1 % (2-12); NEUTROPHILS # (AUTO) 3.6 X10'3 (1.8-7.7); NEUTROPHILS % (AUTO) 47.6 % (42-75); PRE OP HEMATOCRIT 37.2 % (42.0-52.0); PRE OP HEMOGLOBIN 12.5 g/dL (14.0-17.9); PRE OP PLATELET COUNT 190 X10'3 (140-440); RED BLOOD COUNT 4.25 X10'6 (4.70-6.10); RED CELL DISTRIBUTION WIDTH 12.5 % (11.5-14.5)
[2019-02-07 16:40] LABS: ALBUMIN 4.1 G/DL (3.4-5.0); ALBUMIN/GLOBULIN RATIO 0.9 (1.1-1.5); ALKALINE PHOSPHATASE 73 IU/L (46-116); BLOOD UREA NITROGEN 19 MG/DL (7-18); BUN/CREATININE RATIO 18.3 (5.4-32.0); CALCIUM 9.2 MG/DL (8.5-10.1); CHLORIDE 106 MMOL/L (99-107); CREATININE 1.04 MG/DL (0.60-1.10); PRE OP ALT 29 U/L (30-65); PRE OP ANION GAP 7 (8-16); PRE OP AST 18 U/L (10-37); PRE OP BILIRUB, TOTAL 0.3 MG/DL (0.0-1.0); PRE OP GLUCOSE 153 MG/DL (70-104); PRE OP POTASSIUM 4.3 MMOL/L (3.4-5.1); PRE OP SODIUM 141 MMOL/L (135-145); TOTAL CARBON DIOXIDE 27.9 MMOL/L (24-32); TOTAL PROTEIN 8.5 G/DL (6.4-8.2); eGFR 72 ML/MIN
[2019-02-07 16:46] LABS: CLARITY,URINE CLEAR (Clear); COLOR,URINE YELLOW (Yellow); GLUCOSE, URINE NEGATIVE (Neg); KETONES,URINE NEGATIVE (Neg); LEUKOCYTE ESTERASE ,URINE NEGATIVE (Neg); NITRITES, URINE NEGATIVE (Neg); OCCULT BLOOD,URINE TRACE-INTACT (Neg); PH,URINE 6.5 (4.8-8.0); PROTEIN,URINE NEGATIVE (Neg); UROBILINOGEN,URINE 0.2 E.U/dL (0.2-1.0)
[2019-02-07 16:47] LABS: UA COLLECTION TYPE CLN CATCH MIDSTREAM
[2019-02-07 16:58] LABS: WBC,URINE NONE SEEN /HPF (0-4)
[2019-02-07 16:59] LABS: BACTERIA,URINE NONE SEEN /HPF (Neg); RBC,URINE 0-2 /HPF (0-2); SQUAMOUS EPITHELIAL CELL,UR NONE SEEN /LPF (FEW)
[2019-02-07 17:00] LABS: PRE OP INR 1.1 INR; PRE OP PROTIME 10.7 SECONDS (9.0-12.0)
[~2019-02-09] VITALS: Ht 162.6 cm; Wt 66.2 kg
[2019-02-09] VITALS (29 sets, daily range): BP systolic 96–170; BP diastolic 45–80
[~2019-02-09 05:26] MED LIST changes: -ASPI-1071 PO; +ASPI81TA52 PO; -ATOR20TA66 PO; +ATOR40TA72 PO; +CLOP75TA15 PO; -CLOP75TA35 PO; -COL100C PO; +METF-950 PO; -METF500T PO; -MULT-1179 PO; +MULT1TAB74 PO; -MYCOL15CR TOP; +VITAMIN B1 PO
[2019-02-09] MEDS ORDERED: clindamycin-Cleocin 900mg/D5W 50 ML IV ONE (05:30)
[2019-02-09] MEDS ORDERED: famotidine 20mg tablet PO ONE (05:30)
[2019-02-09] MEDS ORDERED: DOCUMENT DATE & TIME OF BETA-BLOCKER PO ONE (05:30)
[2019-02-09] MEDS ORDERED: ringers solution, lacted 1,000 ML IV SCH ×2 (05:30→07:37)
[2019-02-09] MEDS ORDERED: LIDOcaine 1% (10mg/ml) 2ml vial ONE (05:59)
[2019-02-09] MEDS ORDERED: heparin 10,000 units/1 ML INJ ONE ×2 (06:53→14:17)
[2019-02-09] MEDS ORDERED: iohexol 300 MG/1 ML 50ml polymer ONE ×3 (06:53→10:57)
[2019-02-09] MEDS ORDERED: ceFAZolin 1000mg inj ONE ×2 (07:20→14:16)
[2019-02-09] MEDS ORDERED: LIDOcaine 2% (20mg/ml) 5ml vial ONE (07:32)
[2019-02-09] MEDS ORDERED: MIDAZolam 5mg/5ml vial ONE (07:32)
[2019-02-09] MEDS ORDERED: propofol inj 20 ML IV ONE ×2 (07:32→14:54)
[2019-02-09] MEDS ORDERED: fentaNYL /PF 50mcg/ml 5ml ampule ONE (07:32)
[2019-02-09] MEDS ORDERED: rocuronium 10mg/ml inj IV ONE (07:33)
[2019-02-09] MEDS ORDERED: neostigmine methylsulfate 1 MG/ML 10ml vial ONE (07:38)
[2019-02-09] MEDS ORDERED: ondansetron/PF 4mg/2ml inj ONE (07:38)
[2019-02-09] MEDS ORDERED: dexamethasone sod phosphate 10mg/ml inj ONE (07:38)
[2019-02-09] MEDS ORDERED: desflurane 240ml liquid inh. IH ONE ×2 (07:38→14:53)
[2019-02-09] MEDS ORDERED: proCHLORperazine 10 MG/2 ml inj IV PRN (07:40)
[2019-02-09] MEDS ORDERED: meperidine/PF 25mg/ml syringe IV PRN ×3 (07:40)
[2019-02-09] MEDS ORDERED: morphine 4 MG/ML inj SYRINge IV PRN (07:40)
[2019-02-09] MEDS ORDERED: ondansetron/PF 4mg/2ml inj IV PRN ×2 (07:40→11:40)
[2019-02-09] MEDS ORDERED: heparin 1,000unit/ml 10ml vial 10 ML ONE (11:28)
[2019-02-09] MEDS ORDERED: Potassium Cl inj 20 MEQ in ringers solution, lacted 1,000 ML IV SCH (11:37)
[2019-02-09] MEDS ORDERED: HYDROmorphone 1 mg/ml syringe IV PRN (11:40)
[2019-02-09] MEDS: morphine 4 MG/ML inj SYRINge IV PRN ×2 (11:55→12:18)
--- NOTE | 2019-02-09 12:50 | NUR ---
Patient arrived from recovery alert and orientated. vitals stable, patient's R. groin incision swollen and firm, marked with black felt pen. Dr Betancourt notified orders received.
[2019-02-09 12:56] LABS: PARTIAL THROMBOPLASTIN TIME 76 SECONDS (22-32)
[2019-02-09] MEDS ORDERED: protamine sulf. 10mg/ml inj. IV STA (13:12)
[2019-02-09] MEDS ORDERED: protamine sulf. 10mg/ml inj. IV ONE (13:15)
[2019-02-09] MEDS: vancomycin/NS 1 GM ADD-VANTAGE 250 ML IV SCH (13:35)
[2019-02-09 13:37] LABS: HEMATOCRIT 31.6 % (42.0-52.0); HEMOGLOBIN 10.9 g/dl (14.0-17.9); MEAN CORPUSCULAR HGB CONC 34.5 g/dL (33.0-36.5); MEAN CORPUSCULAR VOLUME 87.1 FL (78-98); MEAN PLATELET VOLUME 9.5 FL (7.4-10.4); PLATELET COUNT 162 X10'3 (140-440); RED BLOOD COUNT 3.63 X10'6 (4.70-6.10); RED CELL DISTRIBUTION WIDTH 12.8 % (11.5-14.5); WHITE BLOOD COUNT 10.1 X10'3 (4.5-11.0)
[2019-02-09 13:45] LABS: PARTIAL THROMBOPLASTIN TIME 38 SECONDS (22-32)
--- NOTE | 2019-02-09 13:50 | NUR ---
patient went back to recovery to await take back to OR
--- NOTE | 2019-02-09 14:00 | NUR ---
RECEIVED BACK TO PACU TO AWAIT RETURN TO SURGERY. HEMATOMA NOTED IN RIGHT GROIN AREA ALONG WITH PROVENA MALFUNCTIONING, NOTED TO HAVE SUCTION LEAK. PT IS AWAKE AND STABLE ADVISED OF REASON FOR RETURN TO OR. DR GOULD IN TO EXAMINE.
--- NOTE | 2019-02-09 14:50 | NUR ---
RETURN TO OR ACCOMPANIED BY ANESTHESIA AND RIDING INSTRUCTOR, STABLE WHILE IN PACU.
[2019-02-09] MEDS ORDERED: ePHEDrine 50MG/ML INJ. ONE (14:53)
[2019-02-09] MEDS ORDERED: fentaNYL/PF 50MCG/1 ML 2ML syringe ONE (14:53)
[2019-02-09] MEDS ORDERED: midazolam 2 mg/2 ml injection ONE (14:53)
[2019-02-09] MEDS ORDERED: LIDOcaine 1%/PF 5ML 10 MG/ML VIAL ONE (14:54)
--- NOTE | 2019-02-09 15:53 | NUR ---
Received from OR via ICU BED , accompanied by Anesthesiologist YVONNE and report given by Anesthesiolgist. PATIENT WITH 18G PIV IN PLACE RUNNING LR AT 100. DENIES PAIN. RIGHT INGUINAL AREA IS CDI. + DORSALIS PEDIS. ISAAC BOWMAN DONNED TO LOWER EXTREMITIES. 10L MASK WITH 100% SATURATIONS. Addendum: 02/09/19 at 1607 by Carlos Alberto Mane RN, RN Amended: Links added.
--- NOTE | 2019-02-09 16:23 | NUR ---
ALL DC CRITERIA HAS BEEN MET. RIGHT INGUINAL DRESSING/ PROVENA ARE INTACT AND MAINTAINING SUCTION WITH NO LEAKS. + DORSALIS PEDIS. VSS. DENIES PAIN. DRINKING WATER. RESTING COMFORTABLY. GLASSES ON AND TAKEN TO THE ICU WHERE I HOOKED PATIENT TO ICU MONITOR. TREVON LAWTON GIVEN REPORT AND IS NOW PRESENT TO ATTEND TO THE PATIENT. Addendum: 02/09/19 at 1642 by Carlos Alberto Gorman - TREVON LESTER Amended: Links added.
--- NOTE | 2019-02-09 16:30 | NUR ---
Patient returned from Recovery room. Incision site with s/s of complication. Initial assessment done 2 hours ago the same with the exception of the hematoma to the right groin no longer there.
[2019-02-09] MEDS: Potassium Cl inj 20 MEQ in ringers solution, lacted 1,000 ML IV SCH (17:12)
[2019-02-09] MEDS ORDERED: vancomycin/NS 1 GM ADD-VANTAGE 250 ML IV SCH (18:00)
--- NOTE | 2019-02-09 18:30 | NUR ---
Problems reprioritized. Patient report given, questions answered & plan of care reviewed with oncoming shift.
[2019-02-09] MEDS: HYDROcodone/acetaminophen 10/325mg tab PO PRN (20:17)
[2019-02-10] VITALS (29 sets, daily range): BP systolic 88–168; BP diastolic 33–79
[2019-02-10] MEDS: vancomycin/NS 1 GM ADD-VANTAGE 250 ML IV SCH ×2 (00:12→14:00)
[2019-02-10] MEDS: HYDROcodone/acetaminophen 10/325mg tab PO PRN ×2 (00:26→20:44)
[2019-02-10] MEDS: Potassium Cl inj 20 MEQ in ringers solution, lacted 1,000 ML IV SCH (02:13)
[2019-02-10 04:56] LABS: ALBUMIN 2.6 G/DL (3.4-5.0); ANION GAP 6 (8-16); BLOOD UREA NITROGEN 18 MG/DL (7-18); BUN/CREATININE RATIO 17.1 (5.4-32.0); CALCIUM 7.9 MG/DL (8.5-10.1); CHLORIDE 109 MMOL/L (99-107); CREATININE 1.05 MG/DL (0.60-1.10); GLUCOSE 180 MG/DL (70-104); POTASSIUM 4.4 MMOL/L (3.5-5.1); SODIUM 142 MMOL/L (135-145); TOTAL CARBON DIOXIDE 27.2 MMOL/L (24-32); eGFR 72 ML/MIN
[2019-02-10 05:02] LABS: BASOPHILS % (AUTO) 0.5 % (0-1); EOSINOPHILS % (AUTO) 0.2 % (0-6); HEMOGLOBIN 7.4 g/dl (14.0-17.9); LYMPHOCYTES # (AUTO) 2.2 X10'3 (1.1-4.8); LYMPHOCYTES % (AUTO) 30.3 % (21-51); MEAN CORPUSCULAR HEMOGLOBIN 29.8 PG (27.0-31.0); MEAN CORPUSCULAR HGB CONC 34.3 g/dL (33.0-36.5); MEAN CORPUSCULAR VOLUME 86.8 FL (78-98); MEAN PLATELET VOLUME 9.4 FL (7.4-10.4); MONOCYTES # (AUTO) 1.1 X10'3 (0-0.9); MONOCYTES % (AUTO) 14.5 % (2-12); NEUTROPHILS % (AUTO) 54.5 % (42-75); PLATELET COUNT 129 X10'3 (140-440); RED CELL DISTRIBUTION WIDTH 12.6 % (11.5-14.5); WHITE BLOOD COUNT 7.4 X10'3 (4.5-11.0)
[2019-02-10 05:11] LABS: HEMATOCRIT 21.7 % (42.0-52.0)
--- NOTE | 2019-02-10 06:12 | NUR ---
Rec'd critical H/H from lab (7.4/21.7), down from 10.9/31.6 at 13:26 on 02/09/19. That was drawn after the original procedure, but before pt was taken back to OR to evacuate a large hematoma. Pt's blood pressures have been a little soft overnight (SBP's in 90's), Dr. Alejandre was called and did not want to transfuse at this time. 2 units of PRBC's are on hold from surgery, but the type & cross was 02/07/19 & will at 15:47 today 02/10/19.
--- NOTE | 2019-02-10 06:30 | NUR ---
Patient in room ICU 2039. I have received report from TREVON Valencia and had the opportunity to ask questions and assume patient care.
[2019-02-10] MEDS: clopidogrel 75mg tablet PO SCH (08:19)
--- NOTE | 2019-02-10 08:30 | NUR ---
pt is awake and alert, oriented x4, HR 115, NSR with ST depression, 12 lead EKG ordered. pt denies CP, but states he could feel his heart going fast. troponin ordered.
--- NOTE | 2019-02-10 10:15 | NUR ---
pt c/o cp, sinus tachy, BP 141/68. pending troponin result. Dr. Alejandre called and notified regarding pt condition, 2U PRBC transfusion order received. Dr. Go completed blood consent with physician signature. updated pt and family on plan of care.
[2019-02-10] MEDS ORDERED: THIA100T66 PO (11:26)
[2019-02-10] MEDS ORDERED: aminophylline 250mg/10ml inj. IV PRN ×2 (14:20→15:20)
[2019-02-10] MEDS ORDERED: regadenoson 0.4mg/5ml syringe IV ONE ×2 (14:20→15:20)
[2019-02-10] MEDS ORDERED: metoprolol tartrate 1mg/ml inj IV PRN ×2 (14:20→15:20)
[2019-02-10] MEDS ORDERED: nitroGLYCERIN 0.4mg SUBLingual tab SL PRN ×2 (14:20→15:20)
--- NOTE | 2019-02-10 14:30 | NUR ---
pt is receiving 2U PRBC, no transfusion reactions noted. Dr. Alejandre arrived on unit and assessed pt, updated on pt condition, cardiology record reviewed and discussed with patient. stress test order for tomorrow, repeat troponin. will notified Dr. Alejandre with hypotension.
[2019-02-10 18:22] LABS: HEMOGLOBIN 10.9 g/dl (14.0-17.9); MEAN CORPUSCULAR HEMOGLOBIN 29.8 PG (27.0-31.0); MEAN CORPUSCULAR VOLUME 87.5 FL (78-98); MEAN PLATELET VOLUME 9.3 FL (7.4-10.4); PLATELET COUNT 139 X10'3 (140-440); RED BLOOD COUNT 3.65 X10'6 (4.70-6.10); RED CELL DISTRIBUTION WIDTH 13.5 % (11.5-14.5); WHITE BLOOD COUNT 7.7 X10'3 (4.5-11.0)
--- NOTE | 2019-02-10 18:39 | NUR ---
Problems reprioritized. Patient report given, questions answered & plan of care reviewed with TREVON Valencia.
[2019-02-10] MEDS: lactobacillus rhamnosus 10,000 MMU CELLS/CAPSULE PO SCH (20:44)
[2019-02-10] MEDS ORDERED: VANCOMYCIN LEVEL IV ONE (23:30)
[2019-02-11] VITALS (24 sets, daily range): BP systolic 110–170; BP diastolic 52–85
[2019-02-11] MEDS: vancomycin/NS 1 GM ADD-VANTAGE 250 ML IV SCH
[2019-02-11 02:58] LABS: ALBUMIN 2.9 G/DL (3.4-5.0); ANION GAP 7 (8-16); BLOOD UREA NITROGEN 15 MG/DL (7-18); BUN/CREATININE RATIO 16.9 (5.4-32.0); CALCIUM 8.3 MG/DL (8.5-10.1); CHLORIDE 108 MMOL/L (99-107); CREATININE 0.89 MG/DL (0.60-1.10); GLUCOSE 120 MG/DL (70-104); SODIUM 144 MMOL/L (135-145); TOTAL CARBON DIOXIDE 29.3 MMOL/L (24-32); TROPONIN I 0.49 NG/ML (0.0-0.05); eGFR 87 ML/MIN
[2019-02-11 03:00] LABS: BASOPHILS % (AUTO) 0.6 % (0-1); EOSINOPHILS # (AUTO) 0.2 X10'3 (0-0.9); EOSINOPHILS % (AUTO) 2.1 % (0-6); HEMOGLOBIN 9.9 g/dl (14.0-17.9); LYMPHOCYTES # (AUTO) 2.9 X10'3 (1.1-4.8); LYMPHOCYTES % (AUTO) 37.4 % (21-51); MEAN CORPUSCULAR HEMOGLOBIN 30.1 PG (27.0-31.0); MEAN CORPUSCULAR HGB CONC 34.3 g/dL (33.0-36.5); MEAN CORPUSCULAR VOLUME 87.7 FL (78-98); MEAN PLATELET VOLUME 9.5 FL (7.4-10.4); MONOCYTES # (AUTO) 1.2 X10'3 (0-0.9); MONOCYTES % (AUTO) 16.1 % (2-12); NEUTROPHILS # (AUTO) 3.4 X10'3 (1.8-7.7); NEUTROPHILS % (AUTO) 43.8 % (42-75); PLATELET COUNT 132 X10'3 (140-440); RED CELL DISTRIBUTION WIDTH 13.5 % (11.5-14.5); WHITE BLOOD COUNT 7.7 X10'3 (4.5-11.0)
--- NOTE | 2019-02-11 06:29 | NUR ---
Patient in room ICU 2039. I have received report from Annie LESTER and had the opportunity to ask questions and assume patient care.
[2019-02-11] MEDS: lactobacillus rhamnosus 10,000 MMU CELLS/CAPSULE PO SCH ×2 (08:39→20:32)
[2019-02-11] MEDS: clopidogrel 75mg tablet PO SCH (08:39)
--- NOTE | 2019-02-11 09:10 | NUR ---
Lexiscan ordered, serial 8 hr troponins are trending upward. Upon routine cardiac consultation with [employer] Provider Relations Advocate Dr. King he has requested cancelling the Lexiscan. Recent surgeries, current labs, and diagnostics including cath result from 10/25 provided during consultation.
--- NOTE | 2019-02-11 09:11 | NUR ---
Received call from Miladis LESTER in Nuc med, relayed that Dr. King cancelled Teresitaan.
[2019-02-11] MEDS: VANCOmycin 1250MG/NS 250ml Bag 250 ML IV SCH (12:32)
--- NOTE | 2019-02-11 16:45 | NUR ---
Dr. Alejandre arrived on unit, curious as to why Lexiscan was cancelled. Made him aware that Dr. King didn't see it necessary to perform Lexiscan and cancelled order. This nurse understood that Dr. King would communicate this information to Dr. Alejandre however did not. Received orders for patient to transfer to surgical unit and to get up and walk.
--- NOTE | 2019-02-11 18:46 | NUR ---
Problems reprioritized. Patient report given, questions answered & plan of care reviewed with Vivien LESTER.
--- NOTE | 2019-02-11 18:46 | NUR ---
Patient in room ICU 2039. I have received report from TREVON goldberg and had the opportunity to ask questions and assume patient care.
[2019-02-12] VITALS (7 sets, daily range): BP systolic 88–171; BP diastolic 53–90
[2019-02-12] MEDS: VANCOmycin 1250MG/NS 250ml Bag 250 ML IV SCH ×2 (00:06→12:43)
--- NOTE | 2019-02-12 02:55 | NUR ---
Patient in room [facility] 354. I have received report from Vivien in ICU and had the opportunity to ask questions and will assume patient care upon arrival to the floor. Addendum: 02/12/19 at 0339 by Luann Rubio RN Amended: Links added.
--- NOTE | 2019-02-12 02:55 | NUR ---
Problems reprioritized. Patient report given, questions answered & plan of care reviewed with gate clerk Luann. Patient being transferred by myself and jimi Cantrell with all of his belongings and chart.
--- NOTE | 2019-02-12 03:10 | NUR ---
pt arrived in ICU bed to room 354a and transferred by 4 Rn's into bed and pt assessed and put on tele number 10. noted no toes to right foot and bounding pulse present and doppler done to weak posterior tibial and pedal pulse present felt and auscultated louder. pt assisted up to bedside to void in urinal then back to bed. tolerated well.
--- NOTE | 2019-02-12 03:56 | NUR ---
noted assessment done by Marine Scientist. he is no longer on a [facility] bed but a [employer] bed now. pt a/o pleasant. call light in place and orientated to the unit. no complaints on pain or discomfort at this time. pt has 2 peripheral iv's #18 right .wrist and 20 in left forearm Addendum: 02/12/19 at 0404 by Luann Rubio RN Amended: Links added.
--- NOTE | 2019-02-12 04:37 | NUR ---
resting without complaints.
[2019-02-12 05:55] LABS: BASOPHILS # (AUTO) 0.1 X10'3 (0-0.2); BASOPHILS % (AUTO) 0.7 % (0-1); EOSINOPHILS # (AUTO) 0.2 X10'3 (0-0.9); HEMATOCRIT 31.7 % (42.0-52.0); HEMOGLOBIN 10.8 g/dl (14.0-17.9); LYMPHOCYTES # (AUTO) 2.1 X10'3 (1.1-4.8); LYMPHOCYTES % (AUTO) 27.1 % (21-51); MEAN CORPUSCULAR HEMOGLOBIN 29.9 PG (27.0-31.0); MEAN CORPUSCULAR HGB CONC 34.2 g/dL (33.0-36.5); MEAN CORPUSCULAR VOLUME 87.4 FL (78-98); MONOCYTES # (AUTO) 1.1 X10'3 (0-0.9); MONOCYTES % (AUTO) 14.3 % (2-12); NEUTROPHILS # (AUTO) 4.3 X10'3 (1.8-7.7); NEUTROPHILS % (AUTO) 55.9 % (42-75); PLATELET COUNT 147 X10'3 (140-440); RED BLOOD COUNT 3.62 X10'6 (4.70-6.10); RED CELL DISTRIBUTION WIDTH 13.6 % (11.5-14.5); WHITE BLOOD COUNT 7.6 X10'3 (4.5-11.0)
[2019-02-12 06:11] LABS: ANION GAP 9 (8-16); BLOOD UREA NITROGEN 12 MG/DL (7-18); BUN/CREATININE RATIO 16.7 (5.4-32.0); CALCIUM 9.5 MG/DL (8.5-10.1); CHLORIDE 107 MMOL/L (99-107); CREATININE 0.72 MG/DL (0.60-1.10); GLUCOSE 149 MG/DL (70-104); POTASSIUM 3.7 MMOL/L (3.5-5.1); SODIUM 143 MMOL/L (135-145); TOTAL CARBON DIOXIDE 26.6 MMOL/L (24-32); eGFR > 90 ML/MIN
--- NOTE | 2019-02-12 06:30 | NUR ---
Patient in room [facility] 354. I have received report from Luann LESTER and had the opportunity to ask questions and assume patient care.
--- NOTE | 2019-02-12 06:35 | NUR ---
Problems reprioritized. Patient report given, questions answered & plan of care reviewed with Andres Motta. Addendum: 02/12/19 at 0635 by Luann Rubio RN Amended: Links added.
[2019-02-12] MEDS ORDERED: MESSAGE TO NURSING PO ONE (07:00)
[2019-02-12] MEDS: lactobacillus rhamnosus 10,000 MMU CELLS/CAPSULE PO SCH ×2 (08:11→20:07)
[2019-02-12] MEDS: clopidogrel 75mg tablet PO SCH (08:11)
--- NOTE | 2019-02-12 18:30 | NUR ---
Problems reprioritized. Patient report given, questions answered & plan of care reviewed with Pat RN.
[2019-02-12] MEDS: metFORMIN 500mg tablet PO SCH (20:07)
[2019-02-12] MEDS: metoprolol tartrate 25mg tablet PO SCH (20:08)
[2019-02-12] MEDS ORDERED: VANCOMYCIN LEVEL IV ONE (23:30)
[2019-02-13] VITALS: BP 133/68
[2019-02-13] MEDS: VANCOmycin 1250MG/NS 250ml Bag 250 ML IV SCH ×2 (00:19→13:10)
[2019-02-13 06:04] LABS: BASOPHILS % (AUTO) 0.6 % (0-1); EOSINOPHILS # (AUTO) 0.3 X10'3 (0-0.9); EOSINOPHILS % (AUTO) 3.8 % (0-6); HEMOGLOBIN 10.4 g/dl (14.0-17.9); LYMPHOCYTES # (AUTO) 2.2 X10'3 (1.1-4.8); LYMPHOCYTES % (AUTO) 30.3 % (21-51); MEAN CORPUSCULAR HEMOGLOBIN 30.5 PG (27.0-31.0); MEAN CORPUSCULAR HGB CONC 34.8 g/dL (33.0-36.5); MEAN CORPUSCULAR VOLUME 87.7 FL (78-98); MEAN PLATELET VOLUME 9.1 FL (7.4-10.4); MONOCYTES % (AUTO) 14.3 % (2-12); NEUTROPHILS # (AUTO) 3.7 X10'3 (1.8-7.7); PLATELET COUNT 156 X10'3 (140-440); RED BLOOD COUNT 3.42 X10'6 (4.70-6.10); RED CELL DISTRIBUTION WIDTH 13.5 % (11.5-14.5); WHITE BLOOD COUNT 7.3 X10'3 (4.5-11.0)
[2019-02-13 06:24] LABS: ANION GAP 9 (8-16); BLOOD UREA NITROGEN 15 MG/DL (7-18); BUN/CREATININE RATIO 19.2 (5.4-32.0); CALCIUM 8.8 MG/DL (8.5-10.1); CHLORIDE 108 MMOL/L (99-107); CREATININE 0.78 MG/DL (0.60-1.10); GLUCOSE 144 MG/DL (70-104); POTASSIUM 4.1 MMOL/L (3.5-5.1); SODIUM 142 MMOL/L (135-145); TOTAL CARBON DIOXIDE 24.6 MMOL/L (24-32); eGFR > 90 ML/MIN
--- NOTE | 2019-02-13 06:30 | NUR ---
Patient in room [facility] 356. I have received report from Pat RN and had the opportunity to ask questions and assume patient care.
[2019-02-13 08:00] VITALS: BP 159/71
[2019-02-13] MEDS: metoprolol tartrate 25mg tablet PO SCH ×2 (08:06→20:08)
[2019-02-13] MEDS: lisinopril 5mg tablet PO SCH (08:06)
[2019-02-13] MEDS: metFORMIN 500mg tablet PO SCH ×2 (08:07→20:08)
[2019-02-13] MEDS: clopidogrel 75mg tablet PO SCH (08:07)
[2019-02-13] MEDS: multivitamins, therapeutics tablet PO SCH (08:07)
[2019-02-13] MEDS: thiamine 100mg tablet PO SCH (08:08)
[2019-02-13] MEDS: aspirin 81mg tablet.DR PO SCH (08:08)
[2019-02-13] MEDS: lactobacillus rhamnosus 10,000 MMU CELLS/CAPSULE PO SCH ×2 (08:08→20:07)
[2019-02-13] MEDS: atorvastatin 20mg tablet PO SCH (08:09)
[2019-02-13 11:00] VITALS: BP 120/55
--- NOTE | 2019-02-13 18:30 | NUR ---
Problems reprioritized. Patient report given, questions answered & plan of care reviewed with Ivy LESTER.
--- NOTE | 2019-02-13 18:35 | NUR ---
Patient in room [facility] 356. I have received report from EVERARDO LESTER and had the opportunity to ask questions and assume patient care.
[2019-02-13 19:00] VITALS: BP 146/66
[2019-02-14] VITALS: BP 145/69
[2019-02-14] MEDS: VANCOmycin 1250MG/NS 250ml Bag 250 ML IV SCH ×2 (00:19→12:52)
[2019-02-14 05:36] LABS: BASOPHILS # (AUTO) 0.1 X10'3 (0-0.2); BASOPHILS % (AUTO) 0.7 % (0-1); EOSINOPHILS # (AUTO) 0.3 X10'3 (0-0.9); HEMATOCRIT 29.8 % (42.0-52.0); HEMOGLOBIN 10.2 g/dl (14.0-17.9); LYMPHOCYTES % (AUTO) 24.8 % (21-51); MEAN CORPUSCULAR HEMOGLOBIN 29.8 PG (27.0-31.0); MEAN CORPUSCULAR HGB CONC 34.4 g/dL (33.0-36.5); MEAN CORPUSCULAR VOLUME 86.8 FL (78-98); MEAN PLATELET VOLUME 8.4 FL (7.4-10.4); MONOCYTES # (AUTO) 1.1 X10'3 (0-0.9); MONOCYTES % (AUTO) 13.7 % (2-12); NEUTROPHILS # (AUTO) 4.5 X10'3 (1.8-7.7); NEUTROPHILS % (AUTO) 56.8 % (42-75); PLATELET COUNT 183 X10'3 (140-440); RED BLOOD COUNT 3.44 X10'6 (4.70-6.10); RED CELL DISTRIBUTION WIDTH 13.2 % (11.5-14.5)
[2019-02-14 05:53] LABS: ANION GAP 8 (8-16); BLOOD UREA NITROGEN 16 MG/DL (7-18); BUN/CREATININE RATIO 18.8 (5.4-32.0); CALCIUM 8.7 MG/DL (8.5-10.1); CHLORIDE 108 MMOL/L (99-107); CREATININE 0.85 MG/DL (0.60-1.10); GLUCOSE 139 MG/DL (70-104); POTASSIUM 3.9 MMOL/L (3.5-5.1); SODIUM 143 MMOL/L (135-145); TOTAL CARBON DIOXIDE 26.9 MMOL/L (24-32); eGFR > 90 ML/MIN
--- NOTE | 2019-02-14 06:40 | NUR ---
Problems reprioritized. Patient report given, questions answered & plan of care reviewed with LIDA LESTER.
--- NOTE | 2019-02-14 06:43 | NUR ---
Patient in room [facility] 356. I have received report from Michelle LESTER and had the opportunity to ask questions and assume patient care.
[2019-02-14 07:00] VITALS: BP 134/60
[2019-02-14] MEDS: lactobacillus rhamnosus 10,000 MMU CELLS/CAPSULE PO SCH (07:36)
[2019-02-14] MEDS: thiamine 100mg tablet PO SCH (07:36)
[2019-02-14] MEDS: metoprolol tartrate 25mg tablet PO SCH (07:36)
[2019-02-14] MEDS: metFORMIN 500mg tablet PO SCH (07:36)
[2019-02-14] MEDS: multivitamins, therapeutics tablet PO SCH (07:36)
[2019-02-14] MEDS: clopidogrel 75mg tablet PO SCH (07:37)
[2019-02-14] MEDS: lisinopril 5mg tablet PO SCH (07:37)
[2019-02-14] MEDS: atorvastatin 20mg tablet PO SCH (07:37)
[2019-02-14] MEDS: aspirin 81mg tablet.DR PO SCH (07:37)
[2019-02-14 11:00] VITALS: BP 103/57
--- NOTE | 2019-02-14 14:52 | NUR ---
Initial: Pt admit s/p carotid endartectomy. PO 100% meals meeting needs. LBM 02/13. No nutrition concerns at this time. Addendum: 02/14/19 at [address] Amended: Links added.
[2019-02-14] MEDS ORDERED: HYDR-4353 PO (16:11)
[2019-02-14] MEDS ORDERED: SULF1TAB49 PO (16:15)
--- NOTE | 2019-02-14 17:48 | NUR ---
Discharge instructions given to patient, patient verbalized understanding of all instructions made. Peripheral IV catheter removed,tip intact. Telemonitor discontinued. Provena wound dressing discontinued, wound stapled, island dressing applied. New prescription for Bactrim called in to [facility] pharmacy at [place] [facility] c/o Danita,Multilith Operator. Written prescription for norco given to patient.
--- NOTE | 2019-02-14 18:18 | NUR ---
Problems reprioritized. Patient report given, questions answered & plan of care reviewed with Michelle LESTER.
--- NOTE | 2019-02-14 18:20 | NUR ---
Patient in room [facility] 356. I have received report from LIDA LESTER and had the opportunity to ask questions and assume patient care.
--- NOTE | 2019-02-14 18:25 | NUR ---
PATIENT READY FOR DISCHARGE JUST WAITING FOR HIS TO PICK HIM UP.
--- NOTE | 2019-02-14 18:40 | NUR ---
PATIENT LEFT FOR DISCHARGE HOME WITH AND GRANDDAUGHTER IN A WHEELCHAIR WITH STAFF TO THE FRONT DOOR.
== END 2019-02-14 18:40 | disposition home health service (06) | DRG 181 ==
LOC: PAS IN 05:26 → EDSTATUS 07:30 → ICU 2S 12:49 → SUR 3N 02-12 03:15
PROVIDERS: ADMIT Surgery; ATTEND Surgery
PROC: 04CV0ZZ Extirpation of Matter from Right Foot Artery, Open Approach (ICD-10-PCS; 2019-02-09)
PROC: 04UK0KZ Supplement Right Femoral Artery with Nonautologous Tissue Substitute, Open Approach (ICD-10-PCS; 2019-02-09)
PROC: 04U Lower Arteries, Supplement (ICD-10-PCS; 2019-02-09)
PROC: 0KCQ0ZZ Extirpation of Matter from Right Upper Leg Muscle, Open Approach (ICD-10-PCS; 2019-02-09)
PROC: 04CK0ZZ Extirpation of Matter from Right Femoral Artery, Open Approach (ICD-10-PCS; principal; 2019-02-09 07:38)
PROC: 30233N1 Transfusion of Nonautologous Red Blood Cells into Peripheral Vein, Percutaneous Approach (ICD-10-PCS; 2019-02-10)
DX: T82.858A Stenosis of other vascular prosthetic devices, implants and grafts, initial encounter (principal); E11.51 Type 2 diabetes mellitus with diabetic peripheral angiopathy without gangrene; Y83.2 Surgical operation with anastomosis, bypass or graft as the cause of abnormal reaction of the patient, or of later complication, without mention of misadventure at the time of the procedure; I10 Essential (primary) hypertension; J44.9 Chronic obstructive pulmonary disease, unspecified; Z87.891 Personal history of nicotine dependence; Y92.89 Other specified places as the place of occurrence of the external cause; Z88.0 Allergy status to penicillin; S30.1XXA Contusion of abdominal wall, initial encounter; X58.XXXA Exposure to other specified factors, initial encounter; Y93.89 Activity, other specified; Y92.238 Other place in hospital as the place of occurrence of the external cause; Y99.8 Other external cause status
CPT/HCPCS: 36415; 71046; 73552; 76937; 77002; 80048; 80053; 80202; 81001; 82948; 83036; 84484; 85025; 85027; 85610; 85730; 86885; 86900; 86901; 86920; 87081; 93005; 93922; 97110; 97116; 97162; A4618; A6258; A6455; A7000; C1758; C1768; G0378; J0690; J1100; J1170; J1644; J2001; J2250; J2270; J2405; J2704; J2710; J2720; J3010; J3370; J3480; J3490; J7030; J7040; J7120; P9016; Q9967

== ENCOUNTER 2019-02-17 17:29 | Emergency (ER) | payer MEDICAID ==
[~2019-02-17] VITALS: Ht 162.6 cm; Wt 67.6 kg
[~2019-02-17 17:29] MED LIST changes: +HYDR-4353 PO; +SULF1TAB49 PO; +THIA100T66 PO; -VITAMIN B1 PO
[2019-02-17 18:58] LABS: BASOPHILS # (AUTO) 0.1 X10'3 (0-0.2); BASOPHILS % (AUTO) 0.8 % (0-1); EOSINOPHILS # (AUTO) 0.3 X10'3 (0-0.9); EOSINOPHILS % (AUTO) 3.1 % (0-6); HEMATOCRIT 32.1 % (42.0-52.0); HEMOGLOBIN 10.8 g/dl (14.0-17.9); LYMPHOCYTES # (AUTO) 2.9 X10'3 (1.1-4.8); LYMPHOCYTES % (AUTO) 32.8 % (21-51); MEAN CORPUSCULAR HEMOGLOBIN 29.6 PG (27.0-31.0); MEAN CORPUSCULAR HGB CONC 33.6 g/dL (33.0-36.5); MEAN CORPUSCULAR VOLUME 88.2 FL (78-98); MEAN PLATELET VOLUME 8.7 FL (7.4-10.4); MONOCYTES # (AUTO) 1.1 X10'3 (0-0.9); MONOCYTES % (AUTO) 12.7 % (2-12); NEUTROPHILS # (AUTO) 4.5 X10'3 (1.8-7.7); NEUTROPHILS % (AUTO) 50.6 % (42-75); PLATELET COUNT 312 X10'3 (140-440); RED BLOOD COUNT 3.64 X10'6 (4.70-6.10); WHITE BLOOD COUNT 8.9 X10'3 (4.5-11.0)
[2019-02-17 19:09] LABS: PARTIAL THROMBOPLASTIN TIME 29 SECONDS (22-32)
[2019-02-17 19:16] LABS: ALBUMIN 3.8 G/DL (3.4-5.0); ALBUMIN/GLOBULIN RATIO 0.8 (1.1-1.5); ANION GAP 11 (8-16); ASPARTATE AMINO TRANSFERASE 27 U/L (10-37); BILIRUBIN,TOTAL 0.5 MG/DL (0.1-1.0); BLOOD UREA NITROGEN 28 MG/DL (7-18); BUN/CREATININE RATIO 20.3 (5.4-32.0); CALCIUM 9.3 MG/DL (8.5-10.1); CHLORIDE 105 MMOL/L (99-107); CREATININE 1.38 MG/DL (0.60-1.10); GLUCOSE 94 MG/DL (70-104); POTASSIUM 4.4 MMOL/L (3.5-5.1); SODIUM 141 MMOL/L (135-145); TOTAL CARBON DIOXIDE 25.2 MMOL/L (24-32); TOTAL PROTEIN 8.8 G/DL (6.4-8.2); eGFR 52 ML/MIN
[2019-02-17 19:17] LABS: ALANINE AMINOTRANSFERASE 36 U/L (12-78); ALKALINE PHOSPHATASE 84 IU/L (46-116)
[2019-02-17] MEDS ORDERED: normal saline 1000ml 1,000 ML IV ONE (20:30)
[2019-02-17] MEDS ORDERED: iohexol 350MG/ML 100ml bottle IV ONE (20:48)
[2019-02-17] MEDS ORDERED: enoxaparin 100mg/ml syringe SUBCUT ONE (20:50)
[2019-02-17] MEDS ORDERED: MESSAGE TO NURSING PO NR (21:00)
[2019-02-17 23:24] VITALS: BP 140/74
== END 2019-02-17 23:26 | disposition home or self-care (01) ==
LOC: ER 17:30
DX: R60.0 Localized edema (principal); I10 Essential (primary) hypertension; E11.9 Type 2 diabetes mellitus without complications; F10.99 Alcohol use, unspecified with unspecified alcohol-induced disorder; R79.1 Abnormal coagulation profile; Z98.890 Other specified postprocedural states; Z60.2 Problems related to living alone; Z56.0 Unemployment, unspecified; Z88.0 Allergy status to penicillin; Z79.82 Long term (current) use of aspirin; Z79.84 Long term (current) use of oral hypoglycemic drugs; Z79.899 Other long term (current) drug therapy; Y90.9 Presence of alcohol in blood, level not specified
CPT/HCPCS: 36415; 71045; 71275; 80053; 82948; 84484; 85025; 85610; 85730; 93005; 93971; 96372; 99285; J7030; Q9967; J1650

== ENCOUNTER 2022-06-30 10:19 | Emergency (ER) | payer MEDICARE, MEDICAID ==
[~2022-06-30] VITALS: Ht 162.6 cm; Wt 69.5 kg
[~2022-06-30 10:19] MED LIST changes: +CHOL500044 PO; +FERR324T4 PO; -HYDR-4353 PO; -LISI-604 PO; +LOP25T PO; +METF-1203 PO; -METF-950 PO; -METO25TA6 PO; +MULT-620 PO; -MULT1TAB74 PO; -SULF1TAB49 PO
[2022-06-30 10:41] VITALS: BP 121/67
--- NOTE | 2022-06-30 13:24 | NUR ---
REVIEWED ANIMAL EVISCERATOR ASSESSMENT AND AGREE WITH FINDINGS
== END 2022-06-30 13:38 | disposition home or self-care (01) ==
LOC: ER 10:19
DX: R10.32 Left lower quadrant pain (principal); I10 Essential (primary) hypertension; E11.9 Type 2 diabetes mellitus without complications; Z56.0 Unemployment, unspecified; Z60.2 Problems related to living alone; Z72.89 Other problems related to lifestyle; Z88.0 Allergy status to penicillin; Z79.82 Long term (current) use of aspirin; Z79.899 Other long term (current) drug therapy; Z79.84 Long term (current) use of oral hypoglycemic drugs
CPT/HCPCS: 93926; 99284

== ENCOUNTER 2022-10-24 09:19 | Emergency (ER) | payer MEDICARE, MEDICAID ==
[~2022-10-24] VITALS: Ht 162.6 cm; Wt 63.0 kg
[2022-10-24 09:36] VITALS: BP 135/56
[2022-10-24] MEDS ORDERED: CEPH-585 PO (10:01)
== END 2022-10-24 10:24 | disposition home or self-care (01) ==
LOC: ER 09:20
DX: L02.611 Cutaneous abscess of right foot (principal); I10 Essential (primary) hypertension; E11.9 Type 2 diabetes mellitus without complications; Z56.0 Unemployment, unspecified; Z88.0 Allergy status to penicillin; Z79.899 Other long term (current) drug therapy; Z79.82 Long term (current) use of aspirin
CPT/HCPCS: 10060; 99283

== ENCOUNTER 2023-07-12 10:42 | Day surgery (SDC) | payer MEDICARE, MEDICAID ==
[2023-07-09 10:26] LABS: BASOPHILS # (AUTO) 0.1 X10'3 (0-0.2); BASOPHILS % (AUTO) 1.2 % (0-1); EOSINOPHILS # (AUTO) 0.2 X10'3 (0-0.9); EOSINOPHILS % (AUTO) 3.7 % (0-6); HEMATOCRIT 38.8 % (42.0-52.0); HEMOGLOBIN 13.1 g/dl (14.0-17.9); LYMPHOCYTES # (AUTO) 2.4 X10'3 (1.1-4.8); LYMPHOCYTES % (AUTO) 36.4 % (21-51); MEAN CORPUSCULAR HEMOGLOBIN 29.7 PG (27.0-31.0); MEAN CORPUSCULAR HGB CONC 33.8 g/dL (33.0-36.5); MEAN PLATELET VOLUME 10.1 FL (7.4-10.4); MONOCYTES # (AUTO) 0.7 X10'3 (0-0.9); MONOCYTES % (AUTO) 10.5 % (2-12); NEUTROPHILS # (AUTO) 3.2 X10'3 (1.8-7.7); NEUTROPHILS % (AUTO) 48.2 % (42-75); PLATELET COUNT 161 X10'3 (140-440); RED BLOOD COUNT 4.41 X10'6 (4.70-6.10); RED CELL DISTRIBUTION WIDTH 12.2 % (11.5-14.5); WHITE BLOOD COUNT 6.7 X10'3 (4.5-11.0)
[2023-07-09 10:50] LABS: APTT 29 SECONDS (22-32); INR 1.1 INR; PROTHROMBIN TIME 11.3 SECONDS (9.0-12.0)
[2023-07-09 10:54] LABS: ALBUMIN 3.8 G/DL (3.4-5.0); ANION GAP 9 (8-16); CALCIUM 9.1 MG/DL (8.5-10.1); CHLORIDE 104 MMOL/L (99-107); CREATININE 1.04 MG/DL (0.60-1.10); GLUCOSE 129 MG/DL (70-104); SODIUM 141 MMOL/L (135-145); TOTAL CARBON DIOXIDE 27.6 MMOL/L (24-32); eGFR 71 ML/MIN
[2023-07-09 10:55] LABS: CHOLESTEROL 111 MG/DL (0-200); HDL CHOLESTEROL 56 MG/DL (35-60); LDL CHOLESTEROL 43 MG/DL (50-100); TRIGLYCERIDES 78 MG/DL (20-135)
[2023-07-09 10:57] LABS: BLOOD UREA NITROGEN 18 MG/DL (7-18); BUN/CREATININE RATIO 17.3 (10.0-20.0); POTASSIUM 4.1 MMOL/L (3.5-5.1)
[2023-07-12] VITALS (12 sets, daily range): BP systolic 88–174; BP diastolic 45–94; PULSE 15–87; RESP 10–16; TEMP 97.5; O2SAT 95–99
[~2023-07-12] VITALS: Ht 162.6 cm; Wt 70.0 kg
[2023-07-12] MEDS ORDERED: DOCU-22 PO (11:05)
[2023-07-12] MEDS ORDERED: NITR0.4T48 SL (11:05)
[2023-07-12] MEDS ORDERED: METF-900 PO (11:05)
[2023-07-12] MEDS ORDERED: METO50TA16 PO (11:05)
[2023-07-12] MEDS ORDERED: VITC500T PO (11:05)
[2023-07-12] MEDS: LORazepam 0.5 MG tablet PO PRN (11:48)
[2023-07-12] MEDS: diphenhydrAMINE 25mg capsule PO PRN (11:49)
[2023-07-12] MEDS: normal saline 1,000 ML IV SCH (11:49)
[2023-07-12] MEDS ORDERED: fentaNYL/PF 50MCG/1 ML 2ML syringe ONE (11:57)
[2023-07-12] MEDS ORDERED: LIDOcaine 1% 30ml preserv. free vial ONE (11:57)
[2023-07-12] MEDS ORDERED: midazolam 1 mg/ML 2ml injection ONE (11:57)
[2023-07-12] MEDS ORDERED: iohexol 350MG/ML 100ml bottle IV ONE (11:58)
[2023-07-12] MEDS ORDERED: HYDROcodone/acetaminophen 10/325mg tab PO PRN (14:35)
[2023-07-12] MEDS ORDERED: HYDROcodone/acetaminophen 5mg/325mg tablet PO PRN (14:35)
[2023-07-12 15:33] LABS: ISTAT HGB ART 11.2 g/dl (14.0-17.9); ISTAT HGB MIX 11.9 g/dl (14.0-17.9); ISTAT Hct ART 33 %PCV (42-52); ISTAT Hct MIX 35 %PCV (42-52); ISTAT O2 SATURATION ARTERIAL 96 % (95-98); ISTAT O2 SATURATION MIX VENOUS 64 % (60-80); ISTAT SOURCE BLNK; ISTAT SOURCE VEN
[2023-07-12] MEDS: hydrALAZINE 20mg/ml inj. IV ONE (16:06)
== END 2023-07-12 18:25 | disposition home or self-care (01) ==
LOC: SSTAY O 10:42
PROVIDERS: ATTEND Student in an Organized Health Care Education/Training Program
DX: I35.0 Nonrheumatic aortic (valve) stenosis (principal); T82.855A Stenosis of coronary artery stent, initial encounter; I25.10 Atherosclerotic heart disease of native coronary artery without angina pectoris; I25.82 Chronic total occlusion of coronary artery; I73.9 Peripheral vascular disease, unspecified; E78.5 Hyperlipidemia, unspecified; I47.10 Supraventricular tachycardia, unspecified; I25.2 Old myocardial infarction; I10 Essential (primary) hypertension; E11.9 Type 2 diabetes mellitus without complications; Z88.0 Allergy status to penicillin; Z79.899 Other long term (current) drug therapy; Z79.01 Long term (current) use of anticoagulants; Y84.0 Cardiac catheterization as the cause of abnormal reaction of the patient, or of later complication, without mention of misadventure at the time of the procedure; Y92.89 Other specified places as the place of occurrence of the external cause
CPT/HCPCS: 36415; 76937; 80048; 80061; 82803; 82948; 85014; 85025; 85610; 85730; 93005; 93460; 99152; 99153; A6258; J0360; J1644; J2250; J3010; J3490; J7030; Q0163; Q9967; A6402; A6449; C1725; C1751; C1769; C1894

== ENCOUNTER 2023-09-21 11:31 | Outpatient (CLI) | payer MEDICARE, MEDICAID ==
[~2023-09-21 11:31] MED LIST changes: -CLOP75TA15 PO; +DOCU-22 PO; -FERR324T4 PO; +HYDR-3972 PO; -METF-1203 PO; +METF-438 PO; +PSYL0.4C2 PO; +VITC500T PO
== END 2023-09-21 23:59 | disposition home or self-care (01) ==
LOC: RAD 11:31
PROVIDERS: ATTEND Thoracic Surgery (Cardiothoracic Vascular Surgery)
DX: J90 Pleural effusion, not elsewhere classified (principal); Z95.2 Presence of prosthetic heart valve; Z98.61 Coronary angioplasty status
CPT/HCPCS: 71046

== ENCOUNTER 2023-10-14 06:48 | Day surgery (SDC) | payer MEDICARE, MEDICAID ==
[2023-10-14] VITALS (7 sets, daily range): BP systolic 118–141; BP diastolic 67–82; PULSE 71–80; RESP 14–16; TEMP 98.1; O2SAT 98–100
[~2023-10-14] VITALS: Ht 162.6 cm; Wt 64.7 kg
[2023-10-14] MEDS ORDERED: ALBU18HF2 INH (07:23)
[2023-10-14] MEDS ORDERED: METO50TA16 PO (07:23)
== END 2023-10-14 09:05 | disposition home or self-care (01) ==
LOC: SSTAY O 06:48
PROVIDERS: ATTEND Internal Medicine Critical Care Medicine
DX: J90 Pleural effusion, not elsewhere classified (principal)
CPT/HCPCS: 32555; C1729

== ENCOUNTER 2024-01-21 09:47 | Day surgery (SDC) | payer MEDICARE, MEDICAID ==
[2024-01-20 11:54] LABS: BILIRUBIN,URINE NEGATIVE (Neg); CLARITY,URINE CLEAR (Clear); COLOR,URINE YELLOW (Yellow); GLUCOSE, URINE NEGATIVE (Neg); KETONES,URINE NEGATIVE (Neg); LEUKOCYTE ESTERASE ,URINE NEGATIVE (Neg); NITRITES, URINE NEGATIVE (Neg); OCCULT BLOOD,URINE TRACE-INTACT (Neg); PROTEIN,URINE NEGATIVE (Neg); UROBILINOGEN,URINE 0.2 E.U/dL (0.2-1.0)
[2024-01-20 12:01] LABS: UA COLLECTION TYPE CLN CATCH MIDSTREAM
[2024-01-20 12:02] LABS: BASOPHILS # (AUTO) 0.1 X10'3 (0-0.2); BASOPHILS % (AUTO) 1.2 % (0-1); EOSINOPHILS # (AUTO) 0.3 X10'3 (0-0.9); EOSINOPHILS % (AUTO) 3.3 % (0-6); LYMPHOCYTES # (AUTO) 3.1 X10'3 (1.1-4.8); LYMPHOCYTES % (AUTO) 38.2 % (21-51); MEAN CORPUSCULAR HGB CONC 32.5 g/dL (33.0-36.5); MEAN CORPUSCULAR VOLUME 83.2 FL (78-98); MEAN PLATELET VOLUME 9.1 FL (7.4-10.4); MONOCYTES # (AUTO) 0.9 X10'3 (0-0.9); MONOCYTES % (AUTO) 11.4 % (2-12); NEUTROPHILS # (AUTO) 3.7 X10'3 (1.8-7.7); NEUTROPHILS % (AUTO) 45.9 % (42-75); PRE OP HEMATOCRIT 36.7 % (42.0-52.0); PRE OP HEMOGLOBIN 11.9 g/dL (14.0-17.9); PRE OP PLATELET COUNT 165 X10'3 (140-440); PRE OP WHITE BLOOD COUNT 8.2 10'3 (4.8-10.8); RED BLOOD COUNT 4.41 X10'6 (4.70-6.10); RED CELL DISTRIBUTION WIDTH 18.8 % (11.5-14.5)
[2024-01-20 12:02] LABS: BACTERIA,URINE NONE SEEN /HPF (Neg); SQUAMOUS EPITHELIAL CELL,UR FEW /LPF (FEW); WBC,URINE 0-4 /HPF (0-4)
[2024-01-20 12:14] LABS: PRE OP INR 1.1 INR; PRE OP PROTIME 11.6 SECONDS (9.0-12.0)
[2024-01-20 12:18] LABS: ALBUMIN 3.7 G/DL (3.4-5.0); ALBUMIN/GLOBULIN RATIO 0.8 (1.1-1.5); ALKALINE PHOSPHATASE 103 IU/L (46-116); BLOOD UREA NITROGEN 26 MG/DL (7-18); BUN/CREATININE RATIO 23.6 (10.0-20.0); CHLORIDE 101 MMOL/L (99-107); PRE OP ALT 31 U/L (30-65); PRE OP ANION GAP 7 (8-16); PRE OP AST 21 U/L (10-37); PRE OP BILIRUB, TOTAL 0.3 MG/DL (0.0-1.0); PRE OP GLUCOSE 105 MG/DL (70-104); PRE OP SODIUM 135 MMOL/L (135-145); TOTAL CARBON DIOXIDE 27.3 MMOL/L (24-32); TOTAL PROTEIN 8.3 G/DL (6.4-8.2); eCRCL 55 ML/MIN; eGFR 67 ML/MIN
[2024-01-20 12:24] LABS: ANISOCYTOSIS 2+; PLATELET ESTIMATE NORMAL
[2024-01-20 12:25] LABS: ELLIPTOCYTES FEW
[~2024-01-21] VITALS: Ht 162.6 cm; Wt 66.2 kg
[2024-01-21] VITALS (14 sets, daily range): BP systolic 146–180; BP diastolic 56–88; PULSE 59–88; RESP 10–16; TEMP 97.6; O2SAT 94–100
[2024-01-21] MEDS: DOCUMENT DATE & TIME OF BETA-BLOCKER PO ONE (08:00)
[2024-01-21] MEDS: clindamycin-Cleocin 900mg/D5W 50 ML IV ONE (08:57)
[~2024-01-21 09:47] MED LIST changes: +ALBU18HF2 INH; +AMLO1CAP6 PO; +GABA300T28 PO; -HYDR-3972 PO; -LOP25T PO; +METO100T14 PO; +NITR0.4T51 SL; -PSYL0.4C2 PO; +ringers solution, lacted 1,000 ML IV SCH
[2024-01-21] MEDS: famotidine 20mg tablet PO ONE (10:47)
[2024-01-21] MEDS ORDERED: proCHLORperazine 10 MG/2 ml inj IV PRN ×2 (13:10→14:25)
[2024-01-21] MEDS ORDERED: ondansetron/PF 4mg/2ml inj IV PRN ×2 (13:10→14:25)
[2024-01-21] MEDS ORDERED: meperidine/PF 25mg/ml syringe IV PRN ×6 (13:10→14:25)
[2024-01-21] MEDS ORDERED: enalaprilat dihydrate 2.5mg/2ml vial IV PRN (13:10)
[2024-01-21] MEDS ORDERED: morphine 2 MG/ML inj. syringe IV PRN ×2 (13:10→14:25)
[2024-01-21] MEDS ORDERED: morphine 4 MG/ML inj SYRINge IV PRN ×2 (13:10→14:25)
[2024-01-21] MEDS ORDERED: ringers solution, lacted 1,000 ML IV SCH ×2 (13:10→14:25)
[2024-01-21] MEDS ORDERED: sevoflurane 250ml liquid IH ONE (14:00)
[2024-01-21] MEDS ORDERED: fentaNYL/PF 50MCG/1 ML 2ML syringe ONE (14:11)
[2024-01-21] MEDS ORDERED: midazolam 1 mg/ML 2ml injection ONE (14:14)
[2024-01-21] MEDS ORDERED: ondansetron/PF 4mg/2ml inj ONE (14:21)
[2024-01-21] MEDS ORDERED: dexamethasone sod phosphate 4mg/ml inj. ONE (14:21)
[2024-01-21] MEDS ORDERED: propofol inj 20 ML IV ONE (14:21)
[2024-01-21] MEDS ORDERED: LIDOcaine 2% (20mg/ml) 5ml vial ONE (14:21)
[2024-01-21] MEDS ORDERED: hydrALAZINE 20mg/ml inj. IV PRN (14:25)
[2024-01-21] MEDS ORDERED: labetalol 20mg/4ml (5mg/ml) syringe IV PRN (14:25)
[2024-01-21] MEDS ORDERED: labetalol 20mg/4ml (5mg/ml) syringe IV ONE (14:25)
[2024-01-21] MEDS ORDERED: acetaminophen 1,000mg/100ml IV 100 ML IV ONE (14:25)
[2024-01-21] MEDS ORDERED: 0.9 % SODIUM CHLORIDE 10 ML VIAL ONE (14:31)
[2024-01-21] MEDS ORDERED: ePHEDrine 50MG/ML INJ. ONE (14:31)
[2024-01-21] MEDS: labetalol 20mg/4ml (5mg/ml) syringe IV PRN (15:44)
[2024-01-21] MEDS: BUPIVAcaine/PF 2.5mg/ml (0.25%) 10ml vial ONE (16:17)
== END 2024-01-21 16:38 | disposition home or self-care (01) ==
LOC: PRE-OP 09:47
PROVIDERS: ATTEND Surgery
DX: M31.6 Other giant cell arteritis (principal); I10 Essential (primary) hypertension; E11.42 Type 2 diabetes mellitus with diabetic polyneuropathy; E78.5 Hyperlipidemia, unspecified; J44.9 Chronic obstructive pulmonary disease, unspecified; I25.2 Old myocardial infarction; Z79.82 Long term (current) use of aspirin; Z79.84 Long term (current) use of oral hypoglycemic drugs; Z79.899 Other long term (current) drug therapy; Z95.1 Presence of aortocoronary bypass graft; Z95.4 Presence of other heart-valve replacement; Z90.89 Acquired absence of other organs; Z98.890 Other specified postprocedural states; Z88.0 Allergy status to penicillin
CPT/HCPCS: 36415; 37609; 71046; 80053; 81001; 82948; 85025; 85610; 85730; 93005; A4215; A4618; A7000; J1100; J2001; J2250; J2371; J2405; J2704; J3010; J3490; J7030; J7120; Z7506; Z7508; Z7512; Z7610; 85008; 88305; 88313